=== PATIENT | male | born 1960 | race Caucasian/White ===

== ENCOUNTER → 2016-07-31 | Outpatient (REF) | payer OTHER, MEDICARE | LOC: M SFHCPLAZ 16:46 | PROVIDERS: ATTEND Dermatology | DX: L30.1 Dyshidrosis [pompholyx] (principal) ==

== ENCOUNTER 2017-06-11 14:21 | Emergency (ER) | payer OTHER, MEDICARE ==
[2017-06-11] MEDS: NS 1,000 ML IV (17:15)
[2017-06-11 17:32] LABS: BASO # 0.1 10^3/uL (0.0-0.2); BASO % 0.8 % (0.0-1.0); EOS # 0.5 10^3/uL (0.0-0.50); EOS % 4.7 % (0.0-3.0); IMMATURE GRANULOCYTE # 0.1 10^3/uL (0-0); IMMATURE GRANULOCYTE % 0.6 % (0-0); LYMPH # 3.8 10^3/uL (1.5-4.5); LYMPH % 33.9 % (24.0-44.0); MEAN CORPUSCULAR HEMOGLOBIN 29.9 pg (27.0-33.0); MEAN CORPUSCULAR HGB CONC 33.3 g/dl (32.0-36.5); MEAN CORPUSCULAR VOLUME 89.9 fl (80.0-96.0); MONO # 0.7 10^3/uL (0.0-0.8); MONO % 6.5 % (0.0-5.0); NEUTROPHILS # 6.1 10^3/uL (1.8-7.7); NEUTROPHILS % 53.5 % (36.0-66.0); PLATELET COUNT, AUTOMATED 372 10^3/uL (150-450); RED CELL DISTRIBUTION WIDTH 12.6 % (11.5-14.5); WHITE BLOOD COUNT 11.3 10^3/uL (4.0-10.0)
[2017-06-11 18:09] LABS: ALBUMIN 4.3 GM/DL (3.2-5.2); ALBUMIN/GLOBULIN RATIO 1.05 (1.00-1.93); ALKALINE PHOSPHATASE 91 U/L (45-117); ALT/SGPT 17 U/L (12-78); AMYLASE 33 U/L (25-115); ANION GAP 5 MEQ/L (8-16); AST/SGOT 12 U/L (7-37); BILIRUBIN,DIRECT 0.1 MG/DL (0.0-0.2); BILIRUBIN,TOTAL 0.4 MG/DL (0.2-1.0); BLOOD UREA NITROGEN 15 MG/DL (7-18); CARBON DIOXIDE LEVEL 32 MEQ/L (21-32); CHLORIDE LEVEL 102 MEQ/L (98-107); CREATININE FOR GFR 0.94 MG/DL (0.70-1.30); GLOMERULAR FILTRATION RATE > 60.0 (>56); GLUCOSE, FASTING 82 MG/DL (70-105); POTASSIUM SERUM 3.8 MEQ/L (3.5-5.1); SODIUM LEVEL 139 MEQ/L (136-145); TOTAL PROTEIN 8.4 GM/DL (6.4-8.2)
== END 2017-06-11 19:38 | disposition home or self-care (01) ==
LOC: M ED 14:21
DX: S39.011A Strain of muscle, fascia and tendon of abdomen, initial encounter (principal); X58.XXXA Exposure to other specified factors, initial encounter; Y92.9 Unspecified place or not applicable; Y93.9 Activity, unspecified; Z87.19 Personal history of other diseases of the digestive system; Z87.891 Personal history of nicotine dependence; E78.00 Pure hypercholesterolemia, unspecified; J45.909 Unspecified asthma, uncomplicated; Z87.01 Personal history of pneumonia (recurrent); K21.9 Gastro-esophageal reflux disease without esophagitis; Z87.442 Personal history of urinary calculi; N40.0 Benign prostatic hyperplasia without lower urinary tract symptoms; G89.29 Other chronic pain; M54.9 Dorsalgia, unspecified; M25.569 Pain in unspecified knee; F41.9 Anxiety disorder, unspecified; F32.9 Major depressive disorder, single episode, unspecified; Z79.899 Other long term (current) drug therapy
CPT/HCPCS: 76705

== ENCOUNTER → 2017-06-11 | Outpatient (CLI) | payer OTHER, MEDICARE | LOC: M WUC 13:13 | DX: R10.9 Unspecified abdominal pain (principal) ==

== ENCOUNTER → 2017-06-11 | Outpatient (CLI) | payer OTHER, MEDICARE ==
[2017-06-11 16:52] LABS: BASO # 0.1 10^3/uL (0.0-0.2); BASO % 0.9 % (0.0-1.0); EOS # 0.4 10^3/uL (0.0-0.50); EOS % 4.7 % (0.0-3.0); IMMATURE GRANULOCYTE % 0.3 % (0-0); LYMPH # 2.7 10^3/uL (1.5-4.5); MEAN CORPUSCULAR HGB CONC 33.6 g/dl (32.0-36.5); MEAN CORPUSCULAR VOLUME 89.5 fl (80.0-96.0); MONO # 0.7 10^3/uL (0.0-0.8); NEUTROPHILS # 5.5 10^3/uL (1.8-7.7); NEUTROPHILS % 58.1 % (36.0-66.0); PLATELET COUNT, AUTOMATED 337 10^3/uL (150-450); RED CELL DISTRIBUTION WIDTH 12.5 % (11.5-14.5); WHITE BLOOD COUNT 9.4 10^3/uL (4.0-10.0)
[2017-06-11 17:17] LABS: ALBUMIN 3.8 GM/DL (3.2-5.2); ALBUMIN/GLOBULIN RATIO 1.27 (1.00-1.93); ALKALINE PHOSPHATASE 77 U/L (45-117); ALT/SGPT 14 U/L (12-78); AMYLASE 28 U/L (25-115); ANION GAP 5 MEQ/L (8-16); AST/SGOT 9 U/L (7-37); BILIRUBIN,TOTAL 0.4 MG/DL (0.2-1.0); BLOOD UREA NITROGEN 15 MG/DL (7-18); CALCIUM LEVEL 8.5 MG/DL (8.5-10.1); CARBON DIOXIDE LEVEL 30 MEQ/L (21-32); CHLORIDE LEVEL 105 MEQ/L (98-107); CREATININE FOR GFR 0.87 MG/DL (0.70-1.30); GLOMERULAR FILTRATION RATE > 60.0 (>56); GLUCOSE, FASTING 84 MG/DL (70-105); POTASSIUM SERUM 4.4 MEQ/L (3.5-5.1); SODIUM LEVEL 140 MEQ/L (136-145); TOTAL PROTEIN 6.8 GM/DL (6.4-8.2)
== END ==
LOC: M WUC 13:30
DX: R10.11 Right upper quadrant pain (principal)

== ENCOUNTER → 2017-07-03 | Outpatient (REF) | payer OTHER, MEDICARE ==
[2017-07-03 13:06] LABS: HEMATOCRIT 42.3 % (42.0-52.0); HEMOGLOBIN 14.2 g/dl (14.0-18.0); MEAN CORPUSCULAR HGB CONC 33.6 g/dl (32.0-36.5); MEAN CORPUSCULAR VOLUME 89.4 fl (80.0-96.0); PLATELET COUNT, AUTOMATED 296 10^3/uL (150-450); RED BLOOD COUNT 4.73 10^6/uL (4.30-6.10); RED CELL DISTRIBUTION WIDTH 12.5 % (11.5-14.5); WHITE BLOOD COUNT 11.5 10^3/uL (4.0-10.0)
[2017-07-03 13:08] LABS: VITAMIN B12 LEVEL > 2000 PG/ML (247-911)
[2017-07-03 13:21] LABS: ALBUMIN 3.9 GM/DL (3.2-5.2); ALKALINE PHOSPHATASE 74 U/L (45-117); ALT/SGPT 15 U/L (12-78); ANION GAP 5 MEQ/L (8-16); AST/SGOT 11 U/L (7-37); BILIRUBIN,TOTAL 0.3 MG/DL (0.2-1.0); BLOOD UREA NITROGEN 22 MG/DL (7-18); CALCIUM LEVEL 8.4 MG/DL (8.5-10.1); CARBON DIOXIDE LEVEL 28 MEQ/L (21-32); CHLORIDE LEVEL 108 MEQ/L (98-107); CHOLESTEROL LEVEL 159 MG/DL (<200); CHOLESTEROL RISK RATIO 2.944 (<5); CREATININE FOR GFR 0.77 MG/DL (0.70-1.30); FREE T4 0.85 NG/DL (0.76-1.46); GLOMERULAR FILTRATION RATE > 60.0 (>56); GLUCOSE, FASTING 103 MG/DL (70-105); HDL CHOLESTEROL 54 MG/DL (>40); LDL CHOLESTEROL 93.6 MG/DL (<100); NON-HDL-C 105 MG/DL; POTASSIUM SERUM 4.6 MEQ/L (3.5-5.1); PSA SCREENING 0.33 NG/ML (< 4.0); SODIUM LEVEL 141 MEQ/L (136-145); TOTAL PROTEIN 6.9 GM/DL (6.4-8.2); TRIGLYCERIDES LEVEL 57 MG/DL (<150)
== END ==
LOC: M SFHCADAM 10:13
DX: K52.9 Noninfective gastroenteritis and colitis, unspecified (principal); E78.2 Mixed hyperlipidemia; Z12.5 Encounter for screening for malignant neoplasm of prostate; D51.9 Vitamin B12 deficiency anemia, unspecified
CPT/HCPCS: 84443

== ENCOUNTER → 2018-05-20 | Outpatient (CLI) | payer MEDICARE, OTHER ==
[~2018-05-20] MED LIST: DICY10CA13; DULO1CAP3; FINA5TAB2; GABA800T; GASTROGRAFIN SOLUTION 30ML (Q9963) As Ordered ONE; HYDR-3719; ISOVUE-370 76% 100ML VIAL (Q9967) As Ordered ONE; MELO15TA28; MONT10TA2; NAPR-49 PO; OMEP40CA2; ONDA8TAB7; SIMV40TA2; SUCR1TAB56; VENTAER; VIAG100T
--- NOTE | 2018-05-20 17:47 | REP ---
CT abdomen and pelvis with IV and oral contrast: History: Abdomen pain. Abnormal weight loss. Comparison CT study May 27, 2008. CT contrast dose: 100 ml of intravenous Isovue 370. 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 The lung bases are clear. The liver and the spleen are normal in size, homogeneous in texture. No adrenal lesion is seen on either side. No pancreatic abnormality is observed. The kidneys enhance symmetrically. There is an intrarenal calculus at mid pole level in the left kidney which is fairly large measuring 0.8 cm in greatest diameter. No hydronephrosis is seen. No bladder calculus or ureteral calculus is seen. There are dystrophic calcifications in the prostate. Prostate is not felt to be enlarged. Seminal vesicles are unremarkable. No retroperitoneal mass or adenopathy is seen. Normal caliber aorta is noted. There appear to be two adjacent right renal arteries. Small and large intestinal bowel loops are unremarkable. No small or large bowel mass lesion is appreciated. Normal appendix is seen posterior and medial to the cecum. No abdominal adenopathy is seen. No abdominal wall defect is observed. No bony destructive lesion is seen. Degenerative disc changes are noted at multiple levels in the lumbar spine. Impression: Intrarenal nephrolithiasis on the left with an 8 mm intrarenal calculus. Dystrophic calcifications in the prostate. Degenerative disc changes in the lumbar spine. No acute abdominal or pelvic abnormality. Electronically Signed by Jose Mccormack MD 05/20/2018 07:21 P
== END ==
LOC: M RAD 15:09
PROVIDERS: ATTEND Family Medicine
DX: N20.0 Calculus of kidney (principal); N42.0 Calculus of prostate; R10.84 Generalized abdominal pain; R63.4 Abnormal weight loss
CPT/HCPCS: 74177; 80053; 81479; 83520; 84439; 84443; 85025; 85610; 85730; 86255; G0463; Q9963; Q9967

== ENCOUNTER → 2018-10-06 | Outpatient (CLI) | payer MEDICARE, OTHER ==
[~2018-10-06] MED LIST changes: -GABA800T; +GABA800T4; -GASTROGRAFIN SOLUTION 30ML (Q9963) As Ordered ONE; -ISOVUE-370 76% 100ML VIAL (Q9967) As Ordered ONE; -NAPR-49 PO; +NAPR-837 PO
== END ==
LOC: M WUC 09:42
PROVIDERS: ATTEND Internal Medicine Gastroenterology
DX: R19.7 Diarrhea, unspecified (principal)

== ENCOUNTER → 2018-10-07 | Outpatient (CLI) | payer MEDICARE, OTHER ==
[~2018-10-07] MED LIST changes: +GLUCAGON FOR INJ 1 MG VIAL (J1610) As Ordered ONE; +ISOVUE-370 76% 100ML VIAL (Q9967) As Ordered ONE; +VoLumen 0.1% SUSPENSION 450ML BOTTLE As Ordered ONE
--- NOTE | 2018-10-07 16:19 | REP ---
CT Enterography: With IV and oral contrast. History: Diarrhea. Abnormal weight loss. Generalized abdomen pain. Comparison study: Comparison CT study May 20, 2018. CT enterography Technique: The patient ingested oral Volumen for PO contrast per protocol. 0.6 mg of intravenous glucagon is administered. 100 ml of Isovue 370 is given intravenously for intravenous contrast. Helical scanning is acquired. Arterial phase and delayed phase imaging was acquired. Thick slab coronal and sagittal MIP images are generated. In addition coronal and sagittal multiplanar re-formation images are generated and reviewed along with axial images. 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 Lung bases are clear. There is no evidence of pleural effusion or upper abdominal ascites. The patient's stomach is dilated with ingested low density bowel contrast agent. No abnormal wall thickening or gastric mass lesion is seen. The liver and the spleen are normal in size homogeneous in texture. No adrenal lesion is seen. No abnormalities noted in the pancreas. The kidneys enhance symmetrically. There is an intrarenal calculus again noted in the left kidney upper pole region measuring 12 mm in greatest diameter. No hydronephrosis is seen. No retroperitoneal mass or adenopathy is observed. There are dystrophic calcifications in the prostate. Urinary bladder is unremarkable. The jejunal and ileal loops are normal in caliber. No small bowel mass lesion is seen. No abnormal bowel wall enhancement is observed. There are a few normal-sized right lower quadrant mesenteric lymph nodes. No mesenteric adenopathy is seen. No free fluid or free air is observed. Maximal intensity projection images show no additional abnormality. No abdominal wall defect is seen. There are degenerative disc changes in the lumbar spine. Impression: Somewhat dilated stomach. Otherwise negative CT enterography. There is a intrarenal calculus in the left kidney 12 mm in diameter without hydronephrosis. Dystrophic calcifications are seen in the prostate gland. Electronically Signed by Jose Mccormack MD 10/07/2018 04:31 P
== END ==
LOC: M RAD 12:56
PROVIDERS: ATTEND Internal Medicine Gastroenterology
DX: R19.7 Diarrhea, unspecified (principal); R63.4 Abnormal weight loss; N20.0 Calculus of kidney; N42.0 Calculus of prostate
CPT/HCPCS: 74177; J1610; Q9967

== ENCOUNTER 2018-10-29 10:32 | Day surgery (SDC) | payer MEDICARE, OTHER ==
[~2018-10-29] VITALS: Ht 185.4 cm; Wt 99.3 kg
[~2018-10-29 10:32] MED LIST changes: +ADV250INH INH; +CREO24CA PO; +CYMB60CA3 PO; +DICL13PA TD; +FLOM0.4C39 PO; -GLUCAGON FOR INJ 1 MG VIAL (J1610) As Ordered ONE; -ISOVUE-370 76% 100ML VIAL (Q9967) As Ordered ONE; -VoLumen 0.1% SUSPENSION 450ML BOTTLE As Ordered ONE
[2018-10-29] MEDS ORDERED: NS 1,000 ML IV ONE (10:45)
[2018-10-29] MEDS ORDERED: PROPOFOL 200 MG/20 ML VIAL As Ordered ONE (12:36)
[2018-10-29] MEDS ORDERED: LIDOCAINE 2% INJ 100 MG/5 ML SDV (FOR ANES.) As Ordered ONE (12:36)
[2018-10-29] MEDS ORDERED: fentaNYL 100 MCG/2 ML INJECTION (J3010) As Ordered ONE (12:36)
--- NOTE | 2018-10-29 12:45 | ROOR ---
Patient Name: Russell Valdes Procedure Date: 10/29/2018 12:24 PM Date of : 1960 Age: 58 Room: [facility] Gender: Male Note Status: Finalized Procedure: Upper GI endoscopy Indications: Generalized abdominal pain, Nausea, Weight loss Providers: Ck MON[place] MD Referring MD: Reji Damico MD Requesting Provider: Medicines: Monitored Anesthesia Care Complications: No immediate complications. Procedure: Pre-Anesthesia Assessment: - The heart rate, respiratory rate, oxygen saturations, blood pressure, adequacy of pulmonary ventilation, and response to care were monitored throughout the procedure. The Endoscope was introduced through the mouth, and advanced to the third part of duodenum. The upper GI endoscopy was accomplished without difficulty. The patient tolerated the procedure well. Findings: The esophagus was normal. The stomach was normal. Large compliant stomach, sometimes seen in gastroparesis. (Note: contrary to Upper GI from 2009--I do not see any hiatal hernia today) The examined duodenum was normal. Biopsies for histology were taken with a cold forceps in the second portion of the duodenum and in the third portion of the duodenum for evaluation of celiac disease. Impression: - Normal esophagus.- GE junction at 42 cm. Normal Z line - Normal stomach. (No hiatal hernia is seen) - Normal examined duodenum. - Biopsies were taken with a cold forceps for evaluation of celiac disease. Recommendation: - Continue present medications. - Eat smaller, more frequent meals throughout the day. - Low fat diet. - Liquid/soft foods are tolerated better than solid foods. - Low fiber/well cooked vegetables are tolerated better than high fiber/fibrous foods/raw vegetables. - Avoid medications that inhibit gastric/intestinal motility such as narcotic medications. - Telephone endoscopist for pathology results in 2 weeks. Ck Montana MD Ck MONTANA MD 10/29/2018 12:45:01 PM Electronically signed by Ck MONTANA MD Number of Addenda: 0 Note Initiated On: 10/29/2018 12:24 PM Estimated Blood Loss: Estimated blood loss: none.
--- NOTE | 2018-10-29 13:06 | ROOR ---
Patient Name: Russell Valdes Procedure Date: 10/29/2018 12:25 PM Date of : 1960 Age: 58 Room: [facility] Gender: Male Note Status: Finalized Procedure: Colonoscopy Indications: Generalized abdominal pain, Clinically significant diarrhea of unexplained origin, Family history of colon cancer in a distant relative, Weight loss Providers: Ck [place] MD Referring MD: Reji Damico MD Requesting Provider: Medicines: Monitored Anesthesia Care Complications: No immediate complications. Procedure: Pre-Anesthesia Assessment: - The heart rate, respiratory rate, oxygen saturations, blood pressure, adequacy of pulmonary ventilation, and response to care were monitored throughout the procedure. The Colonoscope was introduced through the anus and advanced to 15 cm into the ileum. The colonoscopy was performed without difficulty. The patient tolerated the procedure well. The quality of the bowel preparation was good. Findings: The perianal and digital rectal examinations were normal. The colon (entire examined portion) was redundant. A 5 mm polyp was found in the sigmoid colon. The polyp was sessile. The polyp was removed with a cold snare. Resection and retrieval were complete. Small Internal Hemorrhoids. The exam was otherwise normal throughout the examined colon. The terminal ileum appeared normal. Biopsies for histology were taken with a cold forceps for evaluation of microscopic colitis. Impression: - One 5 mm polyp in the sigmoid colon, removed with a cold snare. Resected and retrieved. - Small Internal Hemorrhoids. - The colon is otherwise normal. - The terminal ileum is normal. - Biopsies were taken with a cold forceps for evaluation of microscopic colitis. Recommendation: - Continue present medications. - Telephone endoscopist for pathology results in 2 weeks. - If the pathology report reveals adenomatous tissue, then repeat the colonoscopy for surveillance in 5 years. Ck Montana MD Ck MONTANA MD 10/29/2018 1:05:51 PM Electronically signed by Ck MONTANA MD Number of Addenda: 0 Note Initiated On: 10/29/2018 12:25 PM Estimated Blood Loss: Estimated blood loss: none.
[2018-10-29 13:25] VITALS: BP 110/80
== END 2018-10-29 13:36 | disposition home or self-care (01) ==
LOC: M OPP 10:32
PROVIDERS: ATTEND Internal Medicine Gastroenterology
DX: K63.5 Polyp of colon (principal); Q43.8 Other specified congenital malformations of intestine; R10.84 Generalized abdominal pain; R19.7 Diarrhea, unspecified; Z80.0 Family history of malignant neoplasm of digestive organs; R11.0 Nausea; Z79.891 Long term (current) use of opiate analgesic; Z79.899 Other long term (current) drug therapy; Z87.891 Personal history of nicotine dependence
CPT/HCPCS: 43239; 45380; 45385; 88305; J3010

== ENCOUNTER → 2019-04-13 | Outpatient (REF) | payer MEDICARE, OTHER ==
[~2019-04-13] MED LIST changes: -DULO1CAP3; +DULO1CAP6; -OMEP40CA2; +OMEP40CA97
[2019-04-13 13:08] LABS: HEMATOCRIT 45.1 % (42.0-52.0); HEMOGLOBIN 14.9 g/dl (13.5-17.5); MEAN CORPUSCULAR HEMOGLOBIN 30.5 pg (27.0-33.0); MEAN CORPUSCULAR VOLUME 92.2 fl (80.0-96.0); PLATELET COUNT, AUTOMATED 287 10^3/uL (150-450); RED BLOOD COUNT 4.89 10^6/uL (4.30-6.10); WHITE BLOOD COUNT 10.3 10^3/uL (4.0-10.0)
[2019-04-13 13:23] LABS: ALBUMIN 3.9 GM/DL (3.2-5.2); ALT/SGPT 19 U/L (12-78); BILIRUBIN,TOTAL 0.5 MG/DL (0.2-1.0); BLOOD UREA NITROGEN 22 MG/DL (7-18); CALCIUM LEVEL 9.5 MG/DL (8.5-10.1); CARBON DIOXIDE LEVEL 29 MEQ/L (21-32); CHLORIDE LEVEL 107 MEQ/L (98-107); CHOLESTEROL LEVEL 178 MG/DL (<200); CHOLESTEROL RISK RATIO 2.438 (<5); CREATININE FOR GFR 0.83 MG/DL (0.70-1.30); GLOMERULAR FILTRATION RATE > 60.0 (>56); GLUCOSE, FASTING 97 MG/DL (70-100); HDL CHOLESTEROL 73 MG/DL (>40); LDL CHOLESTEROL 84 MG/DL (<100); NON-HDL-C 105 MG/DL; POTASSIUM SERUM 4.2 MEQ/L (3.5-5.1); SODIUM LEVEL 140 MEQ/L (136-145); TOTAL PROTEIN 7.1 GM/DL (6.4-8.2); TRIGLYCERIDES LEVEL 106 MG/DL (<150)
[2019-04-13 13:25] LABS: FOLATE 13.5 NG/ML; VITAMIN B12 LEVEL > 2000 PG/ML
== END ==
LOC: M SFHCADAM 10:12
PROVIDERS: ATTEND Family Medicine
DX: K52.838 Other microscopic colitis (principal); D51.9 Vitamin B12 deficiency anemia, unspecified; E78.2 Mixed hyperlipidemia; Z12.5 Encounter for screening for malignant neoplasm of prostate
CPT/HCPCS: 80053; 80061; 82607; 82746; 85027; G0103; G0463

== ENCOUNTER 2020-02-06 09:28 | Emergency (ER) | payer OTHER, MEDICARE ==
[~2020-02-06] VITALS: Ht 188 cm; Wt 106.4 kg
[~2020-02-06 09:28] MED LIST changes: -MONT10TA2; +MONT10TA4; +ONDA8TAB10; -ONDA8TAB7; -SIMV40TA2; +SIMV40TA20
[2020-02-06] MEDS ORDERED: ANEXSIA, NORCO 7.5MG/325MG TABLET(HYDROCODONE/APAP) PO ONE (10:00)
[2020-02-06 10:30] VITALS: BP 135/82
--- NOTE | 2020-03-07 07:55 | REP ---
LEFT KNEE SERIES: 5-VIEWS HISTORY: Inability to bear weight after a fall down stairs. FINDINGS: Five views of the left knee demonstrate normal bones, joints, and soft tissues. No fracture or subluxation is seen. IMPRESSION: No fracture noted. MTDD
--- NOTE | 2020-03-07 07:56 | REP ---
LEFT FEMUR: 3-VIEWS HISTORY: Inability to bear weight after a fall down stairs. FINDINGS: Three views of the left femur demonstrate normal bones, joints, and soft tissues. No fracture or subluxation is seen. IMPRESSION: No fracture noted. MTDD
== END 2020-02-06 10:40 | disposition home or self-care (01) ==
LOC: M ED 09:28
DX: M79.652 Pain in left thigh (principal); M25.562 Pain in left knee; W10.8XXA Fall (on) (from) other stairs and steps, initial encounter; Y92.019 Unspecified place in single-family (private) house as the place of occurrence of the external cause; Z79.51 Long term (current) use of inhaled steroids; Z79.899 Other long term (current) drug therapy

== ENCOUNTER → 2020-02-09 | Outpatient (CLI) | payer OTHER, MEDICARE | LOC: M LABSMTC 11:06 | PROVIDERS: ATTEND Anesthesiology | DX: Z01.812 Encounter for preprocedural laboratory examination (principal); Z20.828 Contact with and (suspected) exposure to other viral communicable diseases | CPT/HCPCS: C9803; U0002 ==

== ENCOUNTER 2020-02-10 11:53 | Day surgery (SDC) | payer OTHER, MEDICARE ==
[~2020-02-10] VITALS: Ht 188 cm; Wt 103.9 kg
[2020-02-10] MEDS ORDERED: BUPIVACAINE/EPIN 0.25% 30 ML VIAL As Ordered ONE (13:18)
[2020-02-10] MEDS ORDERED: ceFAZolin 1GM VIAL (J0690 PER 500MG) As Ordered ONE (13:20)
[2020-02-10] MEDS ORDERED: ceFAZolin 2 GM/D5W 50 ML IV BAG (J0690 PER 500MG) As Ordered ONE (13:23)
[2020-02-10] MEDS ORDERED: ONDANSETRON 4MG/2ML VIAL As Ordered ONE ×2 (13:31→15:12)
[2020-02-10] MEDS ORDERED: METOCLOPRAMIDE INJ 10MG/2ML VIAL (J2765 PER 1) As Ordered ONE (13:31)
[2020-02-10] MEDS ORDERED: KETOROLAC 60MG 2ML VIAL As Ordered ONE (13:31)
[2020-02-10] MEDS ORDERED: propofoL 200 MG/20 ML VIAL As Ordered ONE (13:31)
[2020-02-10] MEDS ORDERED: LIDOCAINE 2% 100MG/5ML SDV (FOR ANES.) As Ordered ONE (13:31)
[2020-02-10] MEDS ORDERED: fentaNYL 100 MCG/2 ML INJECTION (J3010) As Ordered ONE ×2 (13:32→15:13)
[2020-02-10] MEDS ORDERED: MIDAZOLAM INJ 2MG/2ML VIAL (J2250 PER 1MG) As Ordered ONE (13:33)
[2020-02-10] MEDS ORDERED: ROCURONIUM BROMIDE 50 MG/5 ML VIAL As Ordered ONE (13:34)
[2020-02-10] MEDS ORDERED: HYDROmorphone HCL 2 MG/ML 1ML VIAL (J1170) As Ordered ONE (14:16)
[2020-02-10] MEDS ORDERED: PERCOCET 5MG/325MG TAB As Ordered ONE (15:12)
[2020-02-10] MEDS: fentaNYL 100 MCG/2 ML INJECTION (J3010) IV PRN ×4 (15:15→15:31)
[2020-02-10] MEDS ORDERED: LR 1,000 ML IV SCH ×2 (15:30)
[2020-02-10] MEDS ORDERED: PERCOCET 5MG/325MG TAB PO PRN (15:30)
[2020-02-10] MEDS ORDERED: MORPHINE 2 MG/ML 1ML VIAL (J2270) IV PRN (15:30)
[2020-02-10] MEDS ORDERED: ACETAMINOPHEN TAB 650MG DOSE (2X325MG) PO PRN (15:30)
[2020-02-10] MEDS ORDERED: NORCO, ANEXSIA 5/325MG TABLET (HYDROcodone/ACETAMINOPHEN) PO PRN (15:30)
[2020-02-10] MEDS ORDERED: ONDANSETRON 4MG/2ML VIAL IV PRN (15:30)
[2020-02-10] MEDS: MORPHINE 2 MG/ML 1ML VIAL (J2270) IV PRN ×3 (15:45→16:19)
[2020-02-10] MEDS ORDERED: KETOROLAC 30 MG/ML 1ML VIAL As Ordered ONE (16:06)
[2020-02-10] MEDS ORDERED: KETOROLAC 30 MG/ML 1ML VIAL IV PRN (16:30)
[2020-02-10 17:11] VITALS: BP 134/97
--- NOTE | 2020-03-03 15:16 | ECGEPIP ---
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
--- NOTE | 2020-03-09 09:18 | RO ---
DATE OF OPERATION: 02/10/2020 PREOPERATIVE DIAGNOSIS: Left quadriceps tendon rupture. POSTOPERATIVE DIAGNOSIS: Left quadriceps tendon rupture. PLANNED PROCEDURE: Repair of left quadriceps tendon. PROCEDURE PERFORMED: Repair of left quadriceps tendon. SURGEON: Roby Miner MD ANESTHESIOLOGIST: Kimo Aguilera MD ANESTHESIA: General anesthetic. OPERATIVE PREAMBLE: This 59-year-old man who fell down some steps, sustained a quadriceps tendon rupture but clinically intact both on clinical exam as well as MRI. We talked about the pros, cons, risks, benefits of nonsurgical management versus surgical repair. I reiterated the risks in preoperative holding, marked the left lower extremity and proceeded to surgery. OPERATIVE REPORT: The patient was brought to the operating room theater. He was administered general anesthetic. He was placed supine on the operating room table. Two grams of IV Ancef was administered. All bony prominences were appropriately padded. A tourniquet was applied to the left thigh and appropriately padded. A bump was used under the left leg as well as bone foam and leg positioner. The limb was prepped and draped in the usual sterile fashion, allowing over three minutes for the chlorhexidine based preparatory solution to thoroughly dry. A preoperative time-out was performed, confirming the site, the patient, and surgery. I then elevated the leg and inflated the tourniquet to 250 mmHg. I made a standard anterior midline incision. I carried the dissection down through skin and subcutaneous tissue to achieve meticulous hemostasis. I identified the quadriceps tendon rupture. I removed a small amount of distal aspect of the diseased tendon. I removed any remaining tendon stump from the proximal end of the patella. I freshened this up using a combination of curette and rongeurs. I created a bleeding trough of bone for tendon healing. No other injuries were noted. The retinaculum was indeed torn on both sides. I used #5 Ethibond high- strength nonabsorbable suture in a Krackow whipstitch technique up and down the quadriceps tendon to create four suture limbs. I made three drill holes longitudinally in the patella. I was trying to stay extra-articular with 2.0 mm drill bit. I passed the sutures into the holes, the two middle ones through the middle hole and the lateral and medial sutures through each bone hole respectively. I tied the sutures [id number] and then to each other in a standard fashion with the knee in full extension, achieving good reduction of the tendon down to the bleeding bony surface for healing. I then used running #1 Vicryl suture to close the retinaculum on both sides. It was taken through a gentle range of motion, no tendon gapping up to at least 50 degrees of flexion. The tourniquet was taken down, the wound thoroughly irrigated. The subcutaneous tissue was closed with interrupted 2-0 Vicryl suture and running 2-0 Vicryl. Then skin was cleaned with wet-and-dry dressing. Ten mL of 1/4% Marcaine with 1:100,000 epinephrine was instilled in and around the incision sites. Wesley were used to close the skin. Adaptic, 4x8 gauze and ABD dressing was then placed over the top of the incision, overwrapped with a sterile 6-inch Patel bandage. The patients lower extremity was placed into a hinged knee brace locked in full extension. The patient was woken up from general anesthetic, transferred off the operating room table and taken to the postanesthesia care unit in stable condition. All sponge, needle, and instrument counts were correct. No complications. Estimated blood loss: 50 cc. Plan is for the patient to be nonweightbearing as tolerated in full extension, locked in extension in the brace. Follow-up in the office in two weeks time. He will be discharged home according to day surgery criteria and to mobilize with his crutches. In terms of pain control, I prescribed MS Contin 50 mg p.o. b.i.d. for pain control. He is already on high dose of oral narcotics. He can use those tablets for breakthrough pain as well as oral Naproxen 500 mg p.o. b.i.d. which I prescribed him as well. Then he will be followed up in two weeks time to discontinue the wesley. JAVIER
== END 2020-02-10 17:28 | disposition home or self-care (01) ==
LOC: M SDC 11:53
PROVIDERS: ATTEND Orthopaedic Surgery Sports Medicine
DX: S76.112A Strain of left quadriceps muscle, fascia and tendon, initial encounter (principal); W10.9XXA Fall (on) (from) unspecified stairs and steps, initial encounter; Y92.89 Other specified places as the place of occurrence of the external cause; Y93.9 Activity, unspecified; Y99.9 Unspecified external cause status; E78.5 Hyperlipidemia, unspecified; K57.92 Diverticulitis of intestine, part unspecified, without perforation or abscess without bleeding; J45.909 Unspecified asthma, uncomplicated; K21.9 Gastro-esophageal reflux disease without esophagitis; L40.8 Other psoriasis; Z79.899 Other long term (current) drug therapy; Z87.891 Personal history of nicotine dependence; N40.0 Benign prostatic hyperplasia without lower urinary tract symptoms; Z91.81 History of falling
CPT/HCPCS: 27385; 93005; J0690; J1170; J1885; J2250; J2270; J2405; J2765; J3010

== ENCOUNTER → 2020-04-17 | Outpatient (CLI) | payer OTHER, MEDICARE | LOC: M LABSMTC 13:28 | PROVIDERS: ATTEND Anesthesiology | DX: Z01.812 Encounter for preprocedural laboratory examination (principal); Z20.828 Contact with and (suspected) exposure to other viral communicable diseases ==

== ENCOUNTER 2020-04-21 09:41 | Day surgery (SDC) | payer OTHER, MEDICARE ==
[~2020-04-21] VITALS: Ht 188 cm; Wt 99.7 kg
[~2020-04-21 09:41] MED LIST changes: +LR 1,000 ML IV ONE; +ceFAZolin SOD 2 GM in IV 1 EA IV ONE
[2020-04-21] MEDS ORDERED: fentaNYL 100 MCG/2 ML INJECTION (J3010) As Ordered ONE ×4 (10:19→13:53)
[2020-04-21] MEDS ORDERED: MIDAZOLAM INJ 2MG/2ML VIAL (J2250 PER 1MG) As Ordered ONE (10:19)
[2020-04-21] MEDS ORDERED: ACETAMINOPHEN 1000MG 100ML IV BTL (OFIRMEV) (J0131 PER 10MG) As Ordered ONE (10:22)
[2020-04-21] MEDS ORDERED: ROCURONIUM BROMIDE 50 MG/5 ML VIAL As Ordered ONE (10:22)
[2020-04-21] MEDS ORDERED: propofoL 200 MG/20 ML VIAL As Ordered ONE (10:22)
[2020-04-21] MEDS ORDERED: ONDANSETRON 4MG/2ML VIAL As Ordered ONE (10:22)
[2020-04-21] MEDS ORDERED: LIDOCAINE 2% 100MG/5ML SDV (FOR ANES.) As Ordered ONE (10:22)
[2020-04-21] MEDS ORDERED: KETOROLAC 60MG 2ML VIAL As Ordered ONE (10:22)
[2020-04-21] MEDS ORDERED: SUGAMMADEX SODIUM 500 MG/5 ML VIAL (BRIDION) As Ordered ONE (10:22)
[2020-04-21] MEDS ORDERED: ceFAZolin 1GM VIAL (J0690 PER 500MG) As Ordered ONE (10:22)
[2020-04-21] MEDS ORDERED: dexameTHASONE 4 MG/ML 1ML VIAL (J1100 PER 1MG) As Ordered ONE (10:23)
[2020-04-21] MEDS ORDERED: BUPIVACAINE/EPIN 0.5% 30 ML VIAL As Ordered ONE (12:40)
[2020-04-21] MEDS ORDERED: HYDROMORPHONE HCL 0.5 MG/ 0.5 ML SYRINGE (J1170 PER 1) As Ordered ONE ×3 (13:58→14:15)
[2020-04-21] MEDS: HYDROMORPHONE HCL 0.5 MG/ 0.5 ML SYRINGE (J1170 PER 1) IV PRN ×7 (14:04→15:02)
[2020-04-21] MEDS ORDERED: hydrALAZINE 20MG/ML 1ML VIAL (J0360 PER 20MG) As Ordered ONE (14:15)
[2020-04-21] MEDS ORDERED: PERCOCET 5MG/325MG TAB As Ordered ONE (14:22)
[2020-04-21] MEDS ORDERED: ONDANSETRON 4MG/2ML VIAL IV PRN (14:30)
[2020-04-21] MEDS ORDERED: hydrALAZINE 20MG/ML 1ML VIAL (J0360 PER 20MG) IV PRN (14:30)
[2020-04-21] MEDS ORDERED: LR 1,000 ML IV SCH (14:30)
[2020-04-21] MEDS ORDERED: fentaNYL 100 MCG/2 ML INJECTION (J3010) IV PRN (14:30)
[2020-04-21] MEDS ORDERED: PERCOCET 5MG/325MG TAB PO PRN (14:30)
[2020-04-21] MEDS ORDERED: HYDROmorphone HCL 2 MG/ML 1ML VIAL (J1170) As Ordered ONE ×2 (14:44→14:58)
[2020-04-21 16:50] VITALS: BP 129/70
--- NOTE | 2020-04-25 11:07 | RO ---
DATE OF OPERATION: 04/21/2020 PREOPERATIVE DIAGNOSIS: Left quadriceps tendon retear following surgery. POSTOPERATIVE DIAGNOSIS: Left quadriceps tendon retear following surgery. PLANNED PROCEDURE: Left quadriceps revision repair and possible Allograft tissue. PROCEDURE PERFORMED: Left quadriceps revision repair. SURGEON: Roby Miner MD. TRACK SWEEPER: Kimo Aguilera MD. ANESTHESIA: General. OPERATIVE PREAMBLE: This 59-year-old man was doing well following a quadriceps tendon repair. Unfortunately, a large dog hit into the back of his knee hyperflexing his knee, and he sustained immediate pain, pop, difficulty lifting his leg, regression in his physical therapy with MRI evidence for a retear. We discussed the pros, cons, risks, and benefits of going ahead with revision surgery. I marked the left lower extremity and proceeded to the surgical theatre. OPERATIVE REPORT: The patient was brought to the operating theatre and administered general anesthetic. He was placed supine on the operating table. A tourniquet was applied to the left thigh and appropriately padded. All bony prominences were padded. SCDs were used on the down leg. The limb was prepped and draped in the usual sterile fashion allowing over three minutes for prep solution drying time prior to draping. A time-out was performed to confirm the site, side, patient, and surgery. The limb was elevated and tourniquet inflated to 250 mmHg. Standard longitudinal incision was created through the same incision site. 10 mL of 0.5% Marcaine with 1:100,000 epinephrine was instilled around the incision site. Identified the site of retear. This was due to the sutures breaking near the attachment to the patella. I removed all the suture material that I was able to do. Drill holes were normally placed and still in place with no fracture. A slightly deeper trough was then created to create a bony bleeding surface for tendon healing. I used #5 Arthrex FiberWire in a running locking Krackow stitch to create four suture limbs. The two middle ones were passed through the middle drill hole and the medial and lateral were placed through each drill hole respectively. These were tied [id number] alternating half inches for five throws and cut short. The retinaculum was closed with #1 Vicryl suture. Prior to fixing the tendon, I did ensure that it came nicely to bone with minimal tensioning and releasing the adhesions. The tendon was approximately fixated in full extension with no gapping with 0-30 degree range of motion testing. Tourniquet was let down. The wound was irrigated. Subcutaneous tissues were closed with interrupted 2-0 Vicryl sutures. Prineo dressing placed in the standard fashion longitudinally overlying the incision for dressing and wound closure management. The patient was woken up from the general anesthetic. Tourniquet taken down prior to ending the case. The wound was thoroughly irrigated followed by application of the Prineo dressing. The patients left lower extremity was placed into a brace locked in full extension and appropriately padded where the strap went over the incision. The patient was transferred off the operating room table and transferred to the postanesthetic care unit in stable condition. All sponge, needle, and instrument counts were correct. No complications. Estimated blood loss 50 mL. Plan for the patient is to be toe-touch weightbearing and brace locked in full extension for at least six weeks. At this point he needs to slow down his rehab and I let him know this. The patient will be seen in the office in two weeks time. He will be discharged home according to day surgery criteria and prescription will be sent in to his pharmacy of choice similar to previous surgery. Patient had received a postoperative block as well due to adequate pain control. JAVIER
== END 2020-04-21 16:50 | disposition home or self-care (01) ==
LOC: M SDC 09:41
PROVIDERS: ATTEND Orthopaedic Surgery Sports Medicine
DX: S76.112A Strain of left quadriceps muscle, fascia and tendon, initial encounter (principal); X50.0XXA Overexertion from strenuous movement or load, initial encounter; Y92.89 Other specified places as the place of occurrence of the external cause; Y93.9 Activity, unspecified; Y99.9 Unspecified external cause status; K21.9 Gastro-esophageal reflux disease without esophagitis; N40.0 Benign prostatic hyperplasia without lower urinary tract symptoms; J45.909 Unspecified asthma, uncomplicated; L40.9 Psoriasis, unspecified; Z79.899 Other long term (current) drug therapy; F41.9 Anxiety disorder, unspecified; F32.9 Major depressive disorder, single episode, unspecified
CPT/HCPCS: 27385; 64447; J0131; J0360; J0690; J1100; J1170; J1885; J2250; J2405; J3010

== ENCOUNTER → 2020-07-24 | Outpatient (CLI) | payer MEDICARE ==
[~2020-07-24] MED LIST changes: +CEPH500C PO; -LR 1,000 ML IV ONE; +MONT10TA10; -MONT10TA4; -ceFAZolin SOD 2 GM in IV 1 EA IV ONE
[2020-07-24 17:14] LABS: HEMATOCRIT 39.5 % (42.0-52.0); HEMOGLOBIN 12.6 g/dl (13.5-17.5); MEAN CORPUSCULAR HEMOGLOBIN 28.8 pg (27.0-33.0); MEAN CORPUSCULAR HGB CONC 31.9 g/dl (32.0-36.5); MEAN CORPUSCULAR VOLUME 90.2 fl (80.0-96.0); PLATELET COUNT, AUTOMATED 381 10^3/uL (150-450); RED BLOOD COUNT 4.38 10^6/uL (4.30-6.10); WHITE BLOOD COUNT 12.4 10^3/uL (4.0-10.0)
[2020-07-24 17:26] LABS: ALBUMIN 3.2 GM/DL (3.2-5.2); ALT/SGPT 23 U/L (12-78); BILIRUBIN,TOTAL 0.3 MG/DL (0.2-1.0); BLOOD UREA NITROGEN 13 MG/DL (7-18); CALCIUM LEVEL 9.4 MG/DL (8.5-10.1); CARBON DIOXIDE LEVEL 28 MEQ/L (21-32); CHLORIDE LEVEL 106 MEQ/L (98-107); CHOLESTEROL LEVEL 167 MG/DL (<200); CHOLESTEROL RISK RATIO 4.073 (<5); CREATININE FOR GFR 0.69 MG/DL (0.70-1.30); FREE T4 1.08 NG/DL (0.76-1.46); GLOMERULAR FILTRATION RATE > 60.0 (>56); GLUCOSE, FASTING 110 MG/DL (70-100); HDL CHOLESTEROL 41 MG/DL (>40); LDL CHOLESTEROL 103 MG/DL (<100); NON-HDL-C 126 MG/DL; POTASSIUM SERUM 3.8 MEQ/L (3.5-5.1); SODIUM LEVEL 142 MEQ/L (136-145); THYROID STIMULATING HORMONE 0.392 uIU/ML (0.358-3.740); TOTAL PROTEIN 6.4 GM/DL (6.4-8.2); TRIGLYCERIDES LEVEL 114 MG/DL (<150)
== END ==
LOC: M WUC 13:01
PROVIDERS: ATTEND Family Medicine
DX: K52.838 Other microscopic colitis (principal); F32.9 Major depressive disorder, single episode, unspecified; E78.2 Mixed hyperlipidemia; Z12.5 Encounter for screening for malignant neoplasm of prostate
CPT/HCPCS: 36415; 80053; 80061; 84439; 84443; 85027; G0103

== ENCOUNTER 2020-07-25 14:41 | Emergency (ER) | payer OTHER, MEDICARE ==
[~2020-07-25] VITALS: Ht 188 cm; Wt 97.0 kg
[~2020-07-25 14:41] MED LIST changes: -CEPH500C PO
[2020-07-25 15:41] LABS: HEMATOCRIT 40.2 % (42.0-52.0); HEMOGLOBIN 13.3 g/dl (13.5-17.5); MEAN CORPUSCULAR HGB CONC 33.1 g/dl (32.0-36.5); MEAN CORPUSCULAR VOLUME 90.5 fl (80.0-96.0); PLATELET COUNT, AUTOMATED 426 10^3/uL (150-450); RED BLOOD COUNT 4.44 10^6/uL (4.30-6.10); WHITE BLOOD COUNT 11.9 10^3/uL (4.0-10.0)
[2020-07-25 16:14] LABS: ALBUMIN 3.3 GM/DL (3.2-5.2); ALT/SGPT 29 U/L (12-78); BILIRUBIN,DIRECT 0.1 MG/DL (0.0-0.2); BILIRUBIN,TOTAL 0.3 MG/DL (0.2-1.0); BLOOD UREA NITROGEN 12 MG/DL (7-18); CARBON DIOXIDE LEVEL 28 MEQ/L (21-32); CHLORIDE LEVEL 106 MEQ/L (98-107); CREATININE FOR GFR 0.72 MG/DL (0.70-1.30); GLOMERULAR FILTRATION RATE > 60.0 (>56); GLUCOSE, FASTING 99 MG/DL (70-100); POTASSIUM SERUM 3.3 MEQ/L (3.5-5.1); SODIUM LEVEL 141 MEQ/L (136-145); TOTAL PROTEIN 7.3 GM/DL (6.4-8.2)
[2020-07-25] MEDS ORDERED: cefTRIAXone SOD 1 GM in D5W MINI-BAG PLUS 50 ML IV ONE (16:45)
[2020-07-25] MEDS ORDERED: NS 1,000 ML IV ONE (16:45)
[2020-07-25 16:46] LABS: ANISOCYTOSIS 1+; ATYPICAL LYMPH 9 % (0-5); BASOPHILS 1 % (0-1); EOSINOPHILS 3 % (0-3); LYMPHOCYTES 32 % (16-44); METAMYELOCYTES 1 % (0-0); NEUTROPHILS 54 % (28-66); OVALOCYTES 1+; PLATELET ESTIMATE INCREASED (NORMAL); POIKILOCYTOSIS 1+
[2020-07-25] MEDS ORDERED: CEPH500C PO (18:01)
[2020-07-25 18:28] VITALS: BP 185/105
[2020-09-01] MEDS ORDERED: BUDE3CAP PO (14:19)
[2020-09-01] MEDS ORDERED: PSEU30TA85 PO (14:19)
[2020-09-01] MEDS ORDERED: D31000TA2 PO (14:19)
[2020-09-01] MEDS ORDERED: CLOB0.0526 TOP (14:19)
[2020-09-01] MEDS ORDERED: DICY20TA3 PO (14:19)
[2020-09-01] MEDS ORDERED: HM V5000 PO (14:19)
[2020-09-01] MEDS ORDERED: MONT10TA10 PO (14:19)
[2020-09-01] MEDS ORDERED: VITA500C19 PO (14:19)
== END 2020-07-25 18:35 | disposition home or self-care (01) ==
LOC: M ED 14:41
DX: N13.30 Unspecified hydronephrosis (principal); N39.0 Urinary tract infection, site not specified; N20.0 Calculus of kidney; Z87.19 Personal history of other diseases of the digestive system; Z79.899 Other long term (current) drug therapy
CPT/HCPCS: 74176; 80048; 80076; 81001; 83605; 85025; 87040; 87088; 87186; 96365; 99284; J0696

== ENCOUNTER → 2020-07-25 | Outpatient (CLI) | payer MEDICARE, OTHER ==
--- NOTE | 2020-07-25 13:56 | REP ---
INDICATION: RENAL STONE ? OBST COMPARISON: CT 10/07/2018. TECHNIQUE: CT Scan of the abdomen and pelvis was performed without intravenous contrast. Sagittal and coronal reconstruction images performed. FINDINGS: Lung bases: Unremarkable. Liver: Grossly unremarkable. Gallbladder: Unremarkable. Spleen: Grossly unremarkable.. Adrenals: Normal. Pancreas: Grossly unremarkable.. Kidneys: There is a 1 cm calculus in the left renal pelvis. This is at the ureteropelvic junction. There appears to be mild left hydronephrosis and perinephric stranding. There is also a punctate calcification in the mid left renal collecting system. Small and large bowel: Grossly unremarkable.. Free fluid: None. Abdominal aorta: No aneurysm. Adenopathy: None. Appendix: Not inflamed. Osseous structures: There are degenerative changes of the spine without compression deformity. Pelvis: No mass. No bladder calculus seen. Mild air in the bladder is likely from recent catheterization. IMPRESSION: There is a 1 cm calculus at the left ureteropelvic junction causing mild left hydronephrosis. Mild air in the urinary bladder is likely from recent catheterization. <Electronically signed by Mo Acosta > 07/25/20 [id number]
== END ==
LOC: M RAD 13:04
PROVIDERS: ATTEND Family Medicine
DX: N13.30 Unspecified hydronephrosis (principal); R39.89 Other symptoms and signs involving the genitourinary system; N20.0 Calculus of kidney

== ENCOUNTER → 2020-07-25 | Outpatient (REF) | payer MEDICARE, OTHER | LOC: M SFHCADAM 12:16 | PROVIDERS: ATTEND Family Medicine | DX: R39.89 Other symptoms and signs involving the genitourinary system (principal) ==

== ENCOUNTER → 2020-08-08 | Outpatient (REF) | payer OTHER, MEDICARE ==
[~2020-08-08] MED LIST changes: +CEPH500C PO
[2020-08-08 18:46] LABS: APPEARANCE, URINE CLOUDY (CLEAR); BACTERIA, URINE AUTO 2+ (NEGATIVE); BILIRUBIN, URINE AUTO NEGATIVE (NEGATIVE); BLOOD, URINE BLOOD 3+ (NEGATIVE); CALCIUM OXALATE CRYSTALS SMALL; COLOR, URINE AMBER (YELLOW); GLUCOSE, URINE (UA) AUTO NEGATIVE (NEGATIVE); KETONE, URINE AUTO TRACE mg/dL (NEGATIVE); LEUKOCYTE ESTERASE, URINE AUTO 3+ (NEGATIVE); MUCUS, URINE SMALL (NEGATIVE); NITRITE, URINE AUTO POSITIVE (NEGATIVE); PROTEIN, URINE AUTO 2+ mg/dL (NEGATIVE); RBC, URINE AUTO 90 /HPF (0-3); SPECIFIC GRAVITY URINE AUTO 1.019 (1.002-1.035); SQUAMOUS EPITHELIAL CELL UR AU 4 /HPF (0-6); UROBILINOGEN, URINE AUTO 0.2 mg/dL (0.0-2.0); WBC, URINE AUTO TNTC /HPF (0-3)
== END ==
LOC: M SMT 17:12
PROVIDERS: ATTEND Nurse Practitioner Women's Health
DX: N20.0 Calculus of kidney (principal)

== ENCOUNTER → 2020-08-28 | Outpatient (CLI) | payer MEDICARE, OTHER ==
[2020-08-28 16:30] LABS: HEMATOCRIT 41.2 % (42.0-52.0); HEMOGLOBIN 13.6 g/dl (13.5-17.5); MEAN CORPUSCULAR HEMOGLOBIN 30.2 pg (27.0-33.0); MEAN CORPUSCULAR VOLUME 91.4 fl (80.0-96.0); PLATELET COUNT, AUTOMATED 301 10^3/uL (150-450); RED BLOOD COUNT 4.51 10^6/uL (4.30-6.10); WHITE BLOOD COUNT 10.4 10^3/uL (4.0-10.0)
[2020-08-28 16:41] LABS: INR 0.89; PARTIAL THROMBOPLASTIN TIME 33.1 SECONDS (24.2-38.5); PROTHROMBIN TIME 12.3 SECONDS (12.5-14.3)
[2020-08-28 16:50] LABS: BLOOD UREA NITROGEN 19 MG/DL (7-18); CARBON DIOXIDE LEVEL 28 MEQ/L (21-32); CHLORIDE LEVEL 108 MEQ/L (98-107); CREATININE FOR GFR 0.75 MG/DL (0.70-1.30); GLOMERULAR FILTRATION RATE > 60.0 (>56); GLUCOSE, FASTING 96 MG/DL (70-100); SODIUM LEVEL 140 MEQ/L (136-145)
--- NOTE | 2020-08-28 17:21 | REP ---
INDICATION: PREOP TESTING, KIDNEY STONE ON LEFT. COMPARISON: PA and lateral chest dated 08/15/2005. TECHNIQUE: Upright PA and lateral chest. FINDINGS: The lung sidhu are clear. Cardiac size is normal. The jorge, mediastinum and skeletal structures are unremarkable. IMPRESSION: Essentially negative PA and lateral chest. There is no interval change. <Electronically signed by Mo Chaudhari > 08/28/20 [id number]
== END ==
LOC: M WUC 14:07
PROVIDERS: ATTEND Nurse Practitioner Women's Health
DX: Z01.818 Encounter for other preprocedural examination (principal); N20.0 Calculus of kidney

== ENCOUNTER → 2020-09-03 | Outpatient (CLI) | payer OTHER, MEDICARE ==
[~2020-09-03] MED LIST changes: +BUDE3CAP PO; +CIPR-249 PO; +CLOB0.0526 TOP; +D31000TA2 PO; +DICY20TA3 PO; +HM V5000 PO; +MONT10TA10 PO; +PSEU30TA85 PO; +VITA500C19 PO
== END ==
LOC: M LABSMTC 10:08
PROVIDERS: ATTEND Anesthesiology
DX: Z01.812 Encounter for preprocedural laboratory examination (principal); Z20.822 Contact with and (suspected) exposure to COVID-19

== ENCOUNTER 2020-09-07 04:45 | Emergency (ER) | payer MEDICARE, OTHER ==
[~2020-09-07] VITALS: Ht 188 cm; Wt 100.0 kg
[~2020-09-07 04:45] MED LIST changes: -CIPR-249 PO
[2020-09-07 05:27] LABS: BASO # 0.1 10^3/uL (0.0-0.2); BASO % 0.7 % (0.0-1.0); EOS # 0.3 10^3/uL (0.0-0.5); EOS % 2.2 % (0.0-3.0); HEMATOCRIT 41.9 % (42.0-52.0); HEMOGLOBIN 13.6 g/dl (13.5-17.5); LYMPH # 4.3 10^3/uL (1.5-5.0); LYMPH % 33.9 % (24.0-44.0); MEAN CORPUSCULAR HEMOGLOBIN 30.1 pg (27.0-33.0); MEAN CORPUSCULAR HGB CONC 32.5 g/dl (32.0-36.5); MEAN CORPUSCULAR VOLUME 92.7 fl (80.0-96.0); MONO # 0.8 10^3/uL (0.0-0.8); MONO % 6.5 % (2.0-8.0); NEUTROPHILS % 56.1 % (36.0-66.0); PLATELET COUNT, AUTOMATED 247 10^3/uL (150-450); RED BLOOD COUNT 4.52 10^6/uL (4.30-6.10); WHITE BLOOD COUNT 12.6 10^3/uL (4.0-10.0)
[2020-09-07 05:58] LABS: ALBUMIN 3.7 GM/DL (3.2-5.2); ALT/SGPT 25 U/L (12-78); BILIRUBIN,DIRECT 0.1 MG/DL (0.0-0.2); BILIRUBIN,TOTAL 0.3 MG/DL (0.2-1.0); BLOOD UREA NITROGEN 18 MG/DL (7-18); CALCIUM LEVEL 8.9 MG/DL (8.5-10.1); CARBON DIOXIDE LEVEL 30 MEQ/L (21-32); CHLORIDE LEVEL 107 MEQ/L (98-107); CREATININE FOR GFR 0.86 MG/DL (0.70-1.30); GLOMERULAR FILTRATION RATE > 60.0 (>56); GLUCOSE, FASTING 101 MG/DL (70-100); LIPASE 64 U/L (73-393); POTASSIUM SERUM 4.1 MEQ/L (3.5-5.1); SODIUM LEVEL 141 MEQ/L (136-145); TOTAL PROTEIN 6.8 GM/DL (6.4-8.2)
[2020-09-07] MEDS ORDERED: ceFAZolin SOD 1 GM in D5W MINI-BAG PLUS 50 ML IV ONE (09:25)
[2020-09-07 10:30] VITALS: BP 115/69
[2020-09-07] MEDS ORDERED: CIPR-249 PO (10:35)
== END 2020-09-07 10:51 | disposition home or self-care (01) ==
LOC: M ED 04:45
DX: K75.1 Phlebitis of portal vein (principal); N20.1 Calculus of ureter; J45.909 Unspecified asthma, uncomplicated; K58.9 Irritable bowel syndrome, unspecified; N40.0 Benign prostatic hyperplasia without lower urinary tract symptoms; K52.9 Noninfective gastroenteritis and colitis, unspecified; Z87.442 Personal history of urinary calculi; Z79.899 Other long term (current) drug therapy
CPT/HCPCS: 80048; 80076; 81001; 83690; 85025; 87088; 87186; 96365; 99284; J0690

== ENCOUNTER 2020-09-08 09:15 | Day surgery (SDC) | payer OTHER, MEDICARE ==
[~2020-09-08] VITALS: Ht 188 cm; Wt 99.8 kg
[~2020-09-08 09:15] MED LIST changes: +CIPR-249 PO; +LR 1,000 ML IV ONE; +ceFAZolin SOD 2 GM in IV 1 EA IV ONE
[2020-09-08] MEDS ORDERED: ONDANSETRON 4MG/2ML VIAL As Ordered ONE ×2 (09:50→11:57)
[2020-09-08] MEDS ORDERED: dexameTHASONE 4 MG/ML 1ML VIAL (J1100 PER 1MG) As Ordered ONE (09:50)
[2020-09-08] MEDS ORDERED: propofoL 200 MG/20 ML VIAL As Ordered ONE (09:50)
[2020-09-08] MEDS ORDERED: LIDOCAINE 2% 100MG/5ML SDV (FOR ANES.) As Ordered ONE (09:50)
[2020-09-08] MEDS ORDERED: MIDAZOLAM INJ 2MG/2ML VIAL (J2250 PER 1MG) As Ordered ONE (09:51)
[2020-09-08] MEDS ORDERED: fentaNYL 100 MCG/2 ML INJECTION (J3010) As Ordered ONE ×3 (09:52→11:59)
[2020-09-08] MEDS ORDERED: CONRAY-60 60% 50ML VIAL (Q9961) As Ordered ONE (10:12)
--- NOTE | 2020-09-08 10:25 | ECGEPIP ---
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
--- NOTE | 2020-09-08 11:40 | REP ---
INDICATION: NEPHROLITHIASIS. COMPARISON: CT 07/25/2020. TECHNIQUE: Two C-arm views abdomen and pelvis performed. FINDINGS: There is placement of a left ureteral catheter, the proximal end is coiled in the left renal pelvis and the distal end is coiled in the urinary bladder. Contrast partially opacifies the left pelvocaliceal system. IMPRESSION: 9 seconds of fluoroscopy time was utilized. <Electronically signed by Mo Acosta > 09/08/20 [id number]
[2020-09-08] MEDS: fentaNYL 100 MCG/2 ML INJECTION (J3010) IV PRN ×4 (12:07→12:29)
[2020-09-08] MEDS: MEPERIDINE INJ 25 MG/ML VIAL (J2175) IV PRN ×2 (12:07→12:13)
[2020-09-08] MEDS ORDERED: MEPERIDINE INJ 25 MG/ML VIAL (J2175) As Ordered ONE (12:10)
[2020-09-08] MEDS ORDERED: LR 1,000 ML IV SCH (12:15)
[2020-09-08] MEDS ORDERED: ONDANSETRON 4MG/2ML VIAL IV PRN (12:15)
[2020-09-08] MEDS ORDERED: HYDROMORPHONE HCL 0.5 MG/ 0.5 ML SYRINGE (J1170 PER 1) IV PRN (12:15)
[2020-09-08] MEDS ORDERED: METOCLOPRAMIDE INJ 10MG/2ML VIAL (J2765 PER 1) IV ONE (12:15)
[2020-09-08] MEDS ORDERED: oxyCODONE 5MG TAB PO PRN (12:15)
[2020-09-08] MEDS ORDERED: PERCOCET 5MG/325MG TAB PO PRN (12:20)
[2020-09-08 13:25] VITALS: BP 133/73
--- NOTE | 2020-09-08 15:24 | RO ---
OPERATIVE NOTE DATE OF OPERATION: 09/08/2020 PREOPERATIVE DIAGNOSIS: Left kidney stone. POSTOPERATIVE DIAGNOSIS: Left kidney stone. PROCEDURE: Cystoscopy, left ureteroscopy with laser lithotripsy and basket extraction of stone, left retrograde pyelogram with intraop interpretation of images, left ureteral stent placement. SURGEON: Gustabo Gray MD ENT SURGEON: None. ANESTHESIA: General. OPERATIVE INDICATIONS: This is a 60-year-old male who was found to have an obstructing approximately 8 mm left ureteropelvic junction stone. He is brought to the operating room today for treatment. DESCRIPTION OF PROCEDURE: The patient was brought to the operating room and general anesthesia was induced. Prophylactic antibiotics were infused. He was placed in the dorsal lithotomy position and prepped and draped in usual sterile fashion. Rigid cystoscope was inserted into the urethral meatus and advanced into the bladder. Guidewire was advanced up the left collecting system. I then advanced a ureteral access sheath up the left collecting system. I then went up the access sheath with flexible ureteroscope and within the renal pelvis an 8 mm stone was seen. The stone was fragmented into smaller pieces using 272 micron laser fiber. All the fragments were then removed using a basket. Once satisfied all the fragments were removed a retrograde pyelogram was performed and was notable for mild left hydronephrosis with no extravasation. At this point I withdrew the ureteroscope along with the access sheath and no additional stones were seen inside the ureter. I utilized a guidewire to advance the 7-Maltese x 22-32 cm JJ ureteral stent up into the left collecting system. The wire was removed and there were adequate curls of the stent in left renal pelvis and in the bladder. The bladder was emptied of all fluids and this marked the conclusion of the procedure. I also made note of the patient's prostate and there was mild bilobar hyperplasia with mild outlet obstruction. The patient was taken out of the dorsal lithotomy position, awakened from anesthesia and transferred to recovery room in stable condition. ESTIMATED BLOOD LOSS: 5 mL. COMPLICATIONS: None. SPECIMEN: Kidney stone fragments. PLAN: The patient will follow up in urology clinic in a few weeks for stent removal. JAVIER
[2020-09-16 14:11] LABS: CA Oxalate Dihy 20 % (.); Ca Ox Monohydrate 80 % (.)
== END 2020-09-08 13:38 | disposition home or self-care (01) ==
LOC: M SDC 09:15
PROVIDERS: ATTEND Urology
DX: N20.0 Calculus of kidney (principal); E78.5 Hyperlipidemia, unspecified; K58.8 Other irritable bowel syndrome; K21.9 Gastro-esophageal reflux disease without esophagitis; L40.9 Psoriasis, unspecified; F41.9 Anxiety disorder, unspecified; F32.9 Major depressive disorder, single episode, unspecified; Z79.899 Other long term (current) drug therapy; J45.909 Unspecified asthma, uncomplicated; N40.0 Benign prostatic hyperplasia without lower urinary tract symptoms; Z79.51 Long term (current) use of inhaled steroids
CPT/HCPCS: 52356; 74420; 82365; 88300; 93005; C1769; C1894; C2617; J0690; J1100; J2175; J2250; J2405; J2765; J3010; Q9961

== ENCOUNTER → 2021-01-30 | Outpatient (CLI) | payer OTHER, MEDICARE ==
[~2021-01-30] MED LIST changes: +GASTROGRAFIN SOLUTION 30ML (Q9963) As Ordered ONE; +ISOVUE-370 76% 100ML VIAL As Ordered ONE; -LR 1,000 ML IV ONE; +OMEP40CA4; -OMEP40CA97; -PSEU30TA85 PO; +PSEU30TA86 PO; -ceFAZolin SOD 2 GM in IV 1 EA IV ONE
--- NOTE | 2021-01-30 23:34 | REP ---
INDICATION: ABN WEIGHT LOSS. COMPARISON: 07/25/2020 TECHNIQUE: Axial contrast-enhanced images from the lung bases to the pubic symphysis using oral and 100 cc Isovue 370 intravenous contrast material. Coronal and sagittal reformations obtained. This CT examination was performed using the following dose reduction techniques: Automated exposure control, adjustment of mA and/or kv according to the patient's size, and the use of iterative reconstruction technique. FINDINGS: Liver, spleen, pancreas, gallbladder, bilateral adrenal glands and right kidney are normal. Left kidney includes few small nonobstructing intrarenal calculi measuring up to roughly 3.5 mm. The enteric system including stomach, small, and large bowel appears relatively normal although subtle stranding in the right lower quadrant is nonspecific and essentially unchanged. No evidence for obstruction or definite acute inflammatory bowel process. Normal terminal ileum and appendix are identified in the right lower quadrant. Pelvis demonstrates normal bladder and age-appropriate prostate/seminal vesicles. No ascites. No free air. No intraperitoneal or retroperitoneal adenopathy. Abdominal aorta and vasculature appear normal. Musculoskeletal structures are intact and without acute osseous abnormality. IMPRESSION: No acute abdominopelvic pathology appreciated. Few small nonobstructing left intrarenal calculi. <Electronically signed by Jeffrey Rodriguez > 01/30/21 [id number]
== END ==
LOC: M RAD 08:57
PROVIDERS: ATTEND Internal Medicine Gastroenterology
DX: R63.4 Abnormal weight loss (principal)
CPT/HCPCS: 74177; Q9963; Q9967

== ENCOUNTER 2021-04-24 07:20 | Observation (INO) | payer MEDICARE, OTHER ==
[~2021-04-24] VITALS: Ht 185.4 cm; Wt 95.5 kg
[~2021-04-24 07:20] MED LIST changes: -CYMB60CA3 PO; +CYMB60CA4 PO; -FINA5TAB2; +FINA5TAB2 PO; -GABA800T4; +GABA800T4 PO; -GASTROGRAFIN SOLUTION 30ML (Q9963) As Ordered ONE; -HYDR-3719; +HYDR-3719 PO; -ISOVUE-370 76% 100ML VIAL As Ordered ONE; -MELO15TA28; +MELO15TA28 PO; -OMEP40CA4; +OMEP40CA4 PO; -ONDA8TAB10; +ONDA8TAB10 PO; -SIMV40TA20; +SIMV40TA20 PO; -VENTAER; +VENTAER INH; -VIAG100T; +VIAG100T PO
--- OUTSIDE RECORDS SUMMARY | 2021-04-24 07:27 | CCD ---
Author Author [facility] Organization [facility] Address Unknown Phone Unavailable Care Team Providers Care Product Safety Technical Assistant Name Role Phone MILAGROS BOWERS MD Unavailable Unavailable ELISSA, MILAGROS MEYER Unavailable Unavailable REINTERA, MILAGROS MEYER Unavailable Unavailable REINTERA, MILAGROS MEYER Unavailable Unavailable REINDL, MILAGROS MEYER Unavailable Unavailable REINDL, MILAGROS MEYER Unavailable Unavailable REINDL, MILAGROS MEYER Unavailable Unavailable ELISSA, MILAGROS MEYRE Unavailable Unavailable ELISSA, MILAGROS MEYER Unavailable Unavailable ELISSA, MILAGROS MEYER Unavailable Unavailable REINTERA, MILAGROS MEYER Unavailable Unavailable REINTERA, MILAGROS MEYER Unavailable Unavailable REINTERA, MILAGROS MEYER Unavailable Unavailable ELISSA, MILAGROS MEYER Unavailable Unavailable ELISSA, MILAGROS MEYER Unavailable Unavailable ELISSA, MILAGROS MEYER Unavailable Unavailable REINTERA, MILAGROS MEYER Unavailable Unavailable REINTERA, MILAGROS MEYER Unavailable Unavailable REINTERA, MILAGROS MEYER Unavailable Unavailable REINTERA, MILAGROS MEYER Unavailable Unavailable REINTERA, MILAGROS MEYER Unavailable Unavailable REINTERA, MILAGROS MEYER Unavailable Unavailable REINTERA, MILAGROS MEYER Unavailable Unavailable REINDLMILAGROS MD Unavailable Unavailable REINDLMILAGROS MD Unavailable Unavailable REINMILAGROS GARCES MD Unavailable Unavailable ELISSA, MILAGROS MEYER Unavailable Unavailable REINTERA, MILAGROS MEYER Unavailable Unavailable REINMILAGROS GARCES MD Unavailable Unavailable REINTERA, MILAGROS MEYER Unavailable Unavailable ELISSA, MILAGROS MEYER Unavailable Unavailable ELISSA, MILAGROS MEYER Unavailable Unavailable REINTERA, MILAGROS MEYER Unavailable Unavailable ELISSA, MILAGROS MEYER Unavailable Unavailable MILAGROS BOWERS MD Unavailable Unavailable MILAGROS BOWERS MD Unavailable Unavailable ELISSA, MILAGROS MEYER Unavailable Unavailable ELISSA, MILAGROS MEYER Unavailable Unavailable MILAGROS BOWERS MD Unavailable Unavailable MILAGROS BOWERS MD Unavailable Unavailable REINMILAGROS GARCES MD Unavailable Unavailable REINMILAGROS GARCES MD Unavailable Unavailable Mollison, W Roby MD Unavailable Unavailable Mollison, W Roby MD Unavailable Unavailable Mollison, W Roby MD Unavailable Unavailable Mollison, W Roby MD Unavailable Unavailable Mollison, W Roby MD Unavailable Unavailable Mollison, W Roby MD Unavailable Unavailable Mollison, W Roby MD Unavailable Unavailable Mollison, W Roby MD Unavailable Unavailable Mollison, W Roby MD Unavailable Unavailable Mollison, W Roby MD Unavailable Unavailable Mollison, W Roby MD Unavailable Unavailable Mollison, W Roby MD Unavailable Unavailable Mollison, W Roby MD Unavailable Unavailable Mollison, W Roby MD Unavailable Unavailable Mollison, W Roby MD Unavailable Unavailable Mollison, W Roby MD Unavailable Unavailable Mollison, W Roby MD Unavailable Unavailable Mollison, W Roby MD Unavailable Unavailable Mollison, W Roby MD Unavailable Unavailable Mollison, W Roby MD Unavailable Unavailable Mollison, W Roby MD Unavailable Unavailable Mollison, W Roby MD Unavailable Unavailable Mollison, W Roby MD Unavailable Unavailable Mollison, W Roby MD Unavailable Unavailable Mollison, W Roby MD Unavailable Unavailable Mollison, W Roby MD Unavailable Unavailable Mollison, W Roby MD Unavailable Unavailable Mollison, W Roby MD Unavailable Unavailable Mollison, W Roby MD Unavailable Unavailable Mollison, W Roby MD Unavailable Unavailable Re-disclosure Warning The records that you are about to access may contain information from federally-assisted alcohol or drug abuse programs. If such information is present, then the following federally mandated warning applies: This information has been disclosed to you from records protected by federal confidentiality rules (42 CFR part 2). The federal rules prohibit you from making any further disclosure of this information unless further disclosure is expressly permitted by the written consent of the person to whom it pertains or as otherwise permitted by 42 CFR part 2. A general authorization for the release of medical or other information is NOT sufficient for this purpose. The Federal rules restrict any use of the information to criminally investigate or prosecute any alcohol or drug abuse patient.The records that you are about to access may contain highly sensitive health information, the redisclosure of which is protected by Article 27-F of the [facility] Public Health law. If you continue you may have access to information: Regarding HIV / AIDS; Provided by facilities licensed or operated by the [facility] Office of Mental Health; or Provided by the [facility] Office for People With Developmental Disabilities. If such information is present, then the following [facility] mandated warning applies: This information has been disclosed to you from confidential records which are protected by state law. State law prohibits you from making any further disclosure of this information without the specific written consent of the person to whom it pertains, or as otherwise permitted by law. Any unauthorized further disclosure in violation of state law may result in a fine or penitentiary sentence or both. A general authorization for the release of medical or other information is NOT sufficient authorization for further disc losure. Family History Family Member Name Family Member Gender Family Member Status Date o f Status Description Data Source(s) Unknown Unknown Problem MEDENT ([facility]) Unknown Female Problem MEDENT ([facility]) Unknown Female Problem MEDENT ([facility]) Encounters Encounter Providers Location Date Indications Data Source(s ) [place] [address] [facility] [address] 03/30/2021 12:00:00 AM EDT [facility]1 ([facility]) Unknown [address] [facility] [place] [address] 02/09/2021 12:00:00 AM EDT [facility] [place] [place] [address] [facility] [place] [address] 02/06/2021 12:00:00 AM EDT eCW1 ([facility] [place]) Unknown [address] [facility] [place] [address] 01/05/2021 12:00:00 AM EDT eCW1 ([facility] [place]) Outpatient Attender: MILAGROS Siegel/Phan/[place]/Dallin garces 01/01/2021 01:00:00 PM EDT MEDENT ([facility]) [place] [address] [facility] [address] 12/26/2020 12:00:00 AM EDT [facility]CW1 [facility] [place] [address] [facility] [place] [address] 12/06/2020 12:00:00 AM EDT eCW1 ([facility]) [place] [address] [facility] [place] [address] 11/06/2020 12:00:00 AM EDT eCW1 ([facility]) Outpatient Attender: Roby Siegel/Phan/[place]/Re indl 11/02/2020 02:45:00 PM EDT MEDENT ([facility]) [place] [address] [facility] [address] 10/05/2020 12:00:00 AM EDT eCW1 ([facility] [place]) Unknown [address] [facility], [place] [address] 09/25/2020 12:00:00 AM EDT eCW1 ([facility] [place]) (Cysto1) Urology [address] [place] [address] 09/25/2020 12:00:00 AM EDT eCW1 ([facility] [place]) Unknown [address] [facility] [place] [address] 09/25/2020 12:00:00 AM EDT eCW1 ([facility] [place]) Unknown [address] [facility], [place] [address] 09/04/2020 12:00:00 AM EDT eCW1 ([facility] [place]) Unknown [address] [facility] [place] [address] 08/10/2020 12:00:00 AM EST eCW1 ([facility] [place]) Outpatient [address] [facility] Y [address] 08/08/2020 12:00:00 AM EST eCW1 ([facility] [place]) Unknown [address] [facility] [place] [address] 08/01/2020 12:00:00 AM EST eCW1 ([facility] [place]) Unknown [address] [facility] [place] [address] 07/31/2020 12:00:00 AM EST eCW1 ([facility] [place]) Outpatient [address] [facility] Y [address] 07/25/2020 12:00:00 AM EST eCW1 ([facility] [place]) Outpatient Attender: Roby Siegel/Phan/[place]/Re indl 07/24/2020 10:30:00 AM EST MEDENT ([facility]) [place] [address] [facility] [address] 07/24/2020 12:00:00 AM EST [facility]1 [facility]) [place] [address] [facility] [address] 06/30/2020 12:00:00 AM EST eCW1 ([facility]) Office Visit Attender: Roby Siegel/[place]/Re indl 05/31/2020 09:10:00 AM EST MEDENT ([facility]) Unknown [address] [facility] [address] 05/30/2020 12:00:00 AM EST eCW1 ([facility] [place]) Office Visit, Est Pt., Level 3 PC [address] [place] [address] 05/24/2020 12:00:00 AM EST eCW1 ([facility]) Office Visit Attender: Roby Siegel/Phan/[place]/Re indl 05/03/2020 10:10:00 AM EST MEDENT ([facility]) Unknown [address] [facility] [address] 05/01/2020 12:00:00 AM EST eCW1 ([facility]) Unknown [address] [facility] [address] 05/01/2020 12:00:00 AM EST eCW1 ([facility]) Outpatient Attender: Roby Siegel/Phan/[place]/Re indl 04/14/2020 08:40:00 AM EDT MEDENT ([facility]) Outpatient Attender: Roby Siegel/Phan/[place]/Re indl 03/28/2020 01:50:00 PM EDT MEDENT ([facility]) Unknown [address] [facility] [address] 03/28/2020 12:00:00 AM EDT eCW1 ([facility]) Outpatient Attender: Roby Siegel/Phan/[place]/Re indl 03/23/2020 01:40:00 PM EDT MEDENT ([facility] ) Office Visit Attender: Roby Plascencia/[place]/Re indl 03/16/2020 09:50:00 AM EDT MEDENT ([facility], ) Outpatient Attender: MILAGROS Siegel/Phan/[place]/Rein dl 03/07/2020 10:15:00 AM EDT MEDENT ([facility]) Office Visit Attender: Roby Siegel/Phan/[place]/Re indl 02/24/2020 09:50:00 AM EDT MEDENT ([facility]) Medications Medication Brand Name Start Date Product Form Dose Route Admi nistrative Instructions Pharmacy Instructions Status Indications Reaction Description Data Source(s) Acetaminophen 325 MG / Hydrocodone Bitartrate 10 MG Or al Tablet 10-325 mg HYDROCODONE/ACETAMINOPHEN 04/02/2021 12:00:00 AM EDT tablet 120 TAKE ONE TABLET BY MOUTH FOUR TIMES A DAY NEEDED MAXIMUM DAILY DOSE = 4 TAKE ONE TABLET BY MOUTH FOUR TIMES A DAY NEEDED MAXIMUM DAILY DOSE = 4 SOLD: 04/04/2021 [facility] Acetaminophen 325 MG / Hydrocodone Hill trate 10 MG Oral Tablet HYDROcodone- Acetaminophen 10-325 MG HYDROcodone-Acetaminophen 10-325 MG 03/30/2021 12:00:0 0 AM EDT active HYDROcodone-Aceta minophen 10-325 MG eCW1 ([facility]) Acetaminophen 325 MG / Hydrocodone Bitartrate 10 MG Or al Tablet 10-325 mg HYDROCODONE/ACETAMINOPHEN 03/03/2021 12:00:00 AM EDT tablet 120 TAKE ONE TABLET BY MOUTH EVERY 6 HOURS NEEDED MAXIMUM DAILY DOSE = 4 TAKE ONE TABLET BY MOUTH EVERY 6 HOURS NEEDED MAXIMUM DAILY DOSE = 4 SOLD: 03/06/2021 [facility] 60 ACTUAT Fluticasone propionate 0.25 MG /ACTUAT / salmeterol 0.05 MG/ACTUAT Dry Powder Inhaler [Advair] 250-50 mcg/dose FLUTICASONE PROPION/SALMETEROL 02/12/2021 12:00:00 AM EDT blister with device 60 I NHALE ONE PUFF BY MOUTH EVERY 12 HOURS INHALE ONE PUFF BY MOUTH EVERY 12 HOURS SOLD: 02/16/2021 [facility] 60 ACTUAT Fluticasone propionate 0.25 MG /ACTUAT / salmeterol 0.05 MG/ACTUAT Dry Powder Inhaler [Advair] 250-50 mcg/dose FLUTICASONE PROPION/SALMETEROL 02/12/2021 12:00:00 AM EDT blister with device 60 I NHALE ONE PUFF BY MOUTH EVERY 12 HOURS INHALE ONE PUFF BY MOUTH EVERY 12 HOURS SOLD: 03/27/2021 [facility] Acetaminophen 325 MG / Hydrocodone Hill trate 10 MG Oral Tablet HYDROcodone- Acetaminophen 10-325 MG HYDROcodone-Acetaminophen 10-325 MG 02/06/2021 12:00:0 0 AM EDT 1.0 {tablet_as_needed} active HYDROcodone-Acetaminophen 10- 325 MG eCW1 ([facility]) Acetaminophen 325 MG / Hydrocodone Hill trate 10 MG Oral Tablet HYDROcodone- Acetaminophen 10-325 MG HYDROcodone-Acetaminophen 10-325 MG 02/06/2021 12:00:0 0 AM EDT 1.0 {tablet_as_needed} active HYDROcodone-Acetaminophen 10- 325 MG eCW1 ([facility]) Acetaminophen 325 MG / Hydrocodone Bitartrate 10 MG Or al Tablet 10-325 mg HYDROCODONE/ACETAMINOPHEN 02/06/2021 12:00:00 AM EDT tablet 120 TAKE ONE TABLET BY MOUTH EVERY 6 HOURS NEEDED MAXIMUM DAILY DOSE = 4 TABLETS TAKE ONE TABLET BY MOUTH EVERY 6 HOURS NEEDED MAXIMUM DAILY DOSE = 4 TABLETS SOLD: 02/12/2021 [facility] Acetaminophen 325 MG / Hydrocodone Bitartrate 10 MG Or al Tablet 10-325 mg HYDROCODONE/ACETAMINOPHEN 01/10/2021 12:00:00 AM EDT tablet 120 TAKE ONE TABLET BY MOUTH EVERY 6 HOURS NEEDED MAXIMUM DAILY DOSE = 4 TABLETS TAKE ONE TABLET BY MOUTH EVERY 6 HOURS NEEDED MAXIMUM DAILY DOSE = 4 TABLETS SOLD: 01/14/2021 [facility] Acetaminophen 325 MG / Hydrocodone Hill trate 10 MG Oral Tablet HYDROcodone- Acetaminophen 10-325 MG HYDROcodone-Acetaminophen 10-325 MG 01/05/2021 12:00:0 0 AM EDT 1.0 {tablet_as_needed} active HYDROcodone-Acetaminophen 10- 325 MG eCW1 ([facility]) Acetaminophen 325 MG / Hydrocodone Bitartrate 10 MG Or al Tablet 10-325 mg HYDROCODONE/ACETAMINOPHEN 12/06/2020 12:00:00 AM EDT tablet 120 TAKE ONE TABLET BY MOUTH EVERY 6 HOURS MAXIMUM DAILY DOSE = 4 TABLETS TAKE ONE TABLET BY MOUTH EVERY 6 HOURS MAXIMUM DAILY DOSE = 4 TABLETS SOLD: 12/12/2020 [facility] Acetaminophen 325 MG / Hydrocodone Hill trate 10 MG Oral Tablet HYDROcodone- Acetaminophen 10-325 MG HYDROcodone-Acetaminophen 10-325 MG 12/06/2020 12:00:0 0 AM EDT 1.0 {tablet_as_needed} active HYDROcodone-Acetaminophen 10- 325 MG eCW1 ([facility]) Acetaminophen 325 MG / Hydrocodone Hill trate 10 MG Oral Tablet HYDROcodone- Acetaminophen 10-325 MG HYDROcodone-Acetaminophen 10-325 MG 12/06/2020 12:00:0 0 AM EDT 1.0 {tablet_as_needed} active HYDROcodone-Acetaminophen 10- 325 MG eCW1 ([facility]) Acetaminophen 325 MG / Hydrocodone Hill trate 10 MG Oral Tablet Hydrocodone- Acetaminophen 10-325 MG Hydrocodone-Acetaminophen 10-325 MG 11/06/2020 12:00:0 0 AM EDT 1.0 {tablet_as_needed} active eCW1 ([facility]) Acetaminophen 325 MG / Hydrocodone Bitartrate 10 MG Or al Tablet 10-325 mg HYDROCODONE/ACETAMINOPHEN 11/06/2020 12:00:00 AM EDT tablet 120 TAKE ONE TABLET BY MOUTH EVERY 6 HOURS NEEDED MAXIMUM DAILY DOSE = 4 TABLETS TAKE ONE TABLET BY MOUTH EVERY 6 HOURS NEEDED MAXIMUM DAILY DOSE = 4 TABLETS SOLD: 11/10/2020 [facility] Acetaminophen 325 MG / Hydrocodone Hill trate 10 MG Oral Tablet Hydrocodone- Acetaminophen 10-325 MG Hydrocodone-Acetaminophen 10-325 MG 10/05/2020 12:00:0 0 AM EDT 1.0 {tablet_as_needed} active Hydrocodone-Acetaminophen 10- 325 MG eCW1 ([facility]) Acetaminophen 325 MG / Hydrocodone Bitartrate 10 MG Or al Tablet 10-325 mg HYDROCODONE/ACETAMINOPHEN 10/05/2020 12:00:00 AM EDT tablet 120 TAKE ONE TABLET BY MOUTH EVERY 6 HOURS NEEDED MAXIMUM DAILY DOSE = FOUR TABLETS TAKE ONE TABLET BY MOUTH EVERY 6 HOURS NEEDED MAXIMUM DAILY DOSE = FOUR TABLETS SOLD: 10/09/2020 [facility] 500 mg 09/07/2020 12:00:00 AM EDT tablet 14 TAKE ONE TABLET BY MOUTH TWICE A DAY TAKE ONE TABLET BY MOUTH TWICE A DAY SOLD: 09/07/2020 [facility] Acetaminophen 325 MG / Hydrocodone Hill trate 10 MG Oral Tablet Hydrocodone- Acetaminophen 10-325 MG Hydrocodone-Acetaminophen 10-325 MG 09/05/2020 12:00:0 0 AM EDT 1.0 {tablet_as_needed} active Hydrocodone-Acetaminophen 10- 325 MG eCW1 ([facility]) 10-325 mg 09/05/2020 12:00:00 AM EDT tablet 120 TAKE ONE TABLET BY MOUTH EVERY 6 HOURS MAXIMUM DAILY DOSE = 4 TAKE ONE TABLET BY MOUTH EVERY 6 HOURS MAXIMUM DAILY DOSE = 4 SOLD: 09/06/2020 [facility] Acetaminophen 325 MG / Hydrocodone Hill trate 10 MG Oral Tablet Hydrocodone- Acetaminophen 10-325 MG Hydrocodone-Acetaminophen 10-325 MG 09/05/2020 12:00:0 0 AM EDT 1.0 {tablet_as_needed} active Hydrocodone-Acetaminophen 10- 325 MG eCW1 ([facility]) Acetaminophen 325 MG / Hydrocodone Hill trate 10 MG Oral Tablet Hydrocodone- Acetaminophen 10-325 MG Hydrocodone-Acetaminophen 10-325 MG 09/05/2020 12:00:0 0 AM EDT 1.0 {tablet_as_needed} active Hydrocodone-Acetaminophen 10- 325 MG eCW1 ([facility]) Acetaminophen 325 MG / Hydrocodone Hill trate 10 MG Oral Tablet Hydrocodone- Acetaminophen 10-325 MG Hydrocodone-Acetaminophen 10-325 MG 09/05/2020 12:00:0 0 AM EDT 1.0 {tablet_as_needed} active Hydrocodone-Acetaminophen 10- 325 MG eCW1 ([facility]) Sulfamethoxazole 800 MG / Trimethoprim 1 60 MG Oral Tablet [Bactrim] Bactrim DS 800-160 MG Bactrim DS 800-160 MG 08/10/2020 12:00:00 AM EST 1.0 {table t} active Bactrim DS 800-160 MG eCW1 ( [facility]) Sulfamethoxazole 800 MG / Trimethoprim 1 60 MG Oral Tablet [Bactrim] Bactrim DS 800-160 MG Bactrim DS 800-160 MG 08/10/2020 12:00:00 AM EST 1.0 {table t} active Bactrim DS 800-160 MG eCW1 ( [facility]) Sulfamethoxazole 800 MG / Trimethoprim 1 60 MG Oral Tablet [Bactrim] Bactrim DS 800-160 MG Bactrim DS 800-160 MG 08/10/2020 12:00:00 AM EST 1.0 {table t} active Bactrim DS 800-160 MG eCW1 ( [facility]) Sulfamethoxazole 800 MG / Trimethoprim 1 60 MG Oral Tablet [Bactrim] Bactrim DS 800-160 MG Bactrim DS 800-160 MG 08/10/2020 12:00:00 AM EST 1.0 {table t} active Bactrim DS 800-160 MG eCW1 ( [facility]) Sulfamethoxazole 800 MG / Trimethoprim 1 60 MG Oral Tablet [Bactrim] Bactrim DS 800-160 MG Bactrim DS 800-160 MG 08/10/2020 12:00:00 AM EST 1.0 {table t} active Bactrim DS 800-160 MG eCW1 ( [facility]) Sulfamethoxazole 800 MG / Trimethoprim 1 60 MG Oral Tablet [Bactrim] Bactrim DS 800-160 MG Bactrim DS 800-160 MG 08/10/2020 12:00:00 AM EST 1.0 {table t} active Bactrim DS 800-160 MG eCW1 ( [facility]) Sulfamethoxazole 800 MG / Trimethoprim 1 60 MG Oral Tablet [Bactrim] Bactrim DS 800-160 MG Bactrim DS 800-160 MG 08/10/2020 12:00:00 AM EST 1.0 {table t} active Bactrim DS 800-160 MG eCW1 ( [facility]) Sulfamethoxazole 800 MG / Trimethoprim 1 60 MG Oral Tablet [Bactrim] Bactrim DS 800-160 MG Bactrim DS 800-160 MG 08/10/2020 12:00:00 AM EST 1.0 {table t} active eCW1 ([facility]) Sulfamethoxazole 800 MG / Trimethoprim 1 60 MG Oral Tablet [Bactrim] Bactrim DS 800-160 MG Bactrim DS 800-160 MG 08/10/2020 12:00:00 AM EST 1.0 {table t} active Bactrim DS 800-160 MG eCW1 ( [facility]) 800-160 mg 08/10/2020 12:00:00 AM EST tablet 20 TAKE ONE TABLET BY MOUTH TWICE A DAY FOR 10 DAYS TAKE ONE TABLET BY MOUTH TWICE A DAY FOR 10 DAYS SOLD: 08/11/2020 [facility] Sulfamethoxazole 800 MG / Trimethoprim 1 60 MG Oral Tablet [Bactrim] Bactrim DS 800-160 MG Bactrim DS 800-160 MG 08/10/2020 12:00:00 AM EST 1.0 {table t} active Bactrim DS 800-160 MG eCW1 ( [facility]) Sulfamethoxazole 800 MG / Trimethoprim 1 60 MG Oral Tablet [Bactrim] Bactrim DS 800-160 MG Bactrim DS 800-160 MG 08/10/2020 12:00:00 AM EST 1.0 {table t} active Bactrim DS 800-160 MG eCW1 ( [facility]) Sulfamethoxazole 800 MG / Trimethoprim 1 60 MG Oral Tablet [Bactrim] Bactrim DS 800-160 MG Bactrim DS 800-160 MG 08/10/2020 12:00:00 AM EST 1.0 {table t} active Bactrim DS 800-160 MG eCW1 ( [facility]) Sulfamethoxazole 800 MG / Trimethoprim 1 60 MG Oral Tablet [Bactrim] Bactrim DS 800-160 MG Bactrim DS 800-160 MG 08/10/2020 12:00:00 AM EST 1.0 {table t} active Bactrim DS 800-160 MG eCW1 ( [facility]) Sulfamethoxazole 800 MG / Trimethoprim 1 60 MG Oral Tablet [Bactrim] Bactrim DS 800-160 MG Bactrim DS 800-160 MG 08/10/2020 12:00:00 AM EST 1.0 {table t} active Bactrim DS 800-160 MG eCW1 ( [facility]) Acetaminophen 325 MG / Hydrocodone Hill trate 10 MG Oral Tablet Hydrocodone- Acetaminophen 10-325 MG Hydrocodone-Acetaminophen 10-325 MG 08/01/2020 12:00:0 0 AM EST 1.0 {tablet_as_needed} active Hydrocodone-Acetaminophen 10- 325 MG eCW1 ([facility]) Acetaminophen 325 MG / Hydrocodone Hill trate 10 MG Oral Tablet Hydrocodone- Acetaminophen 10-325 MG Hydrocodone-Acetaminophen 10-325 MG 08/01/2020 12:00:0 0 AM EST 1.0 {tablet_as_needed} active Hydrocodone-Acetaminophen 10- 325 MG eCW1 ([facility]) Acetaminophen 325 MG / Hydrocodone Bitartrate 10 MG Or al Tablet 10-325 mg HYDROCODONE BITARTRATE/ACETAMINOPHEN 08/01/2020 12:00:00 AM EST tablet 120 TAKE ONE TABLET BY MOUTH EVERY 6 HOURS NEEDED MAXIMUM DAILY DOSE = 4 TABLETS TAKE ONE TABLET BY MOUTH EVERY 6 HOURS NEEDED MAXIMUM DAILY DOSE = 4 TABLETS SOLD: 08/03/2020 [facility] Acetaminophen 325 MG / Hydrocodone Hill trate 10 MG Oral Tablet Hydrocodone- Acetaminophen 10-325 MG Hydrocodone-Acetaminophen 10-325 MG 08/01/2020 12:00:0 0 AM EST 1.0 {tablet_as_needed} active Hydrocodone-Acetaminophen 10- 325 MG eCW1 ([facility]) Acetaminophen 325 MG / Hydrocodone Hill trate 10 MG Oral Tablet Hydrocodone- Acetaminophen 10-325 MG Hydrocodone-Acetaminophen 10-325 MG 08/01/2020 12:00:0 0 AM EST 1.0 {tablet_as_needed} active Hydrocodone-Acetaminophen 10- 325 MG eCW1 ([facility]) Acetaminophen 325 MG / Hydrocodone Hill trate 10 MG Oral Tablet Hydrocodone- Acetaminophen 10-325 MG Hydrocodone-Acetaminophen 10-325 MG 08/01/2020 12:00:0 0 AM EST 1.0 {tablet_as_needed} active Hydrocodone-Acetaminophen 10- 325 MG eCW1 ([facility]) 500 mg 07/26/2020 12:00:00 AM EST tablet 14 TAKE ONE TABLET BY MOUTH TWICE A DAY FOR 7 DAYS TAKE ONE TABLET BY MOUTH TWICE A DAY FOR 7 DAYS SOLD: 07/26/2020 [facility] Cephalexin 500 MG Oral Capsule CEPHALEXIN 07/26/2020 12:00:00 AM EST capsule 14 TAKE ONE CAPSULE BY MOUTH TWICE A DAY TAKE ONE CAPSULE BY [facility] TWICE A DAY SOLD: 07/26/2020 [facility] famciclovir 500 MG Oral Tablet Famciclovir 500 MG Famciclovi r 500 MG 07/25/2020 12:00:00 AM EST 1.0 {tablet} suspended Famciclovir 500 MG eCW1 ([facility]) famciclovir 500 MG Oral Tablet Famciclovir 500 MG Famciclovi r 500 MG 07/25/2020 12:00:00 AM EST 1.0 {tablet} suspended Famciclovir 500 MG eCW1 ([facility]) famciclovir 500 MG Oral Tablet Famciclovir 500 MG Famciclovi r 500 MG 07/25/2020 12:00:00 AM EST 1.0 {tablet} suspended Famciclovir 500 MG eCW1 ([facility]) famciclovir 500 MG Oral Tablet Famciclovir 500 MG Famciclovi r 500 MG 07/25/2020 12:00:00 AM EST 1.0 {tablet} suspended Famciclovir 500 MG eCW1 ([facility]) famciclovir 500 MG Oral Tablet Famciclovir 500 MG Famciclovi r 500 MG 07/25/2020 12:00:00 AM EST 1.0 {tablet} suspended Famciclovir 500 MG eCW1 ([facility]) famciclovir 500 MG Oral Tablet Famciclovir 500 MG Famciclovi r 500 MG 07/25/2020 12:00:00 AM EST 1.0 {tablet} suspended Famciclovir 500 MG eCW1 ([facility]) famciclovir 500 MG Oral Tablet Famciclovir 500 MG Famciclovi r 500 MG 07/25/2020 12:00:00 AM EST 1.0 {tablet} active Fa mciclovir 500 MG eCW1 ([facility]) famciclovir 500 MG Oral Tablet Famciclovir 500 MG Famciclovi r 500 MG 07/25/2020 12:00:00 AM EST 1.0 {tablet} suspended Famciclovir 500 MG eCW1 ([facility]) famciclovir 500 MG Oral Tablet Famciclovir 500 MG Famciclovi r 500 MG 07/25/2020 12:00:00 AM EST 1.0 {tablet} suspended Famciclovir 500 MG eCW1 ([facility]) famciclovir 500 MG Oral Tablet Famciclovir 500 MG Famciclovi r 500 MG 07/25/2020 12:00:00 AM EST 1.0 {tablet} active Fa mciclovir 500 MG eCW1 ([facility]) famciclovir 500 MG Oral Tablet Famciclovir 500 MG Famciclovi r 500 MG 07/25/2020 12:00:00 AM EST 1.0 {tablet} suspended Famciclovir 500 MG eCW1 ([facility]) famciclovir 500 MG Oral Tablet Famciclovir 500 MG Famciclovi r 500 MG 07/25/2020 12:00:00 AM EST 1.0 {tablet} active Fa mciclovir 500 MG eCW1 ([facility]) famciclovir 500 MG Oral Tablet Famciclovir 500 MG Famciclovi r 500 MG 07/25/2020 12:00:00 AM EST 1.0 {tablet} suspended Famciclovir 500 MG eCW1 ([facility]) famciclovir 500 MG Oral Tablet Famciclovir 500 MG Famciclovi r 500 MG 07/25/2020 12:00:00 AM EST 1.0 {tablet} suspended Famciclovir 500 MG eCW1 ([facility]) famciclovir 500 MG Oral Tablet Famciclovir 500 MG Famciclovi r 500 MG 07/25/2020 12:00:00 AM EST 1.0 {tablet} suspended Famciclovir 500 MG eCW1 ([facility]) famciclovir 500 MG Oral Tablet Famciclovir 500 MG Famciclovi r 500 MG 07/25/2020 12:00:00 AM EST 1.0 {tablet} suspended eCW1 ([facility]) famciclovir 500 MG Oral Tablet Famciclovir 500 MG Famciclovi r 500 MG 07/25/2020 12:00:00 AM EST 1.0 {tablet} suspended Famciclovir 500 MG eCW1 ([facility]) 10-325 mg 06/30/2020 12:00:00 AM EST tablet 120 TAKE ONE TABLET BY MOUTH EVERY 6 HOURS MAXIMUM DAILY DOSE = FOUR TABLETS TAKE ONE TABLET BY MOUTH EVERY 6 HOURS MAXIMUM DAILY DOSE = FOUR TABLETS SOLD: 07/04/2020 [facility] Acetaminophen 325 MG / Hydrocodone Hill trate 10 MG Oral Tablet Hydrocodone- Acetaminophen 10-325 MG Hydrocodone-Acetaminophen 10-325 MG 06/30/2020 12:00:0 0 AM EST 1.0 {tablet_as_needed} active Hydrocodone-Acetaminophen 10- 325 MG eCW1 ([facility]) Acetaminophen 325 MG / Hydrocodone Hill trate 10 MG Oral Tablet Hydrocodone- Acetaminophen 10-325 MG Hydrocodone-Acetaminophen 10-325 MG 06/30/2020 12:00:0 0 AM EST 1.0 {tablet_as_needed} active Hydrocodone-Acetaminophen 10- 325 MG eCW1 ([facility]) Acetaminophen 325 MG / Hydrocodone Hill trate 10 MG Oral Tablet Hydrocodone- Acetaminophen 10-325 MG Hydrocodone-Acetaminophen 10-325 MG 06/30/2020 12:00:0 0 AM EST 1.0 {tablet_as_needed} active Hydrocodone-Acetaminophen 10- 325 MG eCW1 ([facility]) Budesonide 3 MG Delayed Release Oral Capsule Budesonide 06/21/2020 12:00:00 AM EST ORAL completed MEDENT ([facility], ) Budesonide 3 MG Delayed Release Oral Capsule Budesonide 06/21/2020 12:00:00 AM EST ORAL active MEDENT ([facility], ) 500 mg 05/30/2020 12:00:00 AM EST tablet 40 TAKE ONE TABLET BY MOUTH FOUR TIMES A DAY FOR 10 DAYS TAKE ONE TABLET BY MOUTH FOUR TIMES A DAY FOR 10 DAYS SOLD: 05/30/2020 [facility] Acetaminophen 325 MG / Hydrocodone Hill trate 10 MG Oral Tablet Hydrocodone- Acetaminophen 10-325 MG Hydrocodone-Acetaminophen 10-325 MG 05/30/2020 12:00:0 0 AM EST 1.0 {tablet_as_needed} active Hydrocodone-Acetaminophen 10- 325 MG eCW1 ([facility]) 0.12 % 05/30/2020 12:00:00 AM EST mouthwash 473 USE 15ML BY MOUTH TO SWISH FOR 30 SECONDS THEN SPIT OUT TWO TIMES A DAY AFTER BRUSHING TEETH USE 15ML BY MOUTH TO SWISH FOR 30 SECONDS THEN SPIT OUT TWO TIMES A DAY AFTER BRUSHING TEETH SOLD: 05/30/2020 [facility] 10-325 mg 05/30/2020 12:00:00 AM EST tablet 120 TAKE ONE TABLET BY MOUTH EVERY 6 HOURS NEEDED MAXIMUM DAILY DOSE = 4 TABLETS TAKE ONE TABLET BY MOUTH EVERY 6 HOURS NEEDED MAXIMUM DAILY DOSE = 4 TABLETS SOLD: 06/02/2020 [facility] 250-50 mcg/dose 05/25/2020 12:00:00 AM EST blister with marylou ce 60 INHALE ONE PUFF BY MOUTH EVERY 12 HOURS INHALE ONE PUFF BY MOUTH EVERY 12 HOURS SOLD: 05/30/2020 [facility] 250-50 mcg/dose 05/25/2020 12:00:00 AM EST blister with marylou ce 60 INHALE ONE PUFF BY MOUTH EVERY 12 HOURS INHALE ONE PUFF BY MOUTH EVERY 12 HOURS SOLD: 07/12/2020 [facility] 60 ACTUAT Fluticasone propionate 0.25 MG /ACTUAT / salmeterol 0.05 MG/ACTUAT Dry Powder Inhaler [Advair] 250-50 mcg/dose FLUTICASONE PROPION/SALMETEROL 05/25/2020 12:00:00 AM EST blister with device 60 I NHALE ONE PUFF BY MOUTH EVERY 12 HOURS INHALE ONE PUFF BY MOUTH EVERY 12 HOURS SOLD: 11/10/2020 [facility] 60 ACTUAT Fluticasone propionate 0.25 MG /ACTUAT / salmeterol 0.05 MG/ACTUAT Dry Powder Inhaler [Advair] 250-50 mcg/dose FLUTICASONE PROPION/SALMETEROL 05/25/2020 12:00:00 AM EST blister with device 60 I NHALE ONE PUFF BY MOUTH EVERY 12 HOURS INHALE ONE PUFF BY MOUTH EVERY 12 HOURS SOLD: 01/02/2021 [facility] 250-50 mcg/dose 05/25/2020 12:00:00 AM EST blister with marylou ce 60 INHALE ONE PUFF BY MOUTH EVERY 12 HOURS INHALE ONE PUFF BY MOUTH EVERY 12 HOURS SOLD: 08/17/2020 [facility] 60 ACTUAT Fluticasone propionate 0.25 MG /ACTUAT / salmeterol 0.05 MG/ACTUAT Dry Powder Inhaler [Advair] 250-50 mcg/dose FLUTICASONE PROPION/SALMETEROL 05/25/2020 12:00:00 AM EST blister with device 60 I NHALE ONE PUFF BY MOUTH EVERY 12 HOURS INHALE ONE PUFF BY MOUTH EVERY 12 HOURS SOLD: 09/28/2020 [facility] Acetaminophen 325 MG / Hydrocodone Hill trate 10 MG Oral Tablet Hydrocodone- Acetaminophen 10-325 MG Hydrocodone-Acetaminophen 10-325 MG 05/02/2020 12:00:0 0 AM EST 1.0 {tablet_as_needed} active Hydrocodone-Acetaminophen 10- 325 MG eCW1 ([facility]) 10-325 mg 05/02/2020 12:00:00 AM EST tablet 120 TAKE ONE TABLET BY MOUTH EVERY 6 HOURS MAXIMUM DAILY DOSE = FOUR TABLETS TAKE ONE TABLET BY MOUTH EVERY 6 HOURS MAXIMUM DAILY DOSE = FOUR TABLETS SOLD: 05/05/2020 [facility] Morphine Sulfate 15 MG Extended Release Oral Tablet [MS Cont in] MS Contin 04/20/2020 12:00:00 AM EST ORAL active MEDENT ([facility]) 5-325 mg 04/20/2020 12:00:00 AM EST tablet 30 TAKE ONE TO TWO TABLETS BY MOUTH EVERY 4 TO 6 HOURS NEEDED FOR POST SURGICAL PAIN MAXIMUM DAILY DOSE = EIGHT TABLETS TAKE ONE TO TWO TABLETS BY MOUTH EVERY 4 TO 6 HOURS NEEDED FOR POST SURGICAL PAIN MAXIMUM DAILY DOSE = EIGHT TABLETS SOLD: 04/21/2020 [facility] 15 mg 04/20/2020 12:00:00 AM EST tablet extended release 8 TAKE ONE TABLET BY MOUTH TWICE A DAY FOR 4 DAYS MAXIMUM DAILY DOSE = TWO TABLETS TAKE ONE TABLET BY MOUTH TWICE A DAY FOR 4 DAYS MAXIMUM DAILY DOSE = TWO TABLETS SOLD: 04/21/2020 [facility] Acetaminophen 325 MG / Oxycodone Hydrochloride 5 MG Or al Tablet Oxycodone-Acetaminophen 04/19/2020 12:00:00 AM EST ORAL active MEDENT ([facility] ) 10-325 mg 04/02/2020 12:00:00 AM EDT tablet 120 TAKE ONE TABLET BY MOUTH EVERY 6 HOURS MAXIMUM DAILY DOSE = 4 TAKE ONE TABLET BY MOUTH EVERY 6 HOURS MAXIMUM DAILY DOSE = 4 SOLD: 04/03/2020 [facility] Acetaminophen 325 MG / Hydrocodone Hill trate 10 MG Oral Tablet Hydrocodone- Acetaminophen 10-325 MG Hydrocodone-Acetaminophen 10-325 MG 03/29/2020 12:00:0 0 AM EDT 1.0 {tablet_as_needed} active Hydrocodone-Acetaminophen 10- 325 MG eCW1 ([facility]) Acetaminophen 325 MG / Hydrocodone Hill trate 10 MG Oral Tablet Hydrocodone- Acetaminophen 10-325 MG Hydrocodone-Acetaminophen 10-325 MG 03/29/2020 12:00:0 0 AM EDT 1.0 {tablet_as_needed} active Hydrocodone-Acetaminophen 10- 325 MG eCW1 ([facility]) 10-325 mg 03/02/2020 12:00:00 AM EDT tablet 120 TAKE ONE TABLET BY MOUTH FOUR TIMES A DAY NEEDED FOR PAIN MAXIMUM DAILY DOSE = 4 TAKE ONE TABLET BY MOUTH FOUR TIMES A DAY NEEDED FOR PAIN MAXIMUM DAILY DOSE = 4 SOLD: 03/03/2020 [facility] 250-50 mcg/dose 10/23/2019 12:00:00 AM EDT blister with marylou ce 60 INHALE ONE PUFF EVERY 12 HOURS INHALE ONE PUFF EVERY 12 HOURS SOLD: 03/18/2020 [facility] 250-50 mcg/dose 10/23/2019 12:00:00 AM EDT blister with marylou ce 60 INHALE ONE PUFF EVERY 12 HOURS INHALE ONE PUFF EVERY 12 HOURS SOLD: 04/25/2020 [facility] Insurance Providers Payer name Policy type / Coverage type Policy ID Covered green party ID Covered green party's relationship to delgado Policy Delgado Plan Information Medicare [place] [employer] Primary [id number] Self i/[facility] (pr) Commercial [id number] Family Dependent MEDICARE A [id number] Self [id number] A [employer] [id number] Self [id number] 564 MEDICARE [id number] V71 [facility] [id number] [facility] [id number] [address] [facility] [id number] ANSI-Medicare Part B [id number] ANSI-Commercial [id number] ANSI-Medicare Part B [id number] ANSI-Medicare Part B [id number] ANSI-Commercial [id number] ANSI-Commercial [id number] ANSI-Medicare Part B [id number] ANSI-Medicare Part B [id number] ANSI-Commercial [id number]-[id number] ANSI-Medicare Part B [id number] ANSI-Commercial [id number]-[id number] ANSI-Medicare Part B [id number] ANSI-Commercial [id number]-[id number] [id number] ANSI-Medicare Part B [id number] ANSI-Commercial [id number]-[id number] [facility] [id number] SP [id number] [address] [facility] [id number] SP [id number] 564 [facility]ANCE [id number] SP [id number] ANSI-Medicare Part B [id number] ANSI-Commercial [id number] vdbyn6jh-[id number]-qg90ips95r3u ANSI-Medicare Part B [id number] ANSI-Commercial [id number] ANSI-Medicare Part B [id number] ANSI-Commercial [id number]-jlpr-[id number]-ogkp-0481-[id number] ANSI-Medicare Part B [id number] ANSI-Commercial [id number]-i5cl-8fje-230s-[id number] 6f3qv719-k2ff-1jvp-564x-354pd1v10h5d ANSI-Medicare Part B [id number]-868o-bwct-[id number] ANSI-Commercial [id number]-5273-a5r5-p0xe34i3o145 1u68f809-541l-7176-i4e7-r3fo90s4g023 ANSI-Commercial p553b8z5-1iov-0u01-35w0-d1in814r790u u953y8k3-1dlf-3l96-44g9-h5zd657y583i ANSI-Medicare Part B [id number] ANSI-Medicare Part B [id number]-[id number] ANSI-Commercial 690g0672-w08f-527o-m471-70097r89w3gw 388g3690-i05n-304s-u490-16698m13q9ng ANSI-Commercial u46ny4tz-8247-2975-ok55-cw9p150rh30t q74xc8cz-2864-6528-my31-gz4t146fa29d ANSI-Medicare Part B [id number] ANSI-Medicare Part B [id number]-[id number]-[id number] ANSI-Commercial 9m977k50-7839-3y9y-wh79-0g1s13t37e0x 3d475n80-2849-9e9n-bs59-5w9c98x03x0x ANSI-Commercial n8021j9t-a054-55w2-3zu1-ch6h5lr56a25 c3622t4k-h382-70g4-6yu8-zn9d4wb24a05 ANSI-Medicare Part B [id number]-[id number] ANSI-Medicare Part B [id number]-saj7p19321js ANSI-Commercial 6u9g84c2-g6ci-4325-d6r8-k43599q9578h 9o0y57g8-m7io-6248-p4z4-u66269h0283s ANSI-Commercial [id number]-m331-m779992c66ef lq704889-57b6-3765-p389-b403226x39nz ANSI-Medicare Part B [id number] ANSI-Commercial 4p8u6597-0vrb-681c-459m-qj565oqpp64b 1t3i4804-7kid-254r-842j-io799ljfm10n ANSI-Medicare Part B [id number]-2539-dowj85yw975l ANSI-Medicare Part B [id number]-i34q81939qu5 ANSI-Commercial r8j4i227-7a76-49x9-4fsc-do4v6yp51h3j g1t9k034-6z09-38x6-1saz-re3x7eg71f3w ANSI-Medicare Part B [id number] ANSI-Commercial [id number]-5j47-i97116z2eu08 89469875-54a5-8w8b-0g52-s29898r1yg70 ANSI-Medicare Part B [id number] [id number]-22n5-0x2g-56w15z7l0d7v ANSI-Commercial x1vo7kp8-8530-84f9-[id number] w3yo8iw4-3064-38q4-t162-[id number] ANSI-Commercial 58fu9225-105e-8257-a4i6-25mii78914zf 92uf8178-274m-5099-s2n0-76akn46374mp ANSI-Medicare Part B [id number]-89vb-[id number] [facility] INS[facility]ANCE [id number] ANSI-Medicare Part B [id number]-[id number] ANSI-Commercial [id number]-o3e0-3v0c-qb50-0f0555u5i671 i5606y73-a6r2-8w0b-ka65-5u1279s3a604 ANSI-Medicare Part B [id number]-[id number] ANSI-Commercial 5k15j8tv-dtou-94h2-so3l-i05jty02qt34 6g38m5rb-lbvt-75y5-cp8k-b63zjx36ws27 ANSI-Medicare Part B [id number] [id number]-ae1b-9z8i1i4u7699 ANSI-Commercial 10fw44w0-g480-23kb-vomv-p7307613c91h 81wo90v8-y636-69ug-ssuj-o7313850b57s ANSI-Commercial r533ib5m-4327-68ey-1h0l-[id number] d686dp9l-4895-74yx-9e4h-[id number] ANSI-Medicare Part B [id number]-3wr0-[id number] ANSI-Medicare Part B [id number] ANSI-Commercial [id number]-[id number] [id number]-42z795m8yd83 ANSI-Medicare Part B [id number]-[id number] ANSI-Commercial [id number]-5v95-28r9-5o5t0dyvhks8 [id number]-5y45-38q1-1w0s0iqfzjg0 MEDICARE [id number] SP [id number] A [facility] Part B [id number] Self [id number] Medicare Natl Gov't Servi Medicare Primary [id number] Self [id number] MEDICARE C [id number] S [id number] A [employer] O [id number] P [id number] MEDICARE [id number] SP [id number] A MEDICARE C [id number] S [id number] A [facility] [id number] SP [id number] MEDICARE [id number] SP [id number] [facility] [id number] [facility] [id number] [id number] [address] [facility] O [id number] S [id number] MEDICARE C [id number] S [id number] ANSI-Commercial [id number]-[id number] Problems, Conditions, and Diagnoses Code Display Name Description Problem Type Effective Dates Data Source(s) N20.0 Kidney stone Kidney stone Problem 09/25/2020 12:00:00 A M EDT eCW1 ([facility]) N40.1 Benign prostatic hypertrophy with outflo w obstruction BPH loc w urin obs/LUTS Problem 09/25/2020 12:00:00 AM EDT eCW1 ([facility]) N20.0 Kidney stone Kidney stone on left side Problem 08/08/19 12:00:00 AM EST eCW1 ([facility]) N20.0 [id number] Renal stone Problem 07/25/2020 12:00:[address] eCW1 ([facility]) Z00.00 [id number] Medicare annual wellness visit, initial P roblem 05/24/2020 12:00:00 AM EST eCW1 ([facility]) Surgeries/Procedures Procedure Description Date Indications Data Source(s) OFFICE OUTPATIENT VISIT 25 MINUTES 01/01/2021 12:00:00 AM EDT MEDENT ([facility], ) OFFICE OUTPATIENT VISIT 10 MINUTES 11/02/2020 12:00:00 AM EDT MEDENT ([facility], ) Medication: Lidocaine HCl 2% Jelly 5mL Intravesically 09/25/2020 12:00:00 AM EDT eCW1 ([facility]) TOBACCO USE ASSESSED 09/25/2020 12:00:00 AM EDT eCW1 ([facility]) OFFICE OUTPATIENT VISIT 15 MINUTES 07/24/2020 12:00:00 AM EST MEDENT ([facility], ) SUTURE QUADRICEPS/HAMSTRING RUPTURE PRIMARY 04/21/2020 12:00:00 AM EST MEDENT ([facility], ) X-Ray Shoulder Complete 03/28/2020 12:00:00 AM EDT MEDENT ([facility] ) RADEX SHOULDER COMPLETE MINIMUM 2 VIEWS 03/28/2020 12: 00:00 AM EDT MEDENT ([facility]) RADIOLOGIC EXAMINATION KNEE 1/2 VIEWS 03/16/2020 12:00 :00 AM EDT MEDENT ([facility], ) RADIOLOGIC EXAMINATION KNEE 1/2 VIEWS 03/16/2020 12:00 :00 AM EDT MEDENT ([facility]) Physical Therapy Eval - Low Complexity 03/08/2020 12:0 0:00 AM EDT MEDENT ([facility]) Results ID Date Data Source [id number] 09/03/2020 11:00:00 AM EDT [facility] Name Value Range Interpretation Code Description Data Brooke rce(s) Supporting Document(s) SARS coronavirus 2 RNA Not Detected [facility] This lab was ordered by [facility] and reported by [facility]. ID Date Data Source URINE CULTURE 08/08/2020 12:00:00 AM EST eCW1 ([facility]) Name Value Range Interpretation Code Description Data Brooke rce(s) Supporting Document(s) URINE CULTURE eCW1 ([facility]) ID Date Data Source UA URINALYSIS 08/08/2020 12:00:00 AM EST eCW1 ([facility]) Name Value Range Interpretation Code Description Data Brooke rce(s) Supporting Document(s) UA URINALYSIS eCW1 ([facility]) ID Date Data Source [id number] 04/17/2020 12:00:00 PM EST [facility] Name Value Range Interpretation Code Description Data Brooke rce(s) Supporting Document(s) SARS coronavirus 2 RNA [facility] This lab was ordered by [facility] and reported by [facility]. ID Date Data Source [id number] 04/17/2020 10:33:00 AM EST MEDENT ([facility] ) Name Value Range Interpretation Code Description Data Brooke rce(s) Supporting Document(s) Laboratory test finding (navigational concept) Laboratory test result MEDENT ([facility], ) ID Date Data Source [id number] 04/12/2020 12:00:00 AM EDT [facility] ology Imaging Roby Miner MD Patient Name: TRES VALDES [facility] Date of : 1960Suite Date of Exam: 04/12/2020[place] [id number]#: Fax: [phone] EXAM: MRI KNEE LEFT WITHOUT CONTRASTCLINICAL INFORMATION: Acute trauma.3T multiplanar MRI imaging of the left knee was obtained using varioussequences.Comparison 01/11/2015. Since the last exam, the patient underwent some formof operative procedure. I do not have the operative report to review atthis time. STAT report requested due to the nature of the injury thepatient sustained recently.There is a complete tear of the quadriceps tendon which was retractedapproximately 2.2 cm from its patellar attachment. There is patchy Z5ydtlydkzgnm seen throughout the proximal patellar tendon withoutsignificant redundancy. There is T2 hypersignal seen in the patella withevidence of mature tunnel defects, likely from previous operative repairand representing a change from the prior exam.The anterior and posterior horns of the lateral meniscus are within normallimits. The anterior and posterior horns of the medial meniscus are withinnormal limits. The anterior and posterior cruciate ligaments are intact.T2 hypersignal is seen posterior to the fibers of the medial collateralligament which is intact. The lateral collateral ligament is intact butseen with some patchy T2 hypersignal within it. The medial and lateralpatellar retinacula are thickened and with T2 hypersignal within theirfibers, all of which represents a change from the prior exam. There islateral patellar subluxation. There is thinning and irregularity of thepatellar articular cartilage and the cartilaginous surface of the trochleargroove. Moderate thinning and irregularity is seen involving the medialand lateral compartmental articular cartilages. 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 There is acomplex joint effusion.IMPRESSION:1. Complete tear of the quadriceps tendon.2. Partial tear of the patellar tendon.3. Edema in the soft tissues posterior to an intact medial collateralligament.4. Evidence of lateral collateral lig amentous sprain.5. Tricompartmental chondromalacia.6. Joint effusion and complex Chowdhury's cyst as described above.7. Other findings as described above.Accredited by the [employer] in [place].Kay Fatima, RUBEN/Makenzie you for referring TRES VALDES to our office. Electronically Signed - KAY FATIMA DO 04/12/20 14:37 Name Value Range Interpretation Code Description Data Brooke rce(s) Supporting Document(s) Procedure Social History Code Duration Value Status Description Data Source(s ) Smoking 09/25/2020 12:00:00 AM EDT Former Smoker completed Former Smoker [email or web address] ([facility]) Smoking 09/25/2020 12:00:00 AM EDT Former Smoker completed Former Smoker [email or web address] ([facility]) Smoking 09/25/2020 12:00:00 AM EDT Former Smoker completed Former Smoker [email or web address] ([facility]) Smoking 09/25/2020 12:00:00 AM EDT Former Smoker completed Former Smoker [email or web address] ([facility]) Smoking 09/25/2020 12:00:00 AM EDT Former Smoker completed Former Smoker [email or web address] ([facility]) Smoking 09/25/2020 12:00:00 AM EDT Former Smoker completed Former Smoker [email or web address] ([facility]) Smoking 09/25/2020 12:00:00 AM EDT Former Smoker completed Former Smoker [email or web address] ([facility]) Smoking 09/25/2020 12:00:00 AM EDT Former Smoker completed Former Smoker [email or web address] ([facility]) Smoking 09/25/2020 12:00:00 AM EDT Former Smoker completed Former Smoker [email or web address] ([facility]) Smoking 09/25/2020 12:00:00 AM EDT Former Smoker completed Former Smoker [email or web address] ([facility]) Smoking 09/25/2020 12:00:00 AM EDT Former Smoker completed Former Smoker [email or web address] ([facility]) Smoking 08/08/2020 12:00:00 AM EST Former Smoker completed Former Smoker [email or web address] ([facility]) Smoking 08/08/2020 12:00:00 AM EST Former Smoker completed Former Smoker [email or web address] ([facility]) Smoking 08/08/2020 12:00:00 AM EST Former Smoker completed Former Smoker [email or web address] ([facility]) Smoking 07/25/2020 12:00:00 AM EST Former Smoker completed Former Smoker [email or web address] ([facility]) Smoking 07/25/2020 12:00:00 AM EST Former Smoker completed Former Smoker [email or web address] ([facility]) Smoking 07/25/2020 12:00:00 AM EST Former Smoker completed Former Smoker [email or web address] ([facility]) Smoking 05/24/2020 12:00:00 AM EST Former Smoker completed Former Smoker [email or web address] ([facility]) Smoking 05/24/2020 12:00:00 AM EST Former Smoker completed Former Smoker [email or web address] ([facility]) Smoking 05/24/2020 12:00:00 AM EST Former Smoker completed Former Smoker [email or web address] ([facility]) Smoking 05/24/2020 12:00:00 AM EST Former Smoker completed Former Smoker [email or web address] ([facility]) Vital Signs ID Date Data Source UNK Name Value Range Interpretation Code Description Data Source(s) Systolic blood pressure 122 mm[Hg] 122 mm[Hg] M DUARTE ([facility]) Diastolic blood pressure 78 mm[Hg] 78 mm[Hg] [facility] ([facility]) Body height 73 [in_i] 73 [in_i] [facility] ([facility]) 6'1" Body weight 209.00 [lb_av] 209.00 [lb_av] [facility] Body mass index (BMI) [Ratio] 27.6 kg/m2 27.6 k g/m2 [facility] ([facility]) Body surface area Derived from formula 2.19 m2 2.19 m2 [facility] ([facility]) [place] body weight 184 [lb_av] 184 [lb_av] [facility] ([facility]) Body weight 94.802 kg 94.802 kg [facility] ([facility]) Oxygen saturation in Arterial blood by Pulse oximetry 95 % 95 % [facility] ([facility]) Respiratory rate 16 /min 16 /min [facility] [facility] ( [facility]) Body temperature 99.3 [degF] 99.3 [degF] [facility] ([facility]) Body height 73 [in_i] 73 [in_i] [facility] ([facility]) 6'1" Body weight 214.50 [lb_av] 214.50 [lb_av] [facility] ([facility]) Body mass index (BMI) [Ratio] 28.3 kg/m2 28.3 k g/m2 [facility] ([facility]) [place] body weight 184 [lb_av] 184 [lb_av] [facility] ([facility]) Body weight 97.297 kg 97.297 kg [facility] ([facility]) Body surface area Derived from formula 2.22 m2 2.22 m2 [facility] ([facility]) Systolic blood pressure 140 mm[Hg] 140 mm[Hg] [facility] Diastolic blood pressure 86 mm[Hg] 86 mm[Hg] [facility] ([facility]) Heart rate 96 /min 96 /min [facility] ([facility]) Respiratory rate 16 /min 16 /min [facility] ( [facility]) Body temperature 99.3 [degF] 99.3 [degF] [facility] ([facility]) Oxygen saturation in Arterial blood by Pulse oximetry 95 % 95 % [facility] ([facility]) Body height 73 [in_i] 73 [in_i] [facility] ([facility]) 6'1" Body weight 214.50 [lb_av] 214.50 [lb_av] [facility] ([facility]) Body mass index (BMI) [Ratio] 28.3 kg/m2 28.3 k g/m2 [facility] ([facility]) [place] body weight 184 [lb_av] 184 [lb_av] [facility] ([facility]) Body weight 97.297 kg 97.297 kg [facility] ([facility]) Body surface area Derived from formula 2.22 m2 2.22 m2 [facility] Body weight 220 [lb_av] 220 [lb_av] eCW1 ([facility]) Body height 72 [in_i] 72 [in_i] eCW1 ([facility]) Body mass index (BMI) [Ratio] 29.83 kg/m2 29.83 kg/m2 eCW1 ([facility]) Heart rate 70 /min 70 /min eCW1 ([facility]) Respiratory rate 18 /min 18 /min eCW1 ([facility]) Systolic blood pressure 134 mm[Hg] 134 mm[Hg] e CW1 ([facility]) Diastolic blood pressure 90 mm[Hg] 90 mm[Hg] eCW1 ([facility]) Body height 72 [in_i] 72 [in_i] eCW1 ([facility]) Body mass index (BMI) [Ratio] 29.56 kg/m2 29.56 kg/m2 eCW1 ([facility]) Body weight 218 [lb_av] 218 [lb_av] eCW1 ([facility]) Heart rate 76 /min 76 /min eCW1 ([facility]) Respiratory rate 18 /min 18 /min eCW1 ([facility]) Systolic blood pressure 136 mm[Hg] 136 mm[Hg] e CW1 ([facility]) Diastolic blood pressure 80 mm[Hg] 80 mm[Hg] eCW1 ([facility]) Body weight 224 [lb_av] 224 [lb_av] eCW1 ([facility]) Body height 72 [in_i] 72 [in_i] eCW1 ([facility]) Body mass index (BMI) [Ratio] 30.38 kg/m2 30.38 kg/m2 eCW1 ([facility]) Heart rate 82 /min 82 /min eCW1 ([facility]) Respiratory rate 18 /min 18 /min eCW1 ([facility]) Body temperature 97.5 [degF] 97.5 [degF] eCW1 ( [facility]) Systolic blood pressure 136 mm[Hg] 136 mm[Hg] e CW1 ([facility]) Diastolic blood pressure 74 mm[Hg] 74 mm[Hg] eCW1 ([facility]) Body temperature 99.4 [degF] 99.4 [degF] [facility] ([facility], ) Body weight 224 [lb_av] 224 [lb_av] eCW1 ([facility]) Body height 72 [in_i] 72 [in_i] eCW1 ([facility]) Body mass index (BMI) [Ratio] 30.38 kg/m2 30.38 kg/m2 eCW1 ([facility]) Heart rate 82 /min 82 /min eCW1 ([facility]) Respiratory rate 18 /min 18 /min eCW1 ([facility]) Body temperature 97.0 [degF] 97.0 [degF] eCW1 ( [facility]) Systolic blood pressure 132 mm[Hg] 132 mm[Hg] e CW1 ([facility]) Diastolic blood pressure 74 mm[Hg] 74 mm[Hg] eCW1 ([facility]) Body temperature 97.8 [degF] 97.8 [degF] [facility] ([facility], ) Body weight 222.00 [lb_av] 222.00 [lb_av] [facility] ([facility], ) Body mass index (BMI) [Ratio] 29.3 kg/m2 29.3 k g/m2 [facility] ([facility], ) [place] body weight 184 [lb_av] 184 [lb_av] [facility] ([facility], ) Body weight 100.699 kg 100.699 kg [facility] ([facility], ) Body surface area Derived from formula 2.25 m2 2.25 m2 [facility] ([facility], ) Systolic blood pressure 120 mm[Hg] 120 mm[Hg] M EDENT ([facility], ) Diastolic blood pressure 78 mm[Hg] 78 mm[Hg] [facility] ([facility], ) Body height 73 [in_i] 73 [in_i] [facility] ([facility], ) 6'1" Patient Treatment Plan of Care Planned Activity Planned Date Details Description Data Source (s) Acetaminophen 325 MG / Hydrocodone Bitartrate 10 MG Or al Tablet 03/30/2021 12:00:00 AM EDT eCW1 (Count includes the [facility]) Acetaminophen 325 MG / Hydrocodone Bitartrate 10 MG Or al Tablet 02/06/2021 12:00:00 AM EDT eCW1 (Count includes the [facility]) Acetaminophen 325 MG / Hydrocodone Bitartrate 10 MG Or al Tablet 02/06/2021 12:00:00 AM EDT eCW1 (Count includes the [facility]) Acetaminophen 325 MG / Hydrocodone Bitartrate 10 MG Or al Tablet 01/05/2021 12:00:00 AM EDT eCW1 (Count includes the [facility]) Acetaminophen 325 MG / Hydrocodone Bitartrate 10 MG Or al Tablet 12/06/2020 12:00:00 AM EDT eCW1 (Count includes the [facility]) Acetaminophen 325 MG / Hydrocodone Bitartrate 10 MG Or al Tablet 12/06/2020 12:00:00 AM EDT eCW1 (Count includes the [facility]) Acetaminophen 325 MG / Hydrocodone Bitartrate 10 MG Or al Tablet 11/06/2020 12:00:00 AM EDT eCW1 (Count includes the [facility]) Acetaminophen 325 MG / Hydrocodone Bitartrate 10 MG Or al Tablet 10/05/2020 12:00:00 AM EDT eCW1 (Count includes the [facility]) Acetaminophen 325 MG / Hydrocodone Bitartrate 10 MG Or al Tablet 09/05/2020 12:00:00 AM EDT eCW1 (Count includes the [facility]) Sulfamethoxazole 800 MG / Trimethoprim 160 MG Oral Tab let [Bactrim] 08/10/2020 12:00:00 AM EST eCW1 (Count includes the [facility]) Sulfamethoxazole 800 MG / Trimethoprim 160 MG Oral Tab let [Bactrim] 08/10/2020 12:00:00 AM EST eCW1 (Count includes the [facility]) Sulfamethoxazole 800 MG / Trimethoprim 160 MG Oral Tab let [Bactrim] 08/10/2020 12:00:00 AM EST eCW1 (Count includes the [facility]) Acetaminophen 325 MG / Hydrocodone Bitartrate 10 MG Or al Tablet 08/01/2020 12:00:00 AM EST eCW1 (Count includes the [facility]) Acetaminophen 325 MG / Hydrocodone Bitartrate 10 MG Or al Tablet 08/01/2020 12:00:00 AM EST eCW1 (Count includes the [facility]) Acetaminophen 325 MG / Hydrocodone Bitartrate 10 MG Or al Tablet 08/01/2020 12:00:00 AM EST eCW1 (Count includes the [facility]) famciclovir 500 MG Oral Tablet 07/25/2020 12:00:00 AM EST eCW1 ([facility]) famciclovir 500 MG Oral Tablet 07/25/2020 12:00:00 AM EST eCW1 ([facility]) famciclovir 500 MG Oral Tablet 07/25/2020 12:00:00 AM EST eCW1 ([facility]) Acetaminophen 325 MG / Hydrocodone Bitartrate 10 MG Or al Tablet 06/30/2020 12:00:00 AM EST eCW1 (Count includes the [facility]) Acetaminophen 325 MG / Hydrocodone Bitartrate 10 MG Or al Tablet 06/30/2020 12:00:00 AM EST eCW1 (Count includes the [facility]) Acetaminophen 325 MG / Hydrocodone Bitartrate 10 MG Or al Tablet 06/30/2020 12:00:00 AM EST eCW1 (Count includes the [facility]) Acetaminophen 325 MG / Hydrocodone Bitartrate 10 MG Or al Tablet 05/30/2020 12:00:00 AM EST eCW1 (Count includes the [facility]) Acetaminophen 325 MG / Hydrocodone Bitartrate 10 MG Or al Tablet 05/02/2020 12:00:00 AM EST eCW1 (Count includes the [facility]) Acetaminophen 325 MG / Hydrocodone Bitartrate 10 MG Or al Tablet 03/29/2020 12:00:00 AM EDT eCW1 (Count includes the [facility]) Acetaminophen 325 MG / Hydrocodone Bitartrate 10 MG Or al Tablet 03/29/2020 12:00:00 AM EDT eCW1 (Count includes the [facility])
--- OUTSIDE RECORDS SUMMARY | 2021-04-24 07:27 | CCD ---
Author Author [facility] Organization [facility] Address Unknown Phone Unavailable Care Team Providers Care Mirror Silverer Name Role Phone Reji Damico Unavailable PROBLEMS Type Condition ICD9-CM Code [id number] Code Onset Dates Condition S tatus W/U Status Risk SNOMED Code Notes Problem Chronic pain due to injury G89.21 Active confirmed 154223340 Problem Degeneration, intervertebral disc, thoracolumbar M 51.35 Active confirmed 61455438 Problem Arthralgia of knee, right M25.561 Active confirmed 09815102 Problem Nausea with vomiting, unspecified R11.2 Active con firmed 89005775 Problem Discogenic cervical pain M54.2 Active confirmed 661835209 Problem Enlarged prostate without lower urinary tract symptoms N40.0 Active confirmed 973032518 Problem Other male erectile dysfunction N52.8 Active confi rmed 245686146 Problem Dyshidrotic eczema L30.1 Active confirmed 4 50236541 much better. Problem Rash and nonspecific skin eruption R21 Active co nfirmed 751239616 Problem Major depressive disorder, single episode, unspecified F32.9 Active confirmed 95038567 Problem Other asthma J45.998 Active confirmed 441363 001 Problem Vitamin B12 deficiency anemia, unspecified D51.9 Active confirmed 48109660 Problem Mixed hyperlipidemia E78.2 Active confirmed 328423156 Problem Acne rosacea, erythematous telangiectatic type L71 .8 Active confirmed 348904 probably longstandin g sun damage, possibly some liver damage with past hx of heavy drinking. Telangiectasia on ears make me think of some hematologic conditions like essential thrombocythemia as well. Problem Neoplasm of uncertain behavior of skin D48.5 A ctive confirmed 88281347 bleeding lesion on mid face, pearly with telangectasia makes likely a BCC but does have some features of a linette k (dilated pores) recommend bx today Problem Telangiectasia I78.1 Active confirmed 94672 9008 Problem Basal cell carcinoma of right cheek C44.319 Acti ve confirmed 787259647 Problem Contact dermatitis due to chemicals L25.3 Acti ve confirmed [id number] clearly [place]/M[place] are a factor in allergies . 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 Problem Chronic diarrhea K52.9 Active confirmed 236 789987 Problem Other obstructive and reflux uropathy N13.8 Ac tive confirmed 37745259 Problem BPH loc w urin obs/LUTS N40.1 Active confirmed 761076517 Problem Low back pain M54.5 Active confirmed 627856 007 Problem Kidney stone N20.0 Active confirmed 0929992 7 Problem Screening for prostate cancer Z12.5 Active confirm ed 729177096 Problem Gastro-esophageal reflux disease with esophagitis K21.0 Active confirmed 647502878 Problem Other chronic pain G89.29 Active confirmed 8 6475808 Problem Other microscopic colitis K52.838 Active confirmed 707526920 Problem Medicare annual wellness visit, initial Z00.00 Active confirmed 832968229 Problem Kidney stone on left side N20.0 Active confirmed 77896743 ALLERGIES No Known Allergies ENCOUNTERS from 1960 to 2021-02-07 Encounter Location Date Provider Diagnosis [facility] [address] [place] [address] Jan, Reji Damico IMMUNIZATIONS Vaccine Route Administration Date Status Pneumococcal Adult 0.5mL Pneumovax 23 IM Intramuscular May 11 013 Administered TDAP 0.5mL (Boostrix) IM Intramuscular May 11, 2013 Administe red Influenza 6mo & up Fluzone Unknown May 11, 2013 Admin istered SOCIAL HISTORY Tobacco Use: Social History Observation Description Date Details (start date - stop date) Former Smoker Sex Assigned At : Social History Observation Description Sex Assigned At Unknown Language: Question Answer Notes Languages spoken: [place] Baptist: Question Answer Notes Baptist No denominational beliefs that would impact health care. Sexual Hx: Question Answer Notes Had sex in the last 12 months (vaginal, oral, or anal)? Yes Have you ever had an STD? No with Women only Alcohol Screening: Question Answer Notes Did you have a drink containing alcohol in the past year? No Points 0 Interpretation Negative BMI Care Goal Follow-Up Question Answer Notes Above Normal BMI Follow-Up Dietary management educatio n, guidance, and counseling Tobacco Use: Question Answer Notes Are you a: former smoker How long has it been since you last smoked? 1-5 years 2016 REASON FOR REFERRAL No Information VITAL SIGNS No information MEDICATIONS Medication SIG (Take, Route, Frequency, Duration) Notes Start Da te End Date Status Montelukast Sodium 10 mg TAKE 1 TABLET DAILY Active Creon 01233 UNIT 3 caps Orally TID with meals for 90 day(s) Mar, Not-Taking Famciclovir 500 MG 1 tablet Orally Twice a day for 7 day(s) Jul, Not-Taking Ventolin HFA 90MCG USE 2 INHALATIONS FOUR TIMES A DAY NEEDED for 30 day(s) Active Doxycycline Hyclate 100 MG 1 tablet Orally Twice a day for 10 da y(s) Nov, Not-Taking Ondansetron HCl 8MG TAKE 1 TABLET EVERY 8 HOURS NEEDED (MAX D AILY DOSE: 3) Active Clobetasol Propionate 0.05 % APPLY 1 APPLICATION TO AF FECTED AREA TWICE A DAY EXTERNALLY Active Omeprazole 40 mg TAKE 1 CAPSULE TWICE A DAY Active Budesonide Active Fluticasone-Salmeterol 250-50 MCG/DOSE USE 1 INHALATION EVERY 12 HOUR S Active HYDROcodone-Acetaminophen 10-325 MG 1 tablet as needed Orally DO NOT FILL EARLY every 6 hrs, MDD 4 for 30 day(s) Jan, Active Meloxicam 15 MG TAKE 1 TABLET DAILY Active Viagra 100MG TAKE 1 TABLET DAILY NEEDED for 90 day(s) Not-Taking Flexeril 10 MG 1 tablet Orally 3 times a day as needed Active Gabapentin 800 MG TAKE 2 TABLETS TWICE A DAY Active Permethrin 5 % 1 application to affected ar ea Externally Once a day for 7 day(s) Nov, Not-Taking Flector 1.3 % 1 patch to skin Transdermal Twice a day as needed for 90 days Active DULoxetine HCl 60 mg TAKE 1 CAPSULE TWICE A DAY Active Halobetasol Propionate 0.05% 1 application to affected area on hands or feet Externally twice a day for 90 day(s) Active Tamsulosin HCl 0.4 mg TAKE 2 CAPSULES BEFORE BEDTIME Active Sucralfate 1 GM TAKE 1 TABLET BEFORE MEALS AND AT BEDTIME Not-Taking Sudafed 30 mg 1 tablet Orally Every 6 hours as needed Active Vitamin B-12 1000 MCG 1 tablet Orally Once a day Active Bactrim DS 800-160 MG 1 tablet Orally Twice a day for 10 day(s) Jul, Active Sildenafil Citrate 100 MG TAKE 1 TABLET DAILY NEEDED Active Advair Diskus 250-50 MCG/DOSE 1 puff Inhalation Every 12 hours for 30 days Active Simvastatin 40 mg TAKE 1 TABLET DAILY IN THE EVENING Active Finasteride 5 mg TAKE 1 TABLET DAILY Active Ventolin HFA 108 (90 Base) MCG/ACT USE 2 INHALATIONS FOUR TI MES A DAY NEEDED Active PROCEDURES No Information RESULTS No Results REASON FOR VISIT hydrocodone MEDICAL (GENERAL) HISTORY Type Description Date Medical History B knee OA 02/24 - mild degenerative ugarte es R>L Medical History IFG Medical History asthma Medical History hyperlipidemia Medical History nasal polyps Medical History psoriasis Medical History B12 deficiency Medical History chronic diarrhea 2008, nl st ool studies, nl colonoscopy; dx with microscopic colitis 03/04, followed by GI Medical History prostatitis with recurrent UTIs Medical History gastritis EGD 04/2011 Medical History ED Medical History 02/24 shoulder film, mild to mod arthriti c changes Medical History 02/24 NCS, 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 chronic L C5-6 radiculopathy, increased c/w 06/25. Medical History SALVADOR 04/28 FEV1 3.66 Medical History BPH Medical History microscopic colitis + bx 10/02 Surgical History [facility] - L wrist 2006 Surgical History No personal or FHx of severe reaction to anesthesia Surgical History colonoscopy 2008 Surgical History EGD (gastritis), colonoscopy (nl) 1 Surgical History wrist surgery 07/05/2011 Surgical History colonocopy (+ BX microscopic colitis) Surgical History quad reattatched x 2 03/2020 Surgical History cysto 09/2020 Hospitalization History R leg hematoma 2008 Goals Section No Information Health Concerns No Information MEDICAL EQUIPMENT No Information MENTAL STATUS No Information FUNCTIONAL STATUS No Information ASSESSMENTS No Information PLAN OF TREATMENT Medication Medication Name Sig Start Date Stop Date Simvastatin 40 mg TAKE 1 TABLET DAILY IN THE EVENING Finasteride 5 mg TAKE 1 TABLET DAILY Tamsulosin HCl 0.4 mg TAKE 2 CAPSULES BEFORE BEDTIME Montelukast Sodium 10 mg TAKE 1 TABLET DAILY HYDROcodone-Acetaminophen 10-325 MG 1 tablet as needed Orally DO NOT FILL EARLY every 6 hrs, MDD 4 for 30 day(s) Jan, Omeprazole 40 mg TAKE 1 CAPSULE TWICE A DAY Insurance Providers Payer Name Payer Address Payer Phone Insured Name Patient Relati onship to Insured Coverage Start Date Coverage End Date [facility] [address] [facility] [address] Migel Valdes MEDICARE Part A and B [address] [facility] [id number] TRES [place]
--- OUTSIDE RECORDS SUMMARY | 2021-04-24 07:27 | CCD ---
Author Author [facility] Organization [facility] Address Unknown Phone Unavailable Care Team Providers Care Marine Farmer Name Role Phone Reji Damico Unavailable PROBLEMS Type Condition ICD9-CM Code [id number] Code Onset Dates Condition S tatus W/U Status Risk SNOMED Code Notes Problem Chronic pain due to injury G89.21 Active confirmed 186842351 Problem Degeneration, intervertebral disc, thoracolumbar M 51.35 Active confirmed 00024187 Problem Arthralgia of knee, right M25.561 Active confirmed 75088206 Problem Nausea with vomiting, unspecified R11.2 Active con firmed 53718530 Problem Discogenic cervical pain M54.2 Active confirmed 051521489 Problem Enlarged prostate without lower urinary tract symptoms N40.0 Active confirmed 840737374 Problem Other male erectile dysfunction N52.8 Active confi rmed 371344807 Problem Dyshidrotic eczema L30.1 Active confirmed 4 85626182 much better. Problem Rash and nonspecific skin eruption R21 Active co nfirmed 156511887 Problem Major depressive disorder, single episode, unspecified F32.9 Active confirmed 86556582 Problem Other asthma J45.998 Active confirmed 503415 001 Problem Vitamin B12 deficiency anemia, unspecified D51.9 Active confirmed 43412977 Problem Mixed hyperlipidemia E78.2 Active confirmed 888375502 Problem Acne rosacea, erythematous telangiectatic type L71 .8 Active confirmed 535491 probably longstandin g sun damage, possibly some liver damage with past hx of heavy drinking. Telangiectasia on ears make me think of some hematologic conditions like essential thrombocythemia as well. Problem Neoplasm of uncertain behavior of skin D48.5 A ctive confirmed 79115940 bleeding lesion on mid face, pearly with telangectasia makes likely a BCC but does have some features of a linette k (dilated pores) recommend bx today Problem Telangiectasia I78.1 Active confirmed 92847 9008 Problem Basal cell carcinoma of right cheek C44.319 Acti ve confirmed 944445100 Problem Contact dermatitis due to chemicals L25.3 Acti ve confirmed 226590116919 clearly [place]/MCI are a factor in allergies . 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 Problem Chronic diarrhea K52.9 Active confirmed 236 736285 Problem Other obstructive and reflux uropathy N13.8 Ac tive confirmed 24116532 Problem BPH loc w urin obs/LUTS N40.1 Active confirmed 329581196 Problem Low back pain M54.5 Active confirmed 886234 007 Problem Kidney stone N20.0 Active confirmed 4527219 7 Problem Screening for prostate cancer Z12.5 Active confirm ed 143641773 Problem Gastro-esophageal reflux disease with esophagitis K21.0 Active confirmed 660600839 Problem Other chronic pain G89.29 Active confirmed 8 6246623 Problem Other microscopic colitis K52.838 Active confirmed 283761800 Problem Medicare annual wellness visit, initial Z00.00 Active confirmed 536040298 Problem Kidney stone on left side N20.0 Active confirmed 71963920 ALLERGIES No Known Allergies ENCOUNTERS from 1960 to 2021-03-30 Encounter Location Date Provider Diagnosis [facility] [address] [place] [address] Mar, 2021 Reji Damico IMMUNIZATIONS Vaccine Route Administration Date [...] Unknown Language: Question Answer Notes Languages spoken: [place] Jehovah'S Witness: Question Answer Notes Jehovah'S Witness No yazdanism beliefs that would impact health care. Sexual [...] Notes Start Da te End Date Status Vitamin B-12 1000 MCG 1 tablet Orally Once a day Active Ventolin HFA 90MCG USE 2 INHALATIONS FOUR TIMES A DAY NEEDED for 30 day(s) Active Permethrin 5 % 1 application to affected ar ea Externally Once a day for 7 day(s) Nov, Not-Taking Sucralfate 1 GM TAKE 1 TABLET BEFORE MEALS AND AT BEDTIME Not-Taking Montelukast Sodium 10 mg TAKE 1 TABLET DAILY Active Omeprazole 40 mg TAKE 1 CAPSULE TWICE A DAY Active Famciclovir 500 MG 1 tablet Orally Twice a day for 7 day(s) Jul, Not-Taking Creon 98639 UNIT 3 caps Orally TID with meals for 90 day(s) Mar, Not-Taking Budesonide Active Clobetasol Propionate 0.05 % APPLY 1 APPLICATION TO AF FECTED AREA TWICE A DAY EXTERNALLY Active Ondansetron HCl 8MG TAKE 1 TABLET EVERY 8 HOURS NEEDED (MAX D AILY DOSE: 3) Active Fluticasone-Salmeterol 250-50 MCG/DOSE USE 1 INHALATION EVERY 12 HOUR S Active HYDROcodone-Acetaminophen 10-325 MG 1 tab Orally four times daily as needed for 30 days Mar, Active Bactrim DS 800-160 MG 1 tablet Orally Twice a day for 10 day(s) Jul, Active Gabapentin 800 MG TAKE 2 TABLETS TWICE A DAY Active Viagra 100MG TAKE 1 TABLET DAILY NEEDED for 90 day(s) Not-Taking Tamsulosin HCl 0.4 mg TAKE 2 CAPSULES BEFORE BEDTIME Active DULoxetine HCl 60 mg TAKE 1 CAPSULE TWICE A DAY Active Flexeril 10 MG 1 tablet Orally 3 times a day as needed Active Doxycycline Hyclate 100 MG 1 tablet Orally Twice a day for 10 da y(s) Nov, Not-Taking Flector 1.3 % 1 patch to skin Transdermal Twice a day as needed for 90 days Active Sudafed 30 mg 1 tablet Orally Every 6 hours as needed Active Halobetasol Propionate 0.05% 1 application to affected area on hands or feet Externally twice a day for 90 day(s) Active Meloxicam 15 mg TAKE 1 TABLET DAILY NEEDED FOR PAIN Active Sildenafil Citrate 100 MG TAKE 1 [...] Information RESULTS No Results REASON FOR VISIT refill MEDICAL (GENERAL) HISTORY Type Description Date Medical History B knee OA 02/24 - mild degenerative ugarte es R>L Medical History IFG Medical History asthma Medical History hyperlipidemia Medical History nasal polyps Medical History psoriasis Medical History B12 deficiency Medical History chronic diarrhea 2008, nl st ool studies, & nl colonoscopy; dx with microscopic colitis 03/04, [...] Finasteride 5 mg TAKE 1 TABLET DAILY HYDROcodone-Acetaminophen 10-325 MG 1 tab Orally four times daily as needed for 30 days Mar, Meloxicam 15 mg TAKE 1 TABLET DAILY NEEDED FOR PAIN Tamsulosin HCl 0.4 mg TAKE 2 CAPSULES BEFORE BEDTIME Montelukast Sodium 10 mg TAKE 1 TABLET DAILY Fluticasone-Salmeterol 250-50 MCG/DOSE USE 1 INHALATION EVERY 12 HOURS Omeprazole 40 mg TAKE 1 CAPSULE TWICE A DAY Insurance Providers Payer Name Payer Address Payer Phone Insured Name Patient Relati onship to Insured Coverage Start Date Coverage End Date MEDICARE Part A and B [address] [facility] [id number] [phone] TRES VALDES [employer] [address] [facility] [id number] Migel Valdes
--- OUTSIDE RECORDS SUMMARY | 2021-04-24 07:27 | CCD ---
Author Author [facility] Organization [facility] Address Unknown Phone Unavailable Care Team Providers Care Patient Case Coordinator Name Role Phone Alessia Conte Unavailable PROBLEMS Type Condition ICD9-CM Code RPX14-CP Code Onset Dates Condition S tatus W/U Status Risk SNOMED Code Notes Problem Chronic pain due to injury G89.21 Active confirmed 185454238 Problem Degeneration, intervertebral disc, thoracolumbar M 51.35 Active confirmed 62880907 Problem Arthralgia of knee, right M25.561 Active confirmed 17636091 Problem Nausea with vomiting, unspecified R11.2 Active con firmed 30435565 Problem Discogenic cervical pain M54.2 Active confirmed 267252677 Problem Enlarged prostate without lower urinary tract symptoms N40.0 Active confirmed 707849205 Problem Other male erectile dysfunction N52.8 Active confi rmed 704293355 Problem Dyshidrotic eczema L30.1 Active confirmed 4 53877886 much better. Problem Rash and nonspecific skin eruption R21 Active co nfirmed 591173370 Problem Major depressive disorder, single episode, unspecified F32.9 Active confirmed 99684822 Problem Other asthma J45.998 Active confirmed 826002 001 Problem Vitamin B12 deficiency anemia, unspecified D51.9 Active confirmed 21479138 Problem Mixed hyperlipidemia E78.2 Active confirmed 686817071 Problem Acne rosacea, erythematous telangiectatic type L71 .8 Active confirmed 650635 probably longstandin g sun damage, possibly some liver damage with past hx of heavy drinking. Telangiectasia on ears make me think of some hematologic conditions like essential thrombocythemia as well. Problem Neoplasm of uncertain behavior of skin D48.5 A ctive confirmed 62151425 bleeding lesion on mid face, pearly with telangectasia makes likely a BCC but does have some features of a linette k (dilated pores) recommend bx today Problem Telangiectasia I78.1 Active confirmed 73615 9008 Problem Basal cell carcinoma of right cheek C44.319 Acti ve confirmed 746626952 Problem Contact dermatitis due to chemicals L25.3 Acti ve confirmed [id number] clearly [place]/MCI are a factor in allergies . 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 Problem Chronic diarrhea K52.9 Active confirmed 236 116075 Problem Other obstructive and reflux uropathy N13.8 Ac tive confirmed 75223076 Problem BPH loc w urin obs/LUTS N40.1 Active confirmed 802995622 Problem Low back pain M54.5 Active confirmed 055831 007 Problem Kidney stone N20.0 Active confirmed 3457515 7 Problem Screening for prostate cancer Z12.5 Active confirm ed 650420373 Problem Gastro-esophageal reflux disease with esophagitis K21.0 Active confirmed 331362870 Problem Other chronic pain G89.29 Active confirmed 8 8221509 Problem Other microscopic colitis K52.838 Active confirmed 383807767 Problem Medicare annual wellness visit, initial Z00.00 Active confirmed 531711182 Problem Kidney stone on left side N20.0 Active confirmed 45446836 ALLERGIES No Known Allergies ENCOUNTERS from 1960 to 2021-02-09 Encounter Location Date Provider Diagnosis [address] [place] [address] Jan, Alessiaflako Conte IMMUNIZATIONS Vaccine Route Administration Date Status Pneumococcal [...] Unknown Language: Question Answer Notes Languages spoken: Bulgarian Episcopal: Question Answer Notes Episcopal No scientologist beliefs that would impact health care. Sexual [...] day for 7 day(s) Jul, Not-Taking Creon 99799 UNIT 3 caps Orally TID with meals for 90 day(s) Mar, Not-Taking Doxycycline Hyclate 100 MG 1 tablet Orally Twice a day for 10 da y(s) Nov, Not-Taking HYDROcodone-Acetaminophen 10-325 MG 1 tablet as needed Orally DO NOT FILL EARLY every 6 hrs, MDD 4 for 30 day(s) Jan, Active Clobetasol Propionate 0.05 % APPLY 1 APPLICATION TO AF FECTED AREA TWICE A DAY EXTERNALLY Active Ondansetron HCl 8MG TAKE 1 TABLET EVERY 8 HOURS NEEDED (MAX D AILY DOSE: 3) Active Meloxicam 15 MG TAKE 1 TABLET DAILY Active Tamsulosin HCl 0.4 mg TAKE 2 CAPSULES BEFORE BEDTIME Active Budesonide Active Fluticasone-Salmeterol 250-50 MCG/DOSE USE 1 INHALATION EVERY 12 HOUR S Active Viagra 100MG TAKE 1 TABLET DAILY [...] TABLET BEFORE MEALS AND AT BEDTIME Not-Taking DULoxetine HCl 60 mg TAKE 1 CAPSULE TWICE A DAY Active Halobetasol Propionate 0.05% 1 application to affected area on hands or feet Externally twice a day for 90 day(s) Active Flector 1.3 % 1 patch to skin Transdermal Twice a day as needed for 90 days Active Ventolin HFA 90MCG USE 2 INHALATIONS FOUR TIMES A DAY NEEDED for 30 day(s) Active Sudafed 30 mg 1 tablet Orally [...] mg TAKE 1 CAPSULE TWICE A DAY Fluticasone-Salmeterol 250-50 MCG/DOSE USE 1 INHALATION EVERY 12 HOURS Insurance Providers Payer Name Payer Address Payer Phone Insured Name Patient Relati onship to Insured Coverage Start Date Coverage End Date [facility] [address] [facility] [id number] [address] Valdes MEDICARE Part A and B [address] [facility] [id number] [place]
[2021-04-24] MEDS ORDERED: ONDANSETRON 4MG/2ML VIAL IV ONE (07:55)
[2021-04-24] MEDS ORDERED: LIDOCAINE 2% MDV 20ML VIAL SC ONE (07:55)
[2021-04-24] MEDS ORDERED: ceFAZolin SOD 1 GM in D5W MINI-BAG PLUS 50 ML IV ONE (07:55)
[2021-04-24] MEDS ORDERED: LIDOCAINE W/EPINEPHRINE 1% 20ML VIAL SC ONE (07:55)
[2021-04-24] MEDS ORDERED: BOOSTRIX/ADACEL VACCINE (DIPHTH/PERTUSS/ACELL/TETANUS) 0.5ML SYR IM ONE (07:55)
[2021-04-24] MEDS ORDERED: MORPHINE 2 MG/ML 1ML VIAL (J2270) IV ONE (07:55)
[2021-04-24] MEDS: ADVAIR HFA 115/21MCG INHALER INH SCH ×2 (08:00→20:24)
--- OUTSIDE RECORDS SUMMARY | 2021-04-24 08:13 | CCD ---
Author Author [facility] Organization [facility] Address Unknown Phone Unavailable Care Team Providers Care Wire Spinner Name Role Phone MILAGROS BOWERS MD Unavailable Unavailable ELISSA, MILAGROS MEYER Unavailable Unavailable REINTERA, MILAGROS MEYER Unavailable Unavailable REINTERA, MILAGROS MEYER Unavailable Unavailable REINDL, MILAGROS MEYER Unavailable Unavailable REINDL, MILAGROS MEYER Unavailable Unavailable REINDL, MILAGROS MEYER Unavailable Unavailable ELISSA, MILAGROS MEYER [...] is protected by Article 27-F of the [facility] Public Health law. If you continue you may have access to information: Regarding HIV / AIDS; Provided by facilities licensed or operated by the [facility] Office of Mental Health; or Provided by the [facility] Office for People With Developmental Disabilities. If such information is present, then the following [facility] mandated warning applies: This information has been [...] law may result in a fine or intermediate sentence or both. A general authorization for the release of medical or other information is NOT sufficient authorization for further disc losure. Family History Family Member Name Family Member Gender Family Member Status Date o f Status Description Data Source(s) Unknown Unknown Problem MEDENT ([facility]) Unknown Female Problem MEDENT ([facility]) Unknown Female Problem MEDENT ([facility]) Encounters Encounter Providers Location Date Indications Data Source(s ) Unknown [address] [facility] [place] [address] 03/30/2021 12:00:00 AM EDT [facility] Unknown [address] [facility] [place] [address] 02/09/2021 12:00:00 AM EDT [facility] Unknown [address] [facility] [address] [place] [address] 02/06/2021 12:00:00 AM EDT eCW1 ([facility]) Unknown [address] [facility] [place] [address] 01/05/2021 12:00:00 AM EDT eCW1 ([facility]) Outpatient Attender: MILAGROS Siegel/Phan/[place]/Dallin garces 01/01/2021 01:00:00 PM EDT MEDENT ([facility]) Unknown [address] [facility] [place] [address] 12/26/2020 12:00:00 AM EDT [facility] [address] [facility] [place] [address] 12/06/2020 12:00:00 AM EDT eCW1 ([facility] Unknown [address] [facility] [place] [address] 11/06/2020 12:00:00 AM EDT eCW1 [facility] Outpatient Attender: Roby Siegel/Phan/[place]/Re indl 11/02/2020 02:45:00 PM EDT MEDENT ([facility]) Unknown [address] [facility] [place] [address] 10/05/2020 12:00:00 AM EDT eCW1 ([facility]) Unknown [address] [facility] [place] [address] 09/25/2020 12:00:00 AM EDT eCW1 ([facility]) (Cysto1) Urology [address] [place] [address] 09/25/2020 12:00:00 AM EDT eCW1 ([facility]) Unknown [address] [facility] [address] [address] 09/25/2020 12:00:00 AM EDT eCW1 ([facility]) Unknown [address] [facility] [place] [address] 09/04/2020 12:00:00 AM EDT eCW1 ([facility]) Unknown [address] [facility] [address] [address] 08/10/2020 12:00:00 AM EST eCW1 ([facility]) Outpatient [address] [facility] [address] [address] 08/08/2020 12:00:00 AM EST eCW1 ([facility]) Unknown [address] [facility] [address] [address] 08/01/2020 12:00:00 AM EST eCW1 ([facility]) Unknown [address] [facility] [address] [address] 07/31/2020 12:00:00 AM EST eCW1 ([facility]) Outpatient [address] [facility] [address] [address] 07/25/2020 12:00:00 AM EST eCW1 ([facility]) Outpatient Attender: Roby Siegel/Phan/[place]/Re indl 07/24/2020 10:30:00 AM EST MEDENT ([facility] Unknown [address] [facility] [place] [address] 07/24/2020 12:00:00 AM EST eCW1 ([facility] Unknown [address] [facility] [place] [address] 06/30/2020 12:00:00 AM EST eCW1 [facility] Office Visit Attender: Roby Siegel/[place]/Re indl 05/31/2020 09:10:00 AM EST MEDENT ([facility]) Unknown [address] [facility] [place] [address] 05/30/2020 12:00:00 AM EST eCW1 ([facility]) Office Visit, Est Pt., Level 3 PC [address] [place] [address] 05/24/2020 12:00:00 AM EST eCW1 ([facility]) Office Visit Attender: Roby Siegel/Phan/[place]/Re indl 05/03/2020 10:10:00 AM EST MEDENT ([facility]) Unknown [address] [facility] [place] [address] 05/01/2020 12:00:00 AM EST eCW1 ([facility] Unknown [address] [facility] [place] [address] 05/01/2020 12:00:00 AM EST eCW1 ([facility]) Outpatient Attender: Roby Siegel/Phan/[place]/Re indl 04/14/2020 08:40:00 AM EDT MEDENT ([facility]) Outpatient Attender: Roby Siegel/Phan/[place]/Re indl 03/28/2020 01:50:00 PM EDT MEDENT ([facility]) Unknown [address] [facility] [place] [address] 03/28/2020 12:00:00 AM EDT eCW1 ([facility]) Outpatient Attender: Roby Siegel/Phan/[place]/Re indl 03/23/2020 01:40:00 PM EDT MEDENT ([facility] ) Office Visit Attender: Roby Plascencia/[place]/Re indl 03/16/2020 09:50:00 AM EDT MEDENT ([facility], ) Outpatient Attender: MILAGROS Siegel/Phan/[place]/Rein dl 03/07/2020 10:15:00 AM EDT MEDENT ([facility]) Office Visit Attender: Roby Siegel/Phan/[place]/Re indl 02/24/2020 09:50:00 AM EDT MEDENT ([facility]) Medications Medication Brand Name Start Date Product [...] MAXIMUM DAILY DOSE = 4 SOLD: 04/04/2021 [facility] [employer] [facility] Acetaminophen 325 MG / Hydrocodone Hill trate 10 MG Oral Tablet HYDROcodone- Acetaminophen 10-325 MG HYDROcodone-Acetaminophen 10-325 MG 03/30/2021 12:00:0 0 AM EDT active HYDROcodone-Aceta minophen 10-325 MG eCW1 ([facility]) Acetaminophen 325 MG / Hydrocodone Bitartrate 10 MG Or al Tablet 10-325 mg HYDROCODONE/ACETAMINOPHEN 03/03/2021 12:00:00 AM EDT tablet 120 TAKE ONE TABLET BY MOUTH EVERY 6 HOURS NEEDED MAXIMUM DAILY DOSE = 4 TAKE ONE TABLET BY MOUTH EVERY 6 HOURS NEEDED MAXIMUM DAILY DOSE = 4 SOLD: 03/06/2021 [facility] 60 ACTUAT Fluticasone propionate 0.25 MG [...] {tablet_as_needed} active HYDROcodone-Acetaminophen 10- 325 MG eCW1 ([facility]) Acetaminophen 325 MG / Hydrocodone Hill trate 10 MG Oral Tablet HYDROcodone- Acetaminophen 10-325 MG HYDROcodone-Acetaminophen 10-325 MG 02/06/2021 12:00:0 0 AM EDT 1.0 {tablet_as_needed} active HYDROcodone-Acetaminophen 10- 325 MG eCW1 ([facility]) Acetaminophen 325 MG / Hydrocodone Bitartrate [...] {tablet_as_needed} active HYDROcodone-Acetaminophen 10- 325 MG eCW1 ([facility]) Acetaminophen 325 MG / Hydrocodone Bitartrate [...] {tablet_as_needed} active HYDROcodone-Acetaminophen 10- 325 MG eCW1 ([facility]) Acetaminophen 325 MG / Hydrocodone Hill trate 10 MG Oral Tablet HYDROcodone- Acetaminophen 10-325 MG HYDROcodone-Acetaminophen 10-325 MG 12/06/2020 12:00:0 0 AM EDT 1.0 {tablet_as_needed} active HYDROcodone-Acetaminophen 10- 325 MG eCW1 ([facility]) Acetaminophen 325 MG / Hydrocodone Hill trate 10 MG Oral Tablet Hydrocodone- Acetaminophen 10-325 MG Hydrocodone-Acetaminophen 10-325 MG 11/06/2020 12:00:0 0 AM EDT 1.0 {tablet_as_needed} active eCW1 ([facility]) Acetaminophen 325 MG / Hydrocodone Bitartrate [...] {tablet_as_needed} active Hydrocodone-Acetaminophen 10- 325 MG eCW1 ([facility]) Acetaminophen 325 MG / Hydrocodone Bitartrate [...] {tablet_as_needed} active Hydrocodone-Acetaminophen 10- 325 MG eCW1 ([facility]) 10-325 mg 09/05/2020 12:00:00 AM EDT tablet 120 TAKE ONE TABLET BY MOUTH EVERY 6 HOURS MAXIMUM DAILY DOSE = 4 TAKE ONE TABLET BY MOUTH EVERY 6 HOURS MAXIMUM DAILY DOSE = 4 SOLD: 09/06/2020 [facility] Acetaminophen 325 MG / Hydrocodone Hill trate 10 MG Oral Tablet Hydrocodone- Acetaminophen 10-325 MG Hydrocodone-Acetaminophen 10-325 MG 09/05/2020 12:00:0 0 AM EDT 1.0 {tablet_as_needed} active Hydrocodone-Acetaminophen 10- 325 MG eCW1 ([facility]) Acetaminophen 325 MG / Hydrocodone Hill trate 10 MG Oral Tablet Hydrocodone- Acetaminophen 10-325 MG Hydrocodone-Acetaminophen 10-325 MG 09/05/2020 12:00:0 0 AM EDT 1.0 {tablet_as_needed} active Hydrocodone-Acetaminophen 10- 325 MG eCW1 ([facility]) Acetaminophen 325 MG / Hydrocodone Hill trate 10 MG Oral Tablet Hydrocodone- Acetaminophen 10-325 MG Hydrocodone-Acetaminophen 10-325 MG 09/05/2020 12:00:0 0 AM EDT 1.0 {tablet_as_needed} active Hydrocodone-Acetaminophen 10- 325 MG eCW1 ([facility]) Sulfamethoxazole 800 MG / Trimethoprim 1 60 MG Oral Tablet [Bactrim] Bactrim DS 800-160 MG Bactrim DS 800-160 MG 08/10/2020 12:00:00 AM EST 1.0 {table t} active Bactrim DS 800-160 MG eCW1 ( [facility]) Sulfamethoxazole 800 MG / Trimethoprim 1 60 MG Oral Tablet [Bactrim] Bactrim DS 800-160 MG Bactrim DS 800-160 MG 08/10/2020 12:00:00 AM EST 1.0 {table t} active Bactrim DS 800-160 MG eCW1 ( [facility]) Sulfamethoxazole 800 MG / Trimethoprim 1 60 MG Oral Tablet [Bactrim] Bactrim DS 800-160 MG Bactrim DS 800-160 MG 08/10/2020 12:00:00 AM EST 1.0 {table t} active Bactrim DS 800-160 MG eCW1 ( [facility]) Sulfamethoxazole 800 MG / Trimethoprim 1 60 MG Oral Tablet [Bactrim] Bactrim DS 800-160 MG Bactrim DS 800-160 MG 08/10/2020 12:00:00 AM EST 1.0 {table t} active Bactrim DS 800-160 MG eCW1 ( [facility]) Sulfamethoxazole 800 MG / Trimethoprim 1 60 MG Oral Tablet [Bactrim] Bactrim DS 800-160 MG Bactrim DS 800-160 MG 08/10/2020 12:00:00 AM EST 1.0 {table t} active Bactrim DS 800-160 MG eCW1 ( [facility]) Sulfamethoxazole 800 MG / Trimethoprim 1 60 MG Oral Tablet [Bactrim] Bactrim DS 800-160 MG Bactrim DS 800-160 MG 08/10/2020 12:00:00 AM EST 1.0 {table t} active Bactrim DS 800-160 MG eCW1 ( [facility]) Sulfamethoxazole 800 MG / Trimethoprim 1 60 MG Oral Tablet [Bactrim] Bactrim DS 800-160 MG Bactrim DS 800-160 MG 08/10/2020 12:00:00 AM EST 1.0 {table t} active Bactrim DS 800-160 MG eCW1 ( [facility]) Sulfamethoxazole 800 MG / Trimethoprim 1 60 MG Oral Tablet [Bactrim] Bactrim DS 800-160 MG Bactrim DS 800-160 MG 08/10/2020 12:00:00 AM EST 1.0 {table t} active eCW1 ([facility]) Sulfamethoxazole 800 MG / Trimethoprim 1 60 MG Oral Tablet [Bactrim] Bactrim DS 800-160 MG Bactrim DS 800-160 MG 08/10/2020 12:00:00 AM EST 1.0 {table t} active Bactrim DS 800-160 MG eCW1 ( [facility]) 800-160 mg 08/10/2020 12:00:00 AM EST [...] active Bactrim DS 800-160 MG eCW1 ( [facility]) Sulfamethoxazole 800 MG / Trimethoprim 1 60 MG Oral Tablet [Bactrim] Bactrim DS 800-160 MG Bactrim DS 800-160 MG 08/10/2020 12:00:00 AM EST 1.0 {table t} active Bactrim DS 800-160 MG eCW1 ( [facility]) Sulfamethoxazole 800 MG / Trimethoprim 1 60 MG Oral Tablet [Bactrim] Bactrim DS 800-160 MG Bactrim DS 800-160 MG 08/10/2020 12:00:00 AM EST 1.0 {table t} active Bactrim DS 800-160 MG eCW1 ( [facility]) Sulfamethoxazole 800 MG / Trimethoprim 1 60 MG Oral Tablet [Bactrim] Bactrim DS 800-160 MG Bactrim DS 800-160 MG 08/10/2020 12:00:00 AM EST 1.0 {table t} active Bactrim DS 800-160 MG eCW1 ( [facility]) Sulfamethoxazole 800 MG / Trimethoprim 1 60 MG Oral Tablet [Bactrim] Bactrim DS 800-160 MG Bactrim DS 800-160 MG 08/10/2020 12:00:00 AM EST 1.0 {table t} active Bactrim DS 800-160 MG eCW1 ( [facility]) Acetaminophen 325 MG / Hydrocodone Hill trate 10 MG Oral Tablet Hydrocodone- Acetaminophen 10-325 MG Hydrocodone-Acetaminophen 10-325 MG 08/01/2020 12:00:0 0 AM EST 1.0 {tablet_as_needed} active Hydrocodone-Acetaminophen 10- 325 MG eCW1 ([facility]) Acetaminophen 325 MG / Hydrocodone Hill trate 10 MG Oral Tablet Hydrocodone- Acetaminophen 10-325 MG Hydrocodone-Acetaminophen 10-325 MG 08/01/2020 12:00:0 0 AM EST 1.0 {tablet_as_needed} active Hydrocodone-Acetaminophen 10- 325 MG eCW1 ([facility]) Acetaminophen 325 MG / Hydrocodone Bitartrate [...] {tablet_as_needed} active Hydrocodone-Acetaminophen 10- 325 MG eCW1 ([facility]) Acetaminophen 325 MG / Hydrocodone Hill trate 10 MG Oral Tablet Hydrocodone- Acetaminophen 10-325 MG Hydrocodone-Acetaminophen 10-325 MG 08/01/2020 12:00:0 0 AM EST 1.0 {tablet_as_needed} active Hydrocodone-Acetaminophen 10- 325 MG eCW1 ([facility]) Acetaminophen 325 MG / Hydrocodone Hill trate 10 MG Oral Tablet Hydrocodone- Acetaminophen 10-325 MG Hydrocodone-Acetaminophen 10-325 MG 08/01/2020 12:00:0 0 AM EST 1.0 {tablet_as_needed} active Hydrocodone-Acetaminophen 10- 325 MG eCW1 ([facility]) 500 mg 07/26/2020 12:00:00 AM EST tablet 14 TAKE ONE TABLET BY MOUTH TWICE A DAY FOR 7 DAYS TAKE ONE TABLET BY MOUTH TWICE A DAY FOR 7 DAYS SOLD: 07/26/2020 [employer] Cephalexin 500 MG Oral Capsule CEPHALEXIN 07/26/2020 12:00:00 AM EST capsule 14 TAKE ONE CAPSULE BY MOUTH TWICE A DAY TAKE ONE CAPSULE BY [facility] TWICE A DAY SOLD: 07/26/2020 [facility] famciclovir 500 MG Oral Tablet Famciclovir 500 MG Famciclovi r 500 MG 07/25/2020 12:00:00 AM EST 1.0 {tablet} suspended Famciclovir 500 MG eCW1 ([facility]) famciclovir 500 MG Oral Tablet Famciclovir 500 MG Famciclovi r 500 MG 07/25/2020 12:00:00 AM EST 1.0 {tablet} suspended Famciclovir 500 MG eCW1 ([facility]) famciclovir 500 MG Oral Tablet Famciclovir 500 MG Famciclovi r 500 MG 07/25/2020 12:00:00 AM EST 1.0 {tablet} suspended Famciclovir 500 MG eCW1 ([facility]) famciclovir 500 MG Oral Tablet Famciclovir 500 MG Famciclovi r 500 MG 07/25/2020 12:00:00 AM EST 1.0 {tablet} suspended Famciclovir 500 MG eCW1 ([facility]) famciclovir 500 MG Oral Tablet Famciclovir 500 MG Famciclovi r 500 MG 07/25/2020 12:00:00 AM EST 1.0 {tablet} suspended Famciclovir 500 MG eCW1 ([facility]) famciclovir 500 MG Oral Tablet Famciclovir 500 MG Famciclovi r 500 MG 07/25/2020 12:00:00 AM EST 1.0 {tablet} suspended Famciclovir 500 MG eCW1 ([facility]) famciclovir 500 MG Oral Tablet Famciclovir 500 MG Famciclovi r 500 MG 07/25/2020 12:00:00 AM EST 1.0 {tablet} active Fa mciclovir 500 MG eCW1 ([facility]) famciclovir 500 MG Oral Tablet Famciclovir 500 MG Famciclovi r 500 MG 07/25/2020 12:00:00 AM EST 1.0 {tablet} suspended Famciclovir 500 MG eCW1 ([facility]) famciclovir 500 MG Oral Tablet Famciclovir 500 MG Famciclovi r 500 MG 07/25/2020 12:00:00 AM EST 1.0 {tablet} suspended Famciclovir 500 MG eCW1 ([facility]) famciclovir 500 MG Oral Tablet Famciclovir 500 MG Famciclovi r 500 MG 07/25/2020 12:00:00 AM EST 1.0 {tablet} active Fa mciclovir 500 MG eCW1 ([facility]) famciclovir 500 MG Oral Tablet Famciclovir 500 MG Famciclovi r 500 MG 07/25/2020 12:00:00 AM EST 1.0 {tablet} suspended Famciclovir 500 MG eCW1 ([facility]) famciclovir 500 MG Oral Tablet Famciclovir 500 MG Famciclovi r 500 MG 07/25/2020 12:00:00 AM EST 1.0 {tablet} active Fa mciclovir 500 MG eCW1 ([facility]) famciclovir 500 MG Oral Tablet Famciclovir 500 MG Famciclovi r 500 MG 07/25/2020 12:00:00 AM EST 1.0 {tablet} suspended Famciclovir 500 MG eCW1 ([facility]) famciclovir 500 MG Oral Tablet Famciclovir 500 MG Famciclovi r 500 MG 07/25/2020 12:00:00 AM EST 1.0 {tablet} suspended Famciclovir 500 MG eCW1 ([facility]) famciclovir 500 MG Oral Tablet Famciclovir 500 MG Famciclovi r 500 MG 07/25/2020 12:00:00 AM EST 1.0 {tablet} suspended Famciclovir 500 MG eCW1 ([facility]) famciclovir 500 MG Oral Tablet Famciclovir 500 MG Famciclovi r 500 MG 07/25/2020 12:00:00 AM EST 1.0 {tablet} suspended eCW1 ([facility]) famciclovir 500 MG Oral Tablet Famciclovir 500 MG Famciclovi r 500 MG 07/25/2020 12:00:00 AM EST 1.0 {tablet} suspended Famciclovir 500 MG eCW1 ([facility]) 10-325 mg 06/30/2020 12:00:00 AM EST tablet 120 TAKE ONE TABLET BY MOUTH EVERY 6 HOURS MAXIMUM DAILY DOSE = FOUR TABLETS TAKE ONE TABLET BY MOUTH EVERY 6 HOURS MAXIMUM DAILY DOSE = FOUR TABLETS SOLD: 07/04/2020 [employer] Acetaminophen 325 MG / Hydrocodone Hill trate 10 MG Oral Tablet Hydrocodone- Acetaminophen 10-325 MG Hydrocodone-Acetaminophen 10-325 MG 06/30/2020 12:00:0 0 AM EST 1.0 {tablet_as_needed} active Hydrocodone-Acetaminophen 10- 325 MG eCW1 ([facility]) Acetaminophen 325 MG / Hydrocodone Hill trate 10 MG Oral Tablet Hydrocodone- Acetaminophen 10-325 MG Hydrocodone-Acetaminophen 10-325 MG 06/30/2020 12:00:0 0 AM EST 1.0 {tablet_as_needed} active Hydrocodone-Acetaminophen 10- 325 MG eCW1 ([facility]) Acetaminophen 325 MG / Hydrocodone Hill trate 10 MG Oral Tablet Hydrocodone- Acetaminophen 10-325 MG Hydrocodone-Acetaminophen 10-325 MG 06/30/2020 12:00:0 0 AM EST 1.0 {tablet_as_needed} active Hydrocodone-Acetaminophen 10- 325 MG eCW1 ([facility]) Budesonide 3 MG Delayed Release Oral Capsule Budesonide 06/21/2020 12:00:00 AM EST ORAL completed MEDENT ([facility] ) Budesonide 3 MG Delayed Release Oral Capsule Budesonide 06/21/2020 12:00:00 AM EST ORAL active MEDENT ([facility] ) 500 mg 05/30/2020 12:00:00 AM [...] {tablet_as_needed} active Hydrocodone-Acetaminophen 10- 325 MG eCW1 ([facility]) 0.12 % 05/30/2020 12:00:00 AM EST [...] {tablet_as_needed} active Hydrocodone-Acetaminophen 10- 325 MG eCW1 ([facility]) 10-325 mg 05/02/2020 12:00:00 AM EST tablet 120 TAKE ONE TABLET BY MOUTH EVERY 6 HOURS MAXIMUM DAILY DOSE = FOUR TABLETS TAKE ONE TABLET BY MOUTH EVERY 6 HOURS MAXIMUM DAILY DOSE = FOUR TABLETS SOLD: 05/05/2020 [employer] Morphine Sulfate 15 MG Extended Release Oral Tablet [MS Cont in] MS Contin 04/20/2020 12:00:00 AM EST ORAL active MEDENT ([facility]) 5-325 mg 04/20/2020 12:00:00 [...] 04/19/2020 12:00:00 AM EST ORAL active MEDENT ([facility] ) 10-325 mg 04/02/2020 12:00:00 AM EDT tablet 120 TAKE ONE TABLET BY MOUTH EVERY 6 HOURS MAXIMUM DAILY DOSE = 4 TAKE ONE TABLET BY MOUTH EVERY 6 HOURS MAXIMUM DAILY DOSE = 4 SOLD: 04/03/2020 [facility] Acetaminophen 325 MG / Hydrocodone Hill trate 10 MG Oral Tablet Hydrocodone- Acetaminophen 10-325 MG Hydrocodone-Acetaminophen 10-325 MG 03/29/2020 12:00:0 0 AM EDT 1.0 {tablet_as_needed} active Hydrocodone-Acetaminophen 10- 325 MG eCW1 ([facility]) Acetaminophen 325 MG / Hydrocodone Hill trate 10 MG Oral Tablet Hydrocodone- Acetaminophen 10-325 MG Hydrocodone-Acetaminophen 10-325 MG 03/29/2020 12:00:0 0 AM EDT 1.0 {tablet_as_needed} active Hydrocodone-Acetaminophen 10- 325 MG eCW1 ([facility]) 10-325 mg 03/02/2020 12:00:00 AM EDT [...] type / Coverage type Policy ID Covered republican ID Covered republican's relationship to delgado Policy [place]gado Plan Information Medicare [place] Primary [id number] Self i/[facility] (pr) Commercial [id number] Family Dependent MEDICARE A [id number] Self [id number] A fl3ur [id number] Self [id number] MEDICARE [id number] [facility] [id number] [facility] [id number] [address] [facility] [id number] ANSI-Medicare Part B [id number] ANSI-Commercial [id number] ANSI-Medicare Part B [id number] ANSI-Medicare Part B [id number] ANSI-Commercial [id number] ANSI-Commercial [id number] ANSI-Medicare Part B [id number] ANSI-Medicare Part B [id number] ANSI-Commercial [id number] ANSI-Medicare Part B [id number] ANSI-Commercial [id number] ANSI-Medicare Part B [id number] ANSI-Commercial [id number] ANSI-Medicare Part B [id number] ANSI-Commercial [id number] [facility] [id number] SP [id number] [address] [facility] [id number] SP [id number] 564 [facility] INSURANCE [id number] SP [id number] ANSI-Medicare Part B [id number] ANSI-Commercial [id number] ANSI-Medicare Part B [id number] ANSI-Commercial [id number] ANSI-Medicare Part B [id number] ANSI-Commercial [id number]-8831-u098-3d4k6519954e d5s685ur-rpmg-1089-n346-3o6z1636219l ANSI-Medicare Part B 6b0g7959-i26b-8736-4h70-b6m4231z1571 1f6o2802-y30h-9253-5t15-h9e1227t0825 ANSI-Commercial 4z5na308-h3nf-2dfj-215c-070ji7v59l8s 3y7ht374-l7oy-1htv-940c-014kv2z74v5y ANSI-Medicare Part B 499429l3-7mdn-474g-ovsn-54no05d4bh87 383785e4-1oux-917s-wlxa-04vw41p2ny76 ANSI-Commercial 8s44l657-843u-0377-t7r0-t0li80p9k470 9r17a677-182a-2648-d7b5-i4bg74w1r764 ANSI-Commercial k878h3q6-6scj-9o90-51b2-j4ih638u660w a008v7e3-7rxb-9a74-93e1-l2pg752g801c ANSI-Medicare Part B 702l4x10-0684-3g05-097w-5bnz8i210l44 531j5m98-4122-3z21-780f-0ioa9u808m00 ANSI-Medicare Part B 2s991z7t-9gn2-5955-7912-9e97878e55mg 4d995x3a-3tb5-4925-6725-0g66899s76op ANSI-Commercial 886k8823-w96o-222x-t137-59701d35x8jo 477p8671-r01q-398y-y649-17320e91w7kp ANSI-Commercial r53aw2wx-3965-7069-du64-mk3w520km62d u00fd3xm-0546-4850-rd35-bk3f491mi57x ANSI-Medicare Part B 4k369ijy-7[id number] 2c388rfv-1716-5571-53a2-7342c6260403 ANSI-Medicare Part B 9fg1175t-z97o-6me4-742a-l59975v44e22 5hc0767u-k95x-2zd9-381o-s50622f81c29 ANSI-Commercial 2l457r11-4883-3l7i-bn68-4p6z62x61w9x 7g039l23-5931-2s8s-zv42-5j6k11n68p6m ANSI-Commercial a1114l3s-z336-41s5-2dk8-wr2y9xe95z16 z3473t1g-a382-15n1-5yy1-lz8g8vw17z71 ANSI-Medicare Part B [id number]-yx60-0791-2c01-eal04x2194i0 k8f44107-ni46-9672-4y84-pkr72o6741x9 ANSI-Medicare Part B 9z0f27v6-49h0-5ov9-922s-bdz6s20520ux 9q7z34s4-43u1-6sg6-149x-avv2m79162ls ANSI-Commercial 3i8w97y3-z5mq-5924-l2c4-a93739h0531i 6z6y83e1-m2vj-8326-s7w3-x22522c7505t ANSI-Commercial hy758225-44w1-9603-z399-w595581y56sc dd367957-99q0-0674-d769-c373162c48jt ANSI-Medicare Part B [id number] ANSI-Commercial [id number] ANSI-Medicare Part B [id number] ANSI-Medicare Part B [id number] ANSI-Commercial [id number] ANSI-Medicare Part B [id number] ANSI-Commercial [id number] ANSI-Medicare Part B [id number] ANSI-Commercial [id number] ANSI-Commercial [id number] ANSI-Medicare Part B [id number] [facility] HEALTH INSURANCE [id number] ANSI-Medicare Part B [id number] ANSI-Commercial [id number] ANSI-Medicare Part B [id number] ANSI-Commercial [id number] ANSI-Medicare Part B [id number] ANSI-Commercial [id number] ANSI-Commercial [id number] ANSI-Medicare Part B [id number] ANSI-Medicare Part B [id number] ANSI-Commercial [id number] ANSI-Medicare Part B [id number] ANSI-Commercial [id number] MEDICARE [id number] SP [id number] A [facility] Part B [id number] Self [id number] Medicare Natl Gov't Servi Medicare Primary [id number] Self [id number] MEDICARE C [id number] S [id number] A [place] [employer] O [id number] P [id number] MEDICARE [id number] SP [id number] A MEDICARE C [id number] S [id number] A [facility] [id number] SP [id number] MEDICARE [id number] SP [id number] [facility] [id number] [facility] [id number] [facility] O [id number] S [id number] MEDICARE C [id number] S [id number] ANSI-Commercial [id number] Problems, Conditions, and Diagnoses Code Display Name Description Problem Type Effective Dates Data Source(s) N20.0 Kidney stone Kidney stone Problem 09/25/2020 12:00:00 A M EDT eCW1 ([facility]) N40.1 Benign prostatic hypertrophy with outflo w obstruction BPH loc w urin obs/LUTS Problem 09/25/2020 12:00:00 AM EDT eCW1 ([facility]) N20.0 Kidney stone Kidney stone on left side Problem 08/08/19 12:00:00 AM EST eCW1 ([facility]) N20.0 [id number] Renal stone Problem 07/25/2020 12:00:[address] eCW1 ([facility]) Z00.00 [id number] Medicare annual wellness visit, initial P roblem 05/24/2020 12:00:00 AM EST eCW1 ([facility]) Surgeries/Procedures Procedure Description Date Indications Data Source(s) OFFICE OUTPATIENT VISIT 25 MINUTES 01/01/2021 12:00:00 AM EDT MEDENT ([facility], ) OFFICE OUTPATIENT VISIT 10 MINUTES 11/02/2020 12:00:00 AM EDT MED[facility] ([facility], ) Medication: Lidocaine HCl 2% Jelly 5mL Intravesically 09/25/2020 12:00:00 AM EDT eCW1 (Formerly [facility], 1928–1983) TOBACCO USE ASSESSED 09/25/2020 12:00:00 AM EDT eCW1 ([facility]) OFFICE OUTPATIENT VISIT 15 MINUTES 07/24/2020 12:00:00 AM EST MEDENT ([facility], ) SUTURE QUADRICEPS/HAMSTRING RUPTURE PRIMARY 04/21/2020 12:00:00 AM EST MEDENT ([facility], ) X-Ray Shoulder Complete 03/28/2020 12:00:00 AM EDT MEDENT ([facility], ) RADEX SHOULDER COMPLETE MINIMUM 2 VIEWS 03/28/2020 12: 00:00 AM EDT MEDENT ([facility]) RADIOLOGIC EXAMINATION KNEE 1/2 VIEWS 03/16/2020 12:00 :00 AM EDT MEDENT ([facility], ) RADIOLOGIC EXAMINATION KNEE 1/2 VIEWS 03/16/2020 12:00 :00 AM EDT MEDENT ([facility]) Physical Therapy Eval - Low Complexity 03/08/2020 12:0 0:00 AM EDT MEDENT ([facility]) Results ID Date Data Source [id number] 09/03/2020 11:00:00 AM EDT [facility] Name Value Range Interpretation Code Description Data Brooke rce(s) Supporting Document(s) SARS coronavirus 2 RNA Not Detected [facility] [place] This lab was ordered by [facility] and reported by [facility]. ID Date Data Source URINE CULTURE 08/08/2020 12:00:00 AM EST eCW1 ([facility]) Name Value Range Interpretation Code Description Data Brooke rce(s) Supporting Document(s) URINE CULTURE eCW1 ([facility]) ID Date Data Source UA URINALYSIS 08/08/2020 12:00:00 AM EST eCW1 ([facility]) Name Value Range Interpretation Code Description Data Brooke rce(s) Supporting Document(s) UA URINALYSIS eCW1 ([facility]) ID Date Data Source [id number] 04/17/2020 12:00:00 PM EST [facility] Name Value Range Interpretation Code Description Data Brooke rce(s) Supporting Document(s) SARS coronavirus 2 RNA [facility] This lab was ordered by [facility] and reported by [facility]. ID Date Data Source [id number] 04/17/2020 10:33:00 AM EST MEDENT ([facility], ) Name Value Range Interpretation Code Description Data Brooke rce(s) Supporting Document(s) Laboratory test finding (navigational concept) Laboratory test result MEDENT ([facility], ) ID Date Data Source [id number] 04/12/2020 12:00:00 AM EDT [facility] ology Imaging Roby Miner MD Patient Name: TRES VALDES [facility] Date of : 1960Suite Date of Exam: 04/12/2020[address] [id number]#: Fax: [id number] EXAM: MRI KNEE LEFT WITHOUT [...] from its patellar attachment. There is patchy [id number] seen throughout the proximal patellar tendon withoutsignificant [...] Other findings as described above.Accredited by the [employer] in MR.Kay Fatima, RUBEN/Makenzie you for referring TRES VALDES to our office. Electronically Signed - KAY FATIMA DO 04/12/20 14:37 Name Value Range Interpretation Code Description Data Brooke rce(s) Supporting Document(s) Procedure Social History Code Duration Value Status Description Data Source(s ) Smoking 09/25/2020 12:00:00 AM EDT Former Smoker completed Former Smoker eCW1 ([facility]) Smoking 09/25/2020 12:00:00 AM EDT Former Smoker completed Former Smoker eCW1 ([facility]) Smoking 09/25/2020 12:00:00 AM EDT Former Smoker completed Former Smoker eCW1 ([facility]) Smoking 09/25/2020 12:00:00 AM EDT Former Smoker completed Former Smoker eCW1 ([facility]) Smoking 09/25/2020 12:00:00 AM EDT Former Smoker completed Former Smoker eCW1 ([facility]) Smoking 09/25/2020 12:00:00 AM EDT Former Smoker completed Former Smoker eCW1 ([facility]) Smoking 09/25/2020 12:00:00 AM EDT Former Smoker completed Former Smoker eCW1 ([facility]) Smoking 09/25/2020 12:00:00 AM EDT Former Smoker completed Former Smoker eCW1 ([facility]) Smoking 09/25/2020 12:00:00 AM EDT Former Smoker completed Former Smoker eCW1 ([facility]) Smoking 09/25/2020 12:00:00 AM EDT Former Smoker completed Former Smoker eCW1 ([facility]) Smoking 09/25/2020 12:00:00 AM EDT Former Smoker completed Former Smoker eCW1 ([facility]) Smoking 08/08/2020 12:00:00 AM EST Former Smoker completed Former Smoker eCW1 ([facility]) Smoking 08/08/2020 12:00:00 AM EST Former Smoker completed Former Smoker eCW1 ([facility]) Smoking 08/08/2020 12:00:00 AM EST Former Smoker completed Former Smoker eCW1 ([facility]) Smoking 07/25/2020 12:00:00 AM EST Former Smoker completed Former Smoker eCW1 ([facility]) Smoking 07/25/2020 12:00:00 AM EST Former Smoker completed Former Smoker eCW1 ([facility]) Smoking 07/25/2020 12:00:00 AM EST Former Smoker completed Former Smoker eCW1 ([facility]) Smoking 05/24/2020 12:00:00 AM EST Former Smoker completed Former Smoker eCW1 ([facility]) Smoking 05/24/2020 12:00:00 AM EST Former Smoker completed Former Smoker eCW1 ([facility]) Smoking 05/24/2020 12:00:00 AM EST Former Smoker completed Former Smoker eCW1 ([facility]) Smoking 05/24/2020 12:00:00 AM EST Former Smoker completed Former Smoker eCW1 ([facility]) Vital Signs ID Date Data Source UNK Name Value Range Interpretation Code Description Data Source(s) Systolic blood pressure 122 mm[Hg] 122 mm[Hg] [facility] Diastolic blood pressure 78 mm[Hg] 78 mm[Hg] [facility] ([facility]) Body height 73 [in_i] 73 [in_i] [facility] ([facility]) 6'1" Body weight 209.00 [lb_av] 209.00 [facility]_av[facility] Body mass index (BMI) [Ratio] 27.6 kg/m2 27.6 k g/m2 [facility] ([facility]) [place] body weight 184 [lb_av] 184 [lb_av] [facility] T ([facility]) Body weight 94.802 kg 94.802 kg [facility] ([facility]) Body surface area Derived from formula 2.19 m2 2.19 m2 [facility] ([facility]) Systolic blood pressure 140 mm[Hg] 140 mm[Hg] [facility] ([facility]) Diastolic blood pressure 86 mm[Hg] 86 mm[Hg] [facility] ([facility]) Heart rate 96 /min 96 /min [facility] ([facility]) Oxygen saturation in Arterial blood by Pulse oximetry 95 % 95 % [facility] ([facility]) Respiratory rate 16 /min 16 /min [facility] ( [facility]) Body temperature 99.3 [degF] 99.3 [degF] [facility] ([facility]) Body height 73 [in_i] 73 [in_i] [facility] ([facility]) 6'1" Body weight 214.50 [lb_av] 214.50 [lb_av] [facility] T ([facility]) Body mass index (BMI) [Ratio] 28.3 kg/m2 28.3 k g/m2 [facility] ([facility]) [place] body weight 184 [lb_av] 184 [lb_av] [facility] T ([facility]) Body weight 97.297 kg 97.297 kg [facility] ([facility]) Body surface area Derived from formula 2.22 m2 2.22 m2 [facility] ([facility]) Oxygen saturation in Arterial blood by Pulse oximetry 95 % 95 % [facility] ([facility]) Respiratory rate 16 /min 16 /min [facility] ( [facility]) Body temperature 99.3 [degF] 99.3 [degF] [facility] ([facility]) Body height 73 [in_i] 73 [in_i] [facility] ([facility]) 6'1" Body weight 214.50 [lb_av] 214.50 [lb_av] [facility] T ([facility]) Body mass index (BMI) [Ratio] 28.3 kg/m2 28.3 k g/m2 [facility] ([facility]) [place] body weight 184 [lb_av] 184 [lb_av] [facility] T ([facility]) Body weight 97.297 kg 97.297 kg [facility] ([facility]) Body surface area Derived from formula 2.22 m2 2.22 m2 [facility] Body weight 220 [lb_av] 220 [lb_av] eCW1 ([facility]) Body height 72 [in_i] 72 [in_i] eCW1 ([facility]) Body mass index (BMI) [Ratio] 29.83 kg/m2 29.83 kg/m2 eCW1 ([facility]) Heart rate 70 /min 70 /min eCW1 ([facility]) Respiratory rate 18 /min 18 /min eCW1 ([facility]) Systolic blood pressure 134 mm[Hg] 134 mm[Hg] e CW1 ([facility]) Diastolic blood pressure 90 mm[Hg] 90 mm[Hg] eCW1 ([facility]) Body weight 218 [lb_av] 218 [lb_av] eCW1 ([facility]) Body height 72 [in_i] 72 [in_i] eCW1 ([facility]) Body mass index (BMI) [Ratio] 29.56 kg/m2 29.56 kg/m2 eCW1 ([facility]) Respiratory rate 18 /min 18 /min eCW1 ([facility]) Heart rate 76 /min 76 /min eCW1 ([facility]) Systolic blood pressure 136 mm[Hg] 136 mm[Hg] e CW1 ([facility]) Diastolic blood pressure 80 mm[Hg] 80 mm[Hg] eCW1 ([facility]) Body height 72 [in_i] 72 [in_i] eCW1 ([facility]) Body weight 224 [lb_av] 224 [lb_av] eCW1 ([facility]) Body mass index (BMI) [Ratio] 30.38 kg/m2 30.38 kg/m2 eCW1 ([facility]) Heart rate 82 /min 82 /min eCW1 ([facility]) Respiratory rate 18 /min 18 /min eCW1 ([facility]) Body temperature 97.5 [degF] 97.5 [degF] eCW1 ( [facility]) Systolic blood pressure 136 mm[Hg] 136 mm[Hg] e CW1 ([facility]) Diastolic blood pressure 74 mm[Hg] 74 mm[Hg] eCW1 ([facility]) Body temperature 99.4 [degF] 99.4 [degF] MEDENT ([facility], ) Body weight 224 [lb_av] 224 [lb_av] eCW1 ([facility]) Body height 72 [in_i] 72 [in_i] eCW1 ([facility]) Body mass index (BMI) [Ratio] 30.38 kg/m2 30.38 kg/m2 eCW1 ([facility]) Heart rate 82 /min 82 /min eCW1 ([facility]) Respiratory rate 18 /min 18 /min eCW1 ([facility]) Body temperature 97.0 [degF] 97.0 [degF] eCW1 ( [facility]) Systolic blood pressure 132 mm[Hg] 132 mm[Hg] e CW1 ([facility]) Diastolic blood pressure 74 mm[Hg] 74 mm[Hg] eCW1 ([facility]) Body temperature 97.8 [degF] 97.8 [degF] MEDENT ([facility], ) Body weight 222.00 [lb_av] 222.00 [lb_av] MEDEN T ([facility], ) Body mass index (BMI) [Ratio] 29.3 kg/m2 29.3 k g/m2 [facility] ([facility], ) [place] body weight 184 [lb_av] 184 [lb_av] MEDEN T ([facility], ) Body weight 100.699 kg 100.699 kg [facility] ([facility], ) Body surface area Derived from formula 2.25 m2 2.25 m2 [facility] Systolic blood pressure 120 mm[Hg] 120 mm[Hg] M EDENT ([facility], ) Diastolic blood pressure 78 mm[Hg] 78 mm[Hg] MED[facility] ([facility], ) Body height 73 [in_i] 73 [in_i] [facility] 6'1" Patient Treatment Plan of Care Planned Activity Planned Date Details Description Data Source (s) Acetaminophen 325 MG / Hydrocodone Bitartrate 10 MG Or al Tablet 03/30/2021 12:00:00 AM EDT eCW1 ([facility]) Acetaminophen 325 MG / Hydrocodone Bitartrate 10 MG Or al Tablet 02/06/2021 12:00:00 AM EDT eCW1 ([facility]) Acetaminophen 325 MG / Hydrocodone Bitartrate 10 MG Or al Tablet 02/06/2021 12:00:00 AM EDT eCW1 ([facility]) Acetaminophen 325 MG / Hydrocodone Bitartrate 10 MG Or al Tablet 01/05/2021 12:00:00 AM EDT eCW1 ([facility]) Acetaminophen 325 MG / Hydrocodone Bitartrate 10 MG Or al Tablet 12/06/2020 12:00:00 AM EDT eCW1 ([facility]) Acetaminophen 325 MG / Hydrocodone Bitartrate 10 MG Or al Tablet 12/06/2020 12:00:00 AM EDT eCW1 ([facility]) Acetaminophen 325 MG / Hydrocodone Bitartrate 10 MG Or al Tablet 11/06/2020 12:00:00 AM EDT eCW1 ([facility]) Acetaminophen 325 MG / Hydrocodone Bitartrate 10 MG Or al Tablet 10/05/2020 12:00:00 AM EDT eCW1 ([facility]) Acetaminophen 325 MG / Hydrocodone Bitartrate 10 MG Or al Tablet 09/05/2020 12:00:00 AM EDT eCW1 ([facility]) Sulfamethoxazole 800 MG / Trimethoprim 160 MG Oral Tab let [Bactrim] 08/10/2020 12:00:00 AM EST eCW1 ([facility]) Sulfamethoxazole 800 MG / Trimethoprim 160 MG Oral Tab let [Bactrim] 08/10/2020 12:00:00 AM EST eCW1 ([facility]) Sulfamethoxazole 800 MG / Trimethoprim 160 MG Oral Tab let [Bactrim] 08/10/2020 12:00:00 AM EST eCW1 ([facility]) Acetaminophen 325 MG / Hydrocodone Bitartrate 10 MG Or al Tablet 08/01/2020 12:00:00 AM EST eCW1 ([facility]) Acetaminophen 325 MG / Hydrocodone Bitartrate 10 MG Or al Tablet 08/01/2020 12:00:00 AM EST eCW1 ([facility]) Acetaminophen 325 MG / Hydrocodone Bitartrate 10 MG Or al Tablet 08/01/2020 12:00:00 AM EST eCW1 ([facility]) famciclovir 500 MG Oral Tablet 07/25/2020 12:00:00 AM EST eCW1 ([facility]) famciclovir 500 MG Oral Tablet 07/25/2020 12:00:00 AM EST eCW1 ([facility]) famciclovir 500 MG Oral Tablet 07/25/2020 12:00:00 AM EST eCW1 ([facility]) Acetaminophen 325 MG / Hydrocodone Bitartrate 10 MG Or al Tablet 06/30/2020 12:00:00 AM EST eCW1 ([facility]) Acetaminophen 325 MG / Hydrocodone Bitartrate 10 MG Or al Tablet 06/30/2020 12:00:00 AM EST eCW1 ([facility]) Acetaminophen 325 MG / Hydrocodone Bitartrate 10 MG Or al Tablet 06/30/2020 12:00:00 AM EST eCW1 ([facility]) Acetaminophen 325 MG / Hydrocodone Bitartrate 10 MG Or al Tablet 05/30/2020 12:00:00 AM EST eCW1 ([facility]) Acetaminophen 325 MG / Hydrocodone Bitartrate 10 MG Or al Tablet 05/02/2020 12:00:00 AM EST eCW1 ([facility]) Acetaminophen 325 MG / Hydrocodone Bitartrate 10 MG Or al Tablet 03/29/2020 12:00:00 AM EDT eCW1 ([facility]) Acetaminophen 325 MG / Hydrocodone Bitartrate 10 MG Or al Tablet 03/29/2020 12:00:00 AM EDT eCW1 ([facility])
[2021-04-24] MEDS ORDERED: D5W/0.9% SODIUM CHLORIDE 1,000 ML IV SCH (08:15)
[2021-04-24] MEDS ORDERED: PIPERACILLIN/TAZOBACTAM SOD 4.5 GM in D5W MINI-BAG PLUS 50 ML IV ONE (08:25)
--- NOTE | 2021-04-24 08:44 | REP ---
INDICATION: dog bite. COMPARISON: 08/28/2020. TECHNIQUE: Single portable AP view of the chest was performed. FINDINGS: There is no acute infiltrate or pulmonary edema. Lungs are clear. The heart is not significantly enlarged. The mediastinal silhouette is unremarkable. The visualized osseous structures are intact. IMPRESSION: No acute pulmonary disease. <Electronically signed by Mo Acosta > 04/24/21 0870
[2021-04-24] MEDS: GABAPENTIN 400MG CAP PO SCH ×2 (09:00→21:05)
[2021-04-24] MEDS: DULoxetine 30MG CAPSULE (CYMBALTA) PO SCH ×2 (09:00→21:07)
[2021-04-24] MEDS: OMEPRAZOLE 20 MG CAP PO SCH ×2 (09:00→21:06)
[2021-04-24] MEDS ORDERED: LIDOCAINE 2% 100MG/5ML SDV (FOR ANES.) As Ordered ONE (09:05)
[2021-04-24] MEDS ORDERED: dexameTHASONE 4 MG/ML 1ML VIAL (J1100 PER 1MG) As Ordered ONE (09:05)
[2021-04-24] MEDS ORDERED: ROCURONIUM BROMIDE 50 MG/5 ML VIAL As Ordered ONE ×2 (09:05→17:17)
[2021-04-24] MEDS ORDERED: fentaNYL 250 MCG/5 ML INJECTION (J3010) As Ordered ONE (09:05)
[2021-04-24] MEDS ORDERED: MIDAZOLAM INJ 2MG/2ML VIAL (J2250 PER 1MG) As Ordered ONE (09:05)
[2021-04-24] MEDS ORDERED: propofoL 200 MG/20 ML VIAL As Ordered ONE (09:05)
[2021-04-24] MEDS ORDERED: ONDANSETRON 4MG/2ML VIAL As Ordered ONE (09:05)
[2021-04-24 09:17] LABS: BASO # 0.1 10^3/uL (0.0-0.2); BASO % 0.5 % (0.0-1.0); EOS # 0.3 10^3/uL (0.0-0.5); EOS % 2.4 % (0.0-3.0); HEMATOCRIT 41.2 % (42.0-52.0); HEMOGLOBIN 13.7 g/dl (13.5-17.5); LYMPH # 2.4 10^3/uL (1.5-5.0); LYMPH % 21.2 % (24.0-44.0); MEAN CORPUSCULAR HEMOGLOBIN 30.3 pg (27.0-33.0); MEAN CORPUSCULAR HGB CONC 33.3 g/dl (32.0-36.5); MEAN CORPUSCULAR VOLUME 91.2 fl (80.0-96.0); MONO # 0.8 10^3/uL (0.0-0.8); MONO % 7.2 % (2.0-8.0); NEUTROPHILS # 7.8 10^3/uL (1.5-8.5); NEUTROPHILS % 68.1 % (36.0-66.0); PLATELET COUNT, AUTOMATED 219 10^3/uL (150-450); RED BLOOD COUNT 4.52 10^6/uL (4.30-6.10); WHITE BLOOD COUNT 11.5 10^3/uL (4.0-10.0)
--- NOTE | 2021-04-24 09:25 | REPVR ---
PROCEDURE INFORMATION: Exam: CT Maxillofacial Without Contrast Exam date and time: 04/24/2021 8:50 AM Age: 60 years old Clinical indication: Injury or trauma; Other: Dog bite; Blunt trauma (contusions or hematomas) and laceration; Lip/oral cavity; Upper; Not specified; Additional info: Dog bite RO foreign body TECHNIQUE: Imaging protocol: Computed tomography images of the face without contrast. Radiation optimization: All CT scans at this facility use at least one of these dose optimization techniques: automated exposure control; mA and/or kV adjustment per patient size (includes targeted exams where dose is matched to clinical indication); or iterative reconstruction. COMPARISON: No relevant prior studies available. FINDINGS: Orbital cavity: Orbits are normal. Globes are unremarkable. 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 Stenosis of the spinal canal neural foramina at several levels. Paranasal sinuses: Retention cyst the right maxillary sinus. Soft tissues: Extensive laceration of the upper lip. IMPRESSION: Extensive laceration of the upper lip. No acute fractures. Electronically signed by: Hill Reynolds On 04/24/2021 09:24:28 AM
[2021-04-24] MEDS ORDERED: [UNRECOGNIZED DRUG - CODE] SL (09:35)
[2021-04-24] MEDS ORDERED: C-101TAB PO (09:35)
[2021-04-24 09:38] LABS: BLOOD UREA NITROGEN 23 MG/DL (7-18); CALCIUM LEVEL 8.8 MG/DL (8.5-10.1); CARBON DIOXIDE LEVEL 29 MEQ/L (21-32); CHLORIDE LEVEL 109 MEQ/L (98-107); CREATININE FOR GFR 0.75 MG/DL (0.70-1.30); GLOMERULAR FILTRATION RATE > 60.0 (>56); GLUCOSE, FASTING 102 MG/DL (70-100); POTASSIUM SERUM 3.9 MEQ/L (3.5-5.1); SODIUM LEVEL 142 MEQ/L (136-145)
[2021-04-24] MEDS ORDERED: HOME MED LIST COMPLETE! XX SCH (09:40)
[2021-04-24 09:55] LABS: RSV AMPLIFICATION NEGATIVE (NEGATIVE)
[2021-04-24] MEDS ORDERED: ALBUTEROL 90 MCG/ACT 8GM HFA INHALER INH PRN (10:20)
[2021-04-24] MEDS ORDERED: ONDANSETRON 4 MG TAB PO PRN (10:20)
[2021-04-24] MEDS ORDERED: ACETAMINOPHEN TAB 650MG DOSE (2X325MG) PO PRN (10:20)
--- OUTSIDE RECORDS SUMMARY | 2021-04-24 10:32 | CCD ---
Author Author [facility] Organization [facility] Address Unknown Phone Unavailable Care Team Providers Care Mortgage Processing Manager Name Role Phone MILAGROS BOWERS MD Unavailable [...] is protected by Article 27-F of the [facility] Public Health law. If you continue you may have access to information: Regarding HIV / AIDS; Provided by facilities licensed or operated by the [facility] Office of Mental Health; or Provided by the [facility] Office for People With Developmental Disabilities. If such information is present, then the following [facility] mandated warning applies: This [...] law may result in a fine or nursing home sentence or both. A general authorization for the release of medical or other information is NOT sufficient authorization for further disc losure. Family History Family Member Name Family Member Gender Family Member Status Date o f Status Description Data Source(s) Unknown Unknown Problem MEDENT ([facility]) Unknown Female Problem MEDENT ([facility]) Unknown Female Problem MEDENT ([facility]) Encounters Encounter Providers Location Date Indications Data Source(s ) Unknown [address] [facility] [address] 03/30/2021 12:00:00 AM EDT [facility] Unknown [address] [facility] [place] [address] 02/09/2021 12:00:00 AM EDT [facility]) Unknown [address] [facility] [place] [address] 02/06/2021 12:00:00 AM EDT eCW1 ([facility]) Unknown [address] [facility] [place] [address] 01/05/2021 12:00:00 AM EDT eCW1 ([facility]) Outpatient Attender: MILAGROS Siegel/Phan/[place]/Dallin garces 01/01/2021 01:00:00 PM EDT MEDENT ([facility]) [place] [address] [facility] [address] 12/26/2020 12:00:00 AM EDT eCW1 [facility] Unknown [address] [facility] [place] [address] 12/06/2020 12:00:00 AM EDT eCW1 ([facility]) Unknown [address] [facility] [place] [address] 11/06/2020 12:00:00 AM EDT eCW1 [facility]) Outpatient Attender: Roby Siegel/Phan/[place]/Re indl 11/02/2020 02:45:00 PM EDT MEDENT ([facility]) Unknown [address] [facility] [address] 10/05/2020 12:00:00 AM EDT eCW1 ([facility]) Unknown [address] [facility] [place] [address] 09/25/2020 12:00:00 AM EDT eCW1 ([facility]) (Cysto1) Urology [address] [place] [address] 09/25/2020 12:00:00 AM EDT eCW1 ([facility]) Unknown [address] [facility] [place] [address] 09/25/2020 12:00:00 AM EDT eCW1 ([facility]) Unknown [address] [facility] [place] [address] 09/04/2020 12:00:00 AM EDT eCW1 ([facility]) Unknown [address] [facility] [place] [address] 08/10/2020 12:00:00 AM EST eCW1 ([facility]) Outpatient [address] [facility] Y [address] 08/08/2020 12:00:00 AM EST eCW1 ([facility]) Unknown [address] [facility] [place] [address] 08/01/2020 12:00:00 AM EST eCW1 ([facility]) Unknown [address] [facility] [place] [address] 07/31/2020 12:00:00 AM EST eCW1 ([facility]) Outpatient [address] [facility] Y [address] 07/25/2020 12:00:00 AM EST eCW1 ([facility]) Outpatient Attender: Roby Siegel/Phan/[place]/Re indl 07/24/2020 10:30:00 AM EST MEDENT ([facility] Unknown [address] [facility] [address] 07/24/2020 12:00:00 AM EST eCW1 [facility] Unknown [address] [facility] [place] [address] 06/30/2020 12:00:00 AM EST eCW1 ([facility]) Office Visit Attender: Roby Siegel/[place]/Re indl 05/31/2020 09:10:00 AM EST MEDENT ([facility] Unknown [address] [facility] [place] [address] 05/30/2020 12:00:00 AM EST eCW1 ([facility]) Office Visit, Est Pt., Level 3 PC [address] [place] [address] 05/24/2020 12:00:00 AM EST eCW1 ([facility]) Office Visit Attender: Roby Siegel/Phan/[place]/Re indl 05/03/2020 10:10:00 AM EST MEDENT ([facility]) Unknown [address] [facility] [place] [address] 05/01/2020 12:00:00 AM EST eCW1 ([facility] Unknown [address] [facility] [address] 05/01/2020 12:00:00 AM EST eCW1 ([facility]) Outpatient Attender: Roby Siegel/Phan/[place]/Re indl 04/14/2020 08:40:00 AM EDT MEDENT ([facility]) Outpatient Attender: Roby Siegel/Phan/[place]/Re indl 03/28/2020 01:50:00 PM EDT MEDENT ([facility] Unknown [address] [facility] [place] [address] 03/28/2020 12:00:00 AM EDT eCW1 ([facility]) Outpatient Attender: Roby Siegel/Phan/[place]/Re indl 03/23/2020 01:40:00 PM EDT MEDENT ([facility], ) Office Visit Attender: Roby Plascencia/[place]/Re indl 03/16/2020 09:50:00 AM EDT MEDENT ([facility], ) Outpatient Attender: MILAGROS Siegel/Phan/[place]/Rein dl 03/07/2020 10:15:00 AM EDT MEDENT ([facility]) Office Visit Attender: Roby Siegel/Phan/[place]/Re indl 02/24/2020 09:50:00 AM EDT MEDENT ([facility]) Medications Medication Brand Name Start [...] MAXIMUM DAILY DOSE = 4 SOLD: 04/04/2021 [facility] Acetaminophen 325 MG / Hydrocodone Hill trate 10 MG Oral Tablet HYDROcodone- Acetaminophen 10-325 MG HYDROcodone-Acetaminophen 10-325 MG 03/30/2021 12:00:0 0 AM EDT active HYDROcodone-Aceta minophen 10-325 MG eCW1 ([facility]) Acetaminophen 325 MG / Hydrocodone Bitartrate 10 MG Or al Tablet 10-325 mg HYDROCODONE/ACETAMINOPHEN 03/03/2021 12:00:00 AM EDT tablet 120 TAKE ONE TABLET BY MOUTH EVERY 6 HOURS NEEDED MAXIMUM DAILY DOSE = 4 TAKE ONE TABLET BY MOUTH EVERY 6 HOURS NEEDED MAXIMUM DAILY DOSE = 4 SOLD: 03/06/2021 [facility] 60 ACTUAT Fluticasone propionate 0.25 MG [...] {tablet_as_needed} active HYDROcodone-Acetaminophen 10- 325 MG eCW1 ([facility]) Acetaminophen 325 MG / Hydrocodone Hill trate 10 MG Oral Tablet HYDROcodone- Acetaminophen 10-325 MG HYDROcodone-Acetaminophen 10-325 MG 02/06/2021 12:00:0 0 AM EDT 1.0 {tablet_as_needed} active HYDROcodone-Acetaminophen 10- 325 MG eCW1 ([facility]) Acetaminophen 325 MG / Hydrocodone Bitartrate 10 [...] {tablet_as_needed} active HYDROcodone-Acetaminophen 10- 325 MG eCW1 ([facility]) Acetaminophen 325 MG / Hydrocodone Bitartrate 10 [...] {tablet_as_needed} active HYDROcodone-Acetaminophen 10- 325 MG eCW1 ([facility]) Acetaminophen 325 MG / Hydrocodone Hill trate 10 MG Oral Tablet HYDROcodone- Acetaminophen 10-325 MG HYDROcodone-Acetaminophen 10-325 MG 12/06/2020 12:00:0 0 AM EDT 1.0 {tablet_as_needed} active HYDROcodone-Acetaminophen 10- 325 MG eCW1 ([facility]) Acetaminophen 325 MG / Hydrocodone Hill trate 10 MG Oral Tablet Hydrocodone- Acetaminophen 10-325 MG Hydrocodone-Acetaminophen 10-325 MG 11/06/2020 12:00:0 0 AM EDT 1.0 {tablet_as_needed} active eCW1 ([facility]) Acetaminophen 325 MG / Hydrocodone Bitartrate 10 [...] {tablet_as_needed} active Hydrocodone-Acetaminophen 10- 325 MG eCW1 ([facility]) Acetaminophen 325 MG / Hydrocodone Bitartrate 10 [...] {tablet_as_needed} active Hydrocodone-Acetaminophen 10- 325 MG eCW1 ([facility]) 10-325 mg 09/05/2020 12:00:00 AM EDT tablet 120 TAKE ONE TABLET BY MOUTH EVERY 6 HOURS MAXIMUM DAILY DOSE = 4 TAKE ONE TABLET BY MOUTH EVERY 6 HOURS MAXIMUM DAILY DOSE = 4 SOLD: 09/06/2020 [facility] Acetaminophen 325 MG / Hydrocodone Hill trate 10 MG Oral Tablet Hydrocodone- Acetaminophen 10-325 MG Hydrocodone-Acetaminophen 10-325 MG 09/05/2020 12:00:0 0 AM EDT 1.0 {tablet_as_needed} active Hydrocodone-Acetaminophen 10- 325 MG eCW1 ([facility]) Acetaminophen 325 MG / Hydrocodone Hill trate 10 MG Oral Tablet Hydrocodone- Acetaminophen 10-325 MG Hydrocodone-Acetaminophen 10-325 MG 09/05/2020 12:00:0 0 AM EDT 1.0 {tablet_as_needed} active Hydrocodone-Acetaminophen 10- 325 MG eCW1 ([facility]) Acetaminophen 325 MG / Hydrocodone Hill trate 10 MG Oral Tablet Hydrocodone- Acetaminophen 10-325 MG Hydrocodone-Acetaminophen 10-325 MG 09/05/2020 12:00:0 0 AM EDT 1.0 {tablet_as_needed} active Hydrocodone-Acetaminophen 10- 325 MG eCW1 ([facility]) Sulfamethoxazole 800 MG / Trimethoprim 1 60 MG Oral Tablet [Bactrim] Bactrim DS 800-160 MG Bactrim DS 800-160 MG 08/10/2020 12:00:00 AM EST 1.0 {table t} active Bactrim DS 800-160 MG eCW1 ( [facility]) Sulfamethoxazole 800 MG / Trimethoprim 1 60 MG Oral Tablet [Bactrim] Bactrim DS 800-160 MG Bactrim DS 800-160 MG 08/10/2020 12:00:00 AM EST 1.0 {table t} active Bactrim DS 800-160 MG eCW1 ( [facility]) Sulfamethoxazole 800 MG / Trimethoprim 1 60 MG Oral Tablet [Bactrim] Bactrim DS 800-160 MG Bactrim DS 800-160 MG 08/10/2020 12:00:00 AM EST 1.0 {table t} active Bactrim DS 800-160 MG eCW1 ( [facility]) Sulfamethoxazole 800 MG / Trimethoprim 1 60 MG Oral Tablet [Bactrim] Bactrim DS 800-160 MG Bactrim DS 800-160 MG 08/10/2020 12:00:00 AM EST 1.0 {table t} active Bactrim DS 800-160 MG eCW1 ( [facility]) Sulfamethoxazole 800 MG / Trimethoprim 1 60 MG Oral Tablet [Bactrim] Bactrim DS 800-160 MG Bactrim DS 800-160 MG 08/10/2020 12:00:00 AM EST 1.0 {table t} active Bactrim DS 800-160 MG eCW1 ( [facility]) Sulfamethoxazole 800 MG / Trimethoprim 1 60 MG Oral Tablet [Bactrim] Bactrim DS 800-160 MG Bactrim DS 800-160 MG 08/10/2020 12:00:00 AM EST 1.0 {table t} active Bactrim DS 800-160 MG eCW1 ( [facility]) Sulfamethoxazole 800 MG / Trimethoprim 1 60 MG Oral Tablet [Bactrim] Bactrim DS 800-160 MG Bactrim DS 800-160 MG 08/10/2020 12:00:00 AM EST 1.0 {table t} active Bactrim DS 800-160 MG eCW1 ( [facility]) Sulfamethoxazole 800 MG / Trimethoprim 1 60 MG Oral Tablet [Bactrim] Bactrim DS 800-160 MG Bactrim DS 800-160 MG 08/10/2020 12:00:00 AM EST 1.0 {table t} active eCW1 ([facility]) Sulfamethoxazole 800 MG / Trimethoprim 1 60 MG Oral Tablet [Bactrim] Bactrim DS 800-160 MG Bactrim DS 800-160 MG 08/10/2020 12:00:00 AM EST 1.0 {table t} active Bactrim DS 800-160 MG eCW1 ( [facility]) 800-160 mg 08/10/2020 12:00:00 AM EST tablet [...] active Bactrim DS 800-160 MG eCW1 ( [facility]) Sulfamethoxazole 800 MG / Trimethoprim 1 60 MG Oral Tablet [Bactrim] Bactrim DS 800-160 MG Bactrim DS 800-160 MG 08/10/2020 12:00:00 AM EST 1.0 {table t} active Bactrim DS 800-160 MG eCW1 ( [facility]) Sulfamethoxazole 800 MG / Trimethoprim 1 60 MG Oral Tablet [Bactrim] Bactrim DS 800-160 MG Bactrim DS 800-160 MG 08/10/2020 12:00:00 AM EST 1.0 {table t} active Bactrim DS 800-160 MG eCW1 ( [facility]) Sulfamethoxazole 800 MG / Trimethoprim 1 60 MG Oral Tablet [Bactrim] Bactrim DS 800-160 MG Bactrim DS 800-160 MG 08/10/2020 12:00:00 AM EST 1.0 {table t} active Bactrim DS 800-160 MG eCW1 ( [facility]) Sulfamethoxazole 800 MG / Trimethoprim 1 60 MG Oral Tablet [Bactrim] Bactrim DS 800-160 MG Bactrim DS 800-160 MG 08/10/2020 12:00:00 AM EST 1.0 {table t} active Bactrim DS 800-160 MG eCW1 ( [facility]) Acetaminophen 325 MG / Hydrocodone Hill trate 10 MG Oral Tablet Hydrocodone- Acetaminophen 10-325 MG Hydrocodone-Acetaminophen 10-325 MG 08/01/2020 12:00:0 0 AM EST 1.0 {tablet_as_needed} active Hydrocodone-Acetaminophen 10- 325 MG eCW1 ([facility]) Acetaminophen 325 MG / Hydrocodone Hill trate 10 MG Oral Tablet Hydrocodone- Acetaminophen 10-325 MG Hydrocodone-Acetaminophen 10-325 MG 08/01/2020 12:00:0 0 AM EST 1.0 {tablet_as_needed} active Hydrocodone-Acetaminophen 10- 325 MG eCW1 ([facility]) Acetaminophen 325 MG / Hydrocodone Bitartrate 10 [...] {tablet_as_needed} active Hydrocodone-Acetaminophen 10- 325 MG eCW1 ([facility]) Acetaminophen 325 MG / Hydrocodone Hill trate 10 MG Oral Tablet Hydrocodone- Acetaminophen 10-325 MG Hydrocodone-Acetaminophen 10-325 MG 08/01/2020 12:00:0 0 AM EST 1.0 {tablet_as_needed} active Hydrocodone-Acetaminophen 10- 325 MG eCW1 ([facility]) Acetaminophen 325 MG / Hydrocodone Hill trate 10 MG Oral Tablet Hydrocodone- Acetaminophen 10-325 MG Hydrocodone-Acetaminophen 10-325 MG 08/01/2020 12:00:0 0 AM EST 1.0 {tablet_as_needed} active Hydrocodone-Acetaminophen 10- 325 MG eCW1 ([facility]) 500 mg 07/26/2020 12:00:00 AM EST tablet 14 TAKE ONE TABLET BY MOUTH TWICE A DAY FOR 7 DAYS TAKE ONE TABLET BY MOUTH TWICE A DAY FOR 7 DAYS SOLD: 07/26/2020 [facility] Cephalexin 500 MG Oral Capsule CEPHALEXIN 07/26/2020 12:00:00 AM EST capsule 14 TAKE ONE CAPSULE BY MOUTH TWICE A DAY TAKE ONE CAPSULE BY [facility] TWICE A DAY SOLD: 07/26/2020 [facility] famciclovir 500 MG Oral Tablet Famciclovir 500 MG Famciclovi r 500 MG 07/25/2020 12:00:00 AM EST 1.0 {tablet} suspended Famciclovir 500 MG eCW1 ([facility]) famciclovir 500 MG Oral Tablet Famciclovir 500 MG Famciclovi r 500 MG 07/25/2020 12:00:00 AM EST 1.0 {tablet} suspended Famciclovir 500 MG eCW1 ([facility]) famciclovir 500 MG Oral Tablet Famciclovir 500 MG Famciclovi r 500 MG 07/25/2020 12:00:00 AM EST 1.0 {tablet} suspended Famciclovir 500 MG eCW1 ([facility]) famciclovir 500 MG Oral Tablet Famciclovir 500 MG Famciclovi r 500 MG 07/25/2020 12:00:00 AM EST 1.0 {tablet} suspended Famciclovir 500 MG eCW1 ([facility]) famciclovir 500 MG Oral Tablet Famciclovir 500 MG Famciclovi r 500 MG 07/25/2020 12:00:00 AM EST 1.0 {tablet} suspended Famciclovir 500 MG eCW1 ([facility]) famciclovir 500 MG Oral Tablet Famciclovir 500 MG Famciclovi r 500 MG 07/25/2020 12:00:00 AM EST 1.0 {tablet} suspended Famciclovir 500 MG eCW1 ([facility]) famciclovir 500 MG Oral Tablet Famciclovir 500 MG Famciclovi r 500 MG 07/25/2020 12:00:00 AM EST 1.0 {tablet} active Fa mciclovir 500 MG eCW1 ([facility]) famciclovir 500 MG Oral Tablet Famciclovir 500 MG Famciclovi r 500 MG 07/25/2020 12:00:00 AM EST 1.0 {tablet} suspended Famciclovir 500 MG eCW1 ([facility]) famciclovir 500 MG Oral Tablet Famciclovir 500 MG Famciclovi r 500 MG 07/25/2020 12:00:00 AM EST 1.0 {tablet} suspended Famciclovir 500 MG eCW1 ([facility]) famciclovir 500 MG Oral Tablet Famciclovir 500 MG Famciclovi r 500 MG 07/25/2020 12:00:00 AM EST 1.0 {tablet} active Fa mciclovir 500 MG eCW1 ([facility]) famciclovir 500 MG Oral Tablet Famciclovir 500 MG Famciclovi r 500 MG 07/25/2020 12:00:00 AM EST 1.0 {tablet} suspended Famciclovir 500 MG eCW1 ([facility]) famciclovir 500 MG Oral Tablet Famciclovir 500 MG Famciclovi r 500 MG 07/25/2020 12:00:00 AM EST 1.0 {tablet} active Fa mciclovir 500 MG eCW1 ([facility]) famciclovir 500 MG Oral Tablet Famciclovir 500 MG Famciclovi r 500 MG 07/25/2020 12:00:00 AM EST 1.0 {tablet} suspended Famciclovir 500 MG eCW1 ([facility]) famciclovir 500 MG Oral Tablet Famciclovir 500 MG Famciclovi r 500 MG 07/25/2020 12:00:00 AM EST 1.0 {tablet} suspended Famciclovir 500 MG eCW1 ([facility]) famciclovir 500 MG Oral Tablet Famciclovir 500 MG Famciclovi r 500 MG 07/25/2020 12:00:00 AM EST 1.0 {tablet} suspended Famciclovir 500 MG eCW1 ([facility]) famciclovir 500 MG Oral Tablet Famciclovir 500 MG Famciclovi r 500 MG 07/25/2020 12:00:00 AM EST 1.0 {tablet} suspended eCW1 ([facility]) famciclovir 500 MG Oral Tablet Famciclovir 500 MG Famciclovi r 500 MG 07/25/2020 12:00:00 AM EST 1.0 {tablet} suspended Famciclovir 500 MG eCW1 ([facility]) 10-325 mg 06/30/2020 12:00:00 AM EST tablet 120 TAKE ONE TABLET BY MOUTH EVERY 6 HOURS MAXIMUM DAILY DOSE = FOUR TABLETS TAKE ONE TABLET BY MOUTH EVERY 6 HOURS MAXIMUM DAILY DOSE = FOUR TABLETS SOLD: 07/04/2020 [facility] Acetaminophen 325 MG / Hydrocodone Hill trate 10 MG Oral Tablet Hydrocodone- Acetaminophen 10-325 MG Hydrocodone-Acetaminophen 10-325 MG 06/30/2020 12:00:0 0 AM EST 1.0 {tablet_as_needed} active Hydrocodone-Acetaminophen 10- 325 MG eCW1 ([facility]) Acetaminophen 325 MG / Hydrocodone Hill trate 10 MG Oral Tablet Hydrocodone- Acetaminophen 10-325 MG Hydrocodone-Acetaminophen 10-325 MG 06/30/2020 12:00:0 0 AM EST 1.0 {tablet_as_needed} active Hydrocodone-Acetaminophen 10- 325 MG eCW1 ([facility]) Acetaminophen 325 MG / Hydrocodone Hill trate 10 MG Oral Tablet Hydrocodone- Acetaminophen 10-325 MG Hydrocodone-Acetaminophen 10-325 MG 06/30/2020 12:00:0 0 AM EST 1.0 {tablet_as_needed} active Hydrocodone-Acetaminophen 10- 325 MG eCW1 ([facility]) Budesonide 3 MG Delayed Release Oral Capsule Budesonide 06/21/2020 12:00:00 AM EST ORAL completed MEDENT ([facility], ) Budesonide 3 MG Delayed Release Oral Capsule Budesonide 06/21/2020 12:00:00 AM EST ORAL active MEDENT ([facility], ) 500 mg 05/30/2020 12:00:00 AM EST [...] {tablet_as_needed} active Hydrocodone-Acetaminophen 10- 325 MG eCW1 ([facility]) 0.12 % 05/30/2020 12:00:00 AM EST mouthwash [...] {tablet_as_needed} active Hydrocodone-Acetaminophen 10- 325 MG eCW1 ([facility]) 10-325 mg 05/02/2020 12:00:00 AM EST tablet 120 TAKE ONE TABLET BY MOUTH EVERY 6 HOURS MAXIMUM DAILY DOSE = FOUR TABLETS TAKE ONE TABLET BY MOUTH EVERY 6 HOURS MAXIMUM DAILY DOSE = FOUR TABLETS SOLD: 05/05/2020 [facility] Morphine Sulfate 15 MG Extended Release Oral Tablet [MS Cont in] MS Contin 04/20/2020 12:00:00 AM EST ORAL active MEDENT ([facility]) 5-325 mg 04/20/2020 12:00:00 [...] 04/19/2020 12:00:00 AM EST ORAL active MEDENT ([facility], ) 10-325 mg 04/02/2020 12:00:00 AM EDT tablet 120 TAKE ONE TABLET BY MOUTH EVERY 6 HOURS MAXIMUM DAILY DOSE = 4 TAKE ONE TABLET BY MOUTH EVERY 6 HOURS MAXIMUM DAILY DOSE = 4 SOLD: 04/03/2020 [facility] Acetaminophen 325 MG / Hydrocodone Hill trate 10 MG Oral Tablet Hydrocodone- Acetaminophen 10-325 MG Hydrocodone-Acetaminophen 10-325 MG 03/29/2020 12:00:0 0 AM EDT 1.0 {tablet_as_needed} active Hydrocodone-Acetaminophen 10- 325 MG eCW1 ([facility]) Acetaminophen 325 MG / Hydrocodone Hill trate 10 MG Oral Tablet Hydrocodone- Acetaminophen 10-325 MG Hydrocodone-Acetaminophen 10-325 MG 03/29/2020 12:00:0 0 AM EDT 1.0 {tablet_as_needed} active Hydrocodone-Acetaminophen 10- 325 MG eCW1 ([facility]) 10-325 mg 03/02/2020 12:00:00 AM EDT tablet [...] type / Coverage type Policy ID Covered libertarian ID Covered libertarian's relationship to delgado Policy Delgado Plan Information Medicare [place] Primary [id number] Self i/[facility] (pr) Commercial [id number] Family Dependent MEDICARE A [id number] Self [id number] A Drink [place] [id number] Self [id number] MEDICARE [id number] V71 [facility] [id number] [facility] [id number] 564 [facility] [id number] ANSI-Medicare Part B [id number] ANSI-Commercial [id number] ANSI-Medicare Part B [id number] ANSI-Medicare Part B [id number] ANSI-Commercial [id number] ANSI-Commercial [id number] ANSI-Medicare Part B [id number] ANSI-Medicare Part B [id number] ANSI-Commercial [id number] ANSI-Medicare Part B [id number] ANSI-Commercial [id number] ANSI-Medicare Part B [id number] ANSI-Commercial [id number] ANSI-Medicare Part B [id number] ANSI-Commercial [id number] [facility] [id number] SP [id number] [address] [facility] [id number] SP [id number] 564 [facility] INSURANCE [id number] SP [id number] ANSI-Medicare Part B [id number] ANSI-Commercial [id number] ANSI-Medicare Part B [id number] ANSI-Commercial [id number] ANSI-Medicare Part B [id number] ANSI-Commercial x0j916ur-efvu-7207-o141-4u3m5751963j s6p909kg-kear-9423-u492-3g4i3453352i ANSI-Medicare Part B 0k6k9244-x85y-2078-5x91-h7q0457m8778 5k4i1848-a54b-2044-4y49-w2c7250v3900 ANSI-Commercial 7e3do347-j9hi-9otp-335e-355fy5u98i6i 4n6ns126-i1ci-8lgm-143p-271pr6w28i4d ANSI-Medicare Part B 686356t8-1uyv-174a-gkyp-72qj45m0uh06 868645p5-7ofz-084t-tpyk-83kg23z7uv91 ANSI-Commercial 0h26o009-189b-8790-w4y1-a8ao04z4o285 8m54x624-666k-2932-v9z5-e1cl68i5m593 ANSI-Commercial q601m9r6-3ujy-1q90-11z7-n8ir960y417y i989f0v7-8gjz-3i27-17d6-j2tz702q599y ANSI-Medicare Part B 309g0p07-5776-9b75-614j-0cvv4y568d69 282t5k45-4223-9y05-608t-7scx5u672p94 ANSI-Medicare Part B 3y143y4s-6xz6-8386-4961-7m30742v61tt 5e585b2u-1kz0-6440-6826-3c21710c85eq ANSI-Commercial 318j9841-u21r-763r-h693-37419z85k0ks 824o3672-x06i-341o-g896-96511a62x0ze ANSI-Commercial g45pd1uz-6110-3524-cl87-dg2l401ai26h i58wb1as-5300-7051-nc74-hj5n939pm95z ANSI-Medicare Part B 0g852fps-1443-9421-90e1-4189v6230496 0f846fcj-4056-2498-89k2-6180r7440917 ANSI-Medicare Part B 5ld3506v-g16t-4pb6-299j-g11669g03u94 3su0607h-k98s-1qo5-902t-b54326x48e32 ANSI-Commercial 4b904i98-6150-9c6n-cu33-9w9i65t24e5h 3w983x50-1093-9z6k-et77-6z7p55p07n4q ANSI-Commercial z8966q6d-a300-84j6-8pj7-vf8e2st94f79 l4470p9y-m453-96r4-5vt8-iq0x6yg45z35 ANSI-Medicare Part B u7v48094-nl70-9064-0y40-csi07k1018r3 l9g02252-cb80-1520-4b07-fjt76y3871j7 ANSI-Medicare Part B 4w7b59d4-22k1-2vz8-889s-zkh2f32785py 5f0w91h3-74e9-7qb7-036o-dzk6n21138mj ANSI-Commercial 7a5t83s1-x6qs-9766-p6y4-f05805j3030n 6m7y35q3-l6mb-3800-l8u3-a85556p2322o ANSI-Commercial sb471809-43s6-7504-z137-r614119b98dw eu578999-61u6-2494-d644-z526867b46qk ANSI-Medicare Part B 85891752-l553-780d-180m-46e9ltj0q699 40427225-c443-869i-765p-35x8lhd8s675 ANSI-Commercial 2g4u4288-7cnv-417g-494m-zt482uesf27x 5t0v4696-6wfy-739f-617e-ah565fspu96g ANSI-Medicare Part B 6p834751-n2h4-191q-0606-jmwy34pk370q 0k593082-e5w8-826m-9248-kpfo50tu740k ANSI-Medicare Part B w159e635-4321-0w48-0t5k-y34f00262dm1 m908e042-0359-3j06-2b7k-d92c45046qh5 ANSI-Commercial o4w4b483-8w12-85s9-2kzw-sz6q9jy60j7r g2z5j107-2t05-20x6-6xkw-oz4i7up74f3e ANSI-Medicare Part B [id number]-47zy-4sdl262i9l87 61363582-0475-872c-50fz-7iow964y5r36 ANSI-Commercial 72640292-78n9-0s8s-9i52-f18345l5pl26 [id number] ANSI-Medicare Part B [id number] ANSI-Commercial [id number] ANSI-Commercial [id number] ANSI-Medicare Part B [id number] [facility] INSURANCE [id number] ANSI-Medicare Part B [id number] ANSI-Commercial [id number] ANSI-Medicare Part B [id number] ANSI-Commercial [id number] ANSI-Medicare Part B [id number] ANSI-Commercial [id number] ANSI-Commercial [id number] ANSI-Medicare Part B [id number] ANSI-Medicare Part B [id number] ANSI-Commercial [id number] ANSI-Medicare Part B [id number] ANSI-Commercial [id number] MEDICARE [id number] SP [id number] A [facility] Part B [id number] Self [id number] Medicare Natl Gov't Servi Medicare Primary [id number] Self [id number] MEDICARE C [id number] S [id number] A [place] [employer] O [id number] P [id number] MEDICARE [id number] SP [id number] A MEDICARE C [id number] S [id number] A [facility] [id number] SP [id number] MEDICARE [id number] SP [id number] [facility] [id number] [facility] [id number] [id number] [facility] O [id number] S [id number] MEDICARE C [id number] S [id number] [id number] ANSI-Commercial [id number] Problems, Conditions, and Diagnoses Code Display Name Description Problem Type Effective Dates Data Source(s) N20.0 Kidney stone Kidney stone Problem 09/25/2020 12:00:00 A M EDT eCW1 ([facility]) N40.1 Benign prostatic hypertrophy with outflo w obstruction BPH loc w urin obs/LUTS Problem 09/25/2020 12:00:00 AM EDT eCW1 ([facility]) N20.0 Kidney stone Kidney stone on left side Problem 08/08/19 12:00:00 AM EST eCW1 ([facility]) N20.0 [id number] Renal stone Problem 07/25/2020 12:00:[address] eCW1 ([facility]) Z00.00 [id number] Medicare annual wellness visit, initial P roblem 05/24/2020 12:00:00 AM EST eCW1 ([facility]) Surgeries/Procedures Procedure Description Date Indications Data Source(s) OFFICE OUTPATIENT VISIT 25 MINUTES 01/01/2021 12:00:00 AM EDT MEDENT ([facility], ) OFFICE OUTPATIENT VISIT 10 MINUTES 11/02/2020 12:00:00 AM EDT MEDENT ([facility], ) Medication: Lidocaine HCl 2% Jelly 5mL Intravesically 09/25/2020 12:00:00 AM EDT eCW1 ([facility]) TOBACCO USE ASSESSED 09/25/2020 12:00:00 AM EDT eCW1 ([facility]) OFFICE OUTPATIENT VISIT 15 MINUTES 07/24/2020 12:00:00 AM EST MEDENT ([facility], ) SUTURE QUADRICEPS/HAMSTRING RUPTURE PRIMARY 04/21/2020 12:00:00 AM EST MEDENT ([facility], ) X-Ray Shoulder Complete 03/28/2020 12:00:00 AM EDT MEDENT ([facility], ) RADEX SHOULDER COMPLETE MINIMUM 2 VIEWS 03/28/2020 12: 00:00 AM EDT MEDENT ([facility]) RADIOLOGIC EXAMINATION KNEE 1/2 VIEWS 03/16/2020 12:00 :00 AM EDT MEDENT ([facility], ) RADIOLOGIC EXAMINATION KNEE 1/2 VIEWS 03/16/2020 12:00 :00 AM EDT MEDENT ([facility]) Physical Therapy Eval - Low Complexity 03/08/2020 12:0 0:00 AM EDT MEDENT ([facility]) Results ID Date Data Source [id number] 09/03/2020 11:00:00 AM EDT [facility] Name Value Range Interpretation Code Description Data Brooke rce(s) Supporting Document(s) SARS coronavirus 2 RNA Not Detected [facility] [place] This lab was ordered by [facility] and reported by [facility]. ID Date Data Source URINE CULTURE 08/08/2020 12:00:00 AM EST eCW1 ([facility]) Name Value Range Interpretation Code Description Data Brooke rce(s) Supporting Document(s) URINE CULTURE eCW1 ([facility]) ID Date Data Source UA URINALYSIS 08/08/2020 12:00:00 AM EST eCW1 ([facility]) Name Value Range Interpretation Code Description Data Brooke rce(s) Supporting Document(s) UA URINALYSIS eCW1 ([facility]) ID Date Data Source [id number] 04/17/2020 12:00:00 PM EST [facility] Name Value Range Interpretation Code Description Data Brooke rce(s) Supporting Document(s) SARS coronavirus 2 RNA [facility] This lab was ordered by [facility] and reported by [facility]. ID Date Data Source [id number] 04/17/2020 10:33:00 AM EST MEDENT ([facility], ) Name Value Range Interpretation Code Description Data Brooke rce(s) Supporting Document(s) Laboratory test finding (navigational concept) Laboratory test result MEDENT ([facility], ) ID Date Data Source [id number] 04/12/2020 12:00:00 AM EDT [facility] ology Imaging Roby Miner MD Patient Name: TRES VALDES [facility] Date of : 1960Suite Date of Exam: 04/12/2020[place] [id number]#: Fax: [id number] EXAM: MRI KNEE LEFT WITHOUT [...] from its patellar attachment. There is patchy [id number] seen throughout the proximal patellar tendon withoutsignificant [...] Other findings as described above.Accredited by the [employer] in MR.Kay Fatima, RUBEN/Makenzie you for referring TRES VALDES to our office. Electronically Signed - KAY FATIMA DO 04/12/20 14:37 Name Value Range Interpretation Code Description Data Brooke rce(s) Supporting Document(s) Procedure Social History Code Duration Value Status Description Data Source(s ) Smoking 09/25/2020 12:00:00 AM EDT Former Smoker completed Former Smoker eCW1 ([facility]) Smoking 09/25/2020 12:00:00 AM EDT Former Smoker completed Former Smoker eCW1 ([facility]) Smoking 09/25/2020 12:00:00 AM EDT Former Smoker completed Former Smoker eCW1 ([facility]) Smoking 09/25/2020 12:00:00 AM EDT Former Smoker completed Former Smoker eCW1 ([facility]) Smoking 09/25/2020 12:00:00 AM EDT Former Smoker completed Former Smoker eCW1 ([facility]) Smoking 09/25/2020 12:00:00 AM EDT Former Smoker completed Former Smoker eCW1 ([facility]) Smoking 09/25/2020 12:00:00 AM EDT Former Smoker completed Former Smoker eCW1 ([facility]) Smoking 09/25/2020 12:00:00 AM EDT Former Smoker completed Former Smoker eCW1 ([facility]) Smoking 09/25/2020 12:00:00 AM EDT Former Smoker completed Former Smoker eCW1 ([facility]) Smoking 09/25/2020 12:00:00 AM EDT Former Smoker completed Former Smoker eCW1 ([facility]) Smoking 09/25/2020 12:00:00 AM EDT Former Smoker completed Former Smoker eCW1 ([facility]) Smoking 08/08/2020 12:00:00 AM EST Former Smoker completed Former Smoker eCW1 ([facility]) Smoking 08/08/2020 12:00:00 AM EST Former Smoker completed Former Smoker eCW1 ([facility]) Smoking 08/08/2020 12:00:00 AM EST Former Smoker completed Former Smoker eCW1 ([facility]) Smoking 07/25/2020 12:00:00 AM EST Former Smoker completed Former Smoker eCW1 ([facility]) Smoking 07/25/2020 12:00:00 AM EST Former Smoker completed Former Smoker eCW1 ([facility]) Smoking 07/25/2020 12:00:00 AM EST Former Smoker completed Former Smoker eCW1 ([facility]) Smoking 05/24/2020 12:00:00 AM EST Former Smoker completed Former Smoker eCW1 ([facility]) Smoking 05/24/2020 12:00:00 AM EST Former Smoker completed Former Smoker eCW1 ([facility]) Smoking 05/24/2020 12:00:00 AM EST Former Smoker completed Former Smoker eCW1 ([facility]) Smoking 05/24/2020 12:00:00 AM EST Former Smoker completed Former Smoker eCW1 ([facility]) Vital Signs ID Date Data Source UNK Name Value Range Interpretation Code Description Data Source(s) Systolic blood pressure 122 mm[Hg] 122 mm[Hg] M DUARTE ([facility]) Diastolic blood pressure 78 mm[Hg] 78 mm[Hg] [facility] ([facility]) Body height 73 [in_i] 73 [in_i] [facility] ([facility]) 6'1" [place] body weight 184 [lb_av] 184 [lb_av] MEDEN T ([facility]) Body weight 94.802 kg 94.802 kg [facility] ([facility]) Body surface area Derived from formula 2.19 m2 2.19 m2 [facility] ([facility]) Body weight 209.00 [lb_av] 209.00 [lb_av] MEDEN T ([facility]) Body mass index (BMI) [Ratio] 27.6 kg/m2 27.6 k g/m2 [facility] ([facility]) Oxygen saturation in Arterial blood by Pulse oximetry 95 % 95 % [facility] ([facility]) Respiratory rate 16 /min 16 /min [facility] ( [facility]) Body temperature 99.3 [degF] 99.3 [degF] [facility] ([facility]) Body height 73 [in_i] 73 [in_i] [facility] ([facility]) 6'1" Body weight 214.50 [lb_av] 214.50 [lb_av] MEDEN T ([facility]) Body mass index (BMI) [Ratio] 28.3 kg/m2 28.3 k g/m2 [facility] ([facility]) [place] body weight 184 [lb_av] 184 [lb_av] MEDEN T ([facility]) Body weight 97.297 kg 97.297 kg [facility] ([facility]) Body surface area Derived from formula 2.22 m2 2.22 m2 [facility] ([facility]) Oxygen saturation in Arterial blood by Pulse oximetry 95 % 95 % [facility] ([facility]) Systolic blood pressure 140 mm[Hg] 140 mm[facility]Hg] [facility] Diastolic blood pressure 86 mm[Hg] 86 mm[Hg] [facility] ([facility]) Heart rate 96 /min 96 /min [facility] ([facility]) Body temperature 99.3 [degF] 99.3 [degF] [facility] ([facility]) Body height 73 [in_i] 73 [in_i] [facility] ([facility]) 6'1" Body weight 214.50 [lb_av] 214.50 [lb_av] MEDEN T ([facility]) Body mass index (BMI) [Ratio] 28.3 kg/m2 28.3 k g/m2 [facility] ([facility]) [place] body weight 184 [lb_av] 184 [lb_av] MEDEN T ([facility]) Body weight 97.297 kg 97.297 kg [facility] ([facility]) Body surface area Derived from formula 2.22 m2 2.22 m2 MEDENT ([facility], ) Respiratory rate 16 /min 16 /min MEDENT ( [facility], ) Diastolic blood pressure 90 mm[Hg] 90 mm[Hg] eCW1 ([facility]) Body weight 220 [lb_av] 220 [lb_av] eCW1 ([facility]) Body height 72 [in_i] 72 [in_i] eCW1 ([facility]) Body mass index (BMI) [Ratio] 29.83 kg/m2 29.83 kg/m2 eCW1 ([facility]) Heart rate 70 /min 70 /min eCW1 ([facility]) Respiratory rate 18 /min 18 /min eCW1 ([facility]) Systolic blood pressure 134 mm[Hg] 134 mm[Hg] e CW1 ([facility]) Body height 72 [in_i] 72 [in_i] eCW1 ([facility]) Body mass index (BMI) [Ratio] 29.56 kg/m2 29.56 kg/m2 eCW1 ([facility]) Respiratory rate 18 /min 18 /min eCW1 ([facility]) Body weight 218 [lb_av] 218 [lb_av] eCW1 ([facility]) Heart rate 76 /min 76 /min eCW1 ([facility]) Systolic blood pressure 136 mm[Hg] 136 mm[Hg] e CW1 ([facility]) Diastolic blood pressure 80 mm[Hg] 80 mm[Hg] eCW1 ([facility]) Body height 72 [in_i] 72 [in_i] eCW1 ([facility]) Body weight 224 [lb_av] 224 [lb_av] eCW1 ([facility]) Body mass index (BMI) [Ratio] 30.38 kg/m2 30.38 kg/m2 eCW1 ([facility]) Heart rate 82 /min 82 /min eCW1 ([facility]) Respiratory rate 18 /min 18 /min eCW1 ([facility]) Body temperature 97.5 [degF] 97.5 [degF] eCW1 ( [facility]) Systolic blood pressure 136 mm[Hg] 136 mm[Hg] e CW1 ([facility]) Diastolic blood pressure 74 mm[Hg] 74 mm[Hg] eCW1 ([facility]) Body temperature 99.4 [degF] 99.4 [degF] MEDENT ([facility], ) Body weight 224 [lb_av] 224 [lb_av] eCW1 ([facility]) Body height 72 [in_i] 72 [in_i] eCW1 ([facility]) Body mass index (BMI) [Ratio] 30.38 kg/m2 30.38 kg/m2 eCW1 ([facility]) Heart rate 82 /min 82 /min eCW1 ([facility]) Respiratory rate 18 /min 18 /min eCW1 ([facility]) Body temperature 97.0 [degF] 97.0 [degF] eCW1 ( [facility]) Systolic blood pressure 132 mm[Hg] 132 mm[Hg] e CW1 ([facility]) Diastolic blood pressure 74 mm[Hg] 74 mm[Hg] eCW1 ([facility]) Body temperature 97.8 [degF] 97.8 [degF] MEDENT ([facility], ) Body weight 222.00 [lb_av] 222.00 [lb_av] MEDEN T ([facility], ) Body mass index (BMI) [Ratio] 29.3 kg/m2 29.3 k g/m2 MEDENT ([facility], ) Body weight 100.699 kg 100.699 [facility] [place] body weight 184 [lb_av] 184 [lb_av] MEDEN T ([facility], ) Body surface area Derived from formula 2.25 m2 2.25 m2 [facility] Systolic blood pressure 120 mm[Hg] 120 mm[Hg] M EDENT ([facility], ) Diastolic blood pressure 78 mm[Hg] 78 mm[Hg] MEDENT ([facility], ) Body height 73 [in_i] 73 [in_i] [facility] 6'1" Patient Treatment Plan of Care Planned Activity Planned Date Details Description Data Source (s) Acetaminophen 325 MG / Hydrocodone Bitartrate 10 MG Or al Tablet 03/30/2021 12:00:00 AM EDT eCW1 ([facility]) Acetaminophen 325 MG / Hydrocodone Bitartrate 10 MG Or al Tablet 02/06/2021 12:00:00 AM EDT eCW1 ([facility]) Acetaminophen 325 MG / Hydrocodone Bitartrate 10 MG Or al Tablet 02/06/2021 12:00:00 AM EDT eCW1 ([facility]) Acetaminophen 325 MG / Hydrocodone Bitartrate 10 MG Or al Tablet 01/05/2021 12:00:00 AM EDT eCW1 ([facility]) Acetaminophen 325 MG / Hydrocodone Bitartrate 10 MG Or al Tablet 12/06/2020 12:00:00 AM EDT eCW1 ([facility]) Acetaminophen 325 MG / Hydrocodone Bitartrate 10 MG Or al Tablet 12/06/2020 12:00:00 AM EDT eCW1 ([facility]) Acetaminophen 325 MG / Hydrocodone Bitartrate 10 MG Or al Tablet 11/06/2020 12:00:00 AM EDT eCW1 ([facility]) Acetaminophen 325 MG / Hydrocodone Bitartrate 10 MG Or al Tablet 10/05/2020 12:00:00 AM EDT eCW1 ([facility]) Acetaminophen 325 MG / Hydrocodone Bitartrate 10 MG Or al Tablet 09/05/2020 12:00:00 AM EDT eCW1 ([facility]) Sulfamethoxazole 800 MG / Trimethoprim 160 MG Oral Tab let [Bactrim] 08/10/2020 12:00:00 AM EST eCW1 ([facility]) Sulfamethoxazole 800 MG / Trimethoprim 160 MG Oral Tab let [Bactrim] 08/10/2020 12:00:00 AM EST eCW1 ([facility]) Sulfamethoxazole 800 MG / Trimethoprim 160 MG Oral Tab let [Bactrim] 08/10/2020 12:00:00 AM EST eCW1 ([facility]) Acetaminophen 325 MG / Hydrocodone Bitartrate 10 MG Or al Tablet 08/01/2020 12:00:00 AM EST eCW1 ([facility]) Acetaminophen 325 MG / Hydrocodone Bitartrate 10 MG Or al Tablet 08/01/2020 12:00:00 AM EST eCW1 ([facility]) Acetaminophen 325 MG / Hydrocodone Bitartrate 10 MG Or al Tablet 08/01/2020 12:00:00 AM EST eCW1 ([facility]) famciclovir 500 MG Oral Tablet 07/25/2020 12:00:00 AM EST eCW1 ([facility]) famciclovir 500 MG Oral Tablet 07/25/2020 12:00:00 AM EST eCW1 ([facility]) famciclovir 500 MG Oral Tablet 07/25/2020 12:00:00 AM EST eCW1 ([facility]) Acetaminophen 325 MG / Hydrocodone Bitartrate 10 MG Or al Tablet 06/30/2020 12:00:00 AM EST eCW1 ([facility]) Acetaminophen 325 MG / Hydrocodone Bitartrate 10 MG Or al Tablet 06/30/2020 12:00:00 AM EST eCW1 ([facility]) Acetaminophen 325 MG / Hydrocodone Bitartrate 10 MG Or al Tablet 06/30/2020 12:00:00 AM EST eCW1 ([facility]) Acetaminophen 325 MG / Hydrocodone Bitartrate 10 MG Or al Tablet 05/30/2020 12:00:00 AM EST eCW1 ([facility]) Acetaminophen 325 MG / Hydrocodone Bitartrate 10 MG Or al Tablet 05/02/2020 12:00:00 AM EST eCW1 ([facility]) Acetaminophen 325 MG / Hydrocodone Bitartrate 10 MG Or al Tablet 03/29/2020 12:00:00 AM EDT eCW1 ([facility]) Acetaminophen 325 MG / Hydrocodone Bitartrate 10 MG Or al Tablet 03/29/2020 12:00:00 AM EDT eCW1 ([facility])
[2021-04-24] MEDS ORDERED: POVIDONE-IODINE 5% OPHTH PREP SOL 30ML As Ordered ONE (11:07)
--- NOTE | 2021-04-24 11:48 | CR.PDOC ---
Plastic Surgery Consultation Date of Consultation 04/24/21 History and Physical CONSULT REPORT FOR: Emergency room REASON FOR CONSULTATION: Dog bite to the face HISTORY OF PRESENT ILLNESS: This is a 60-year-old male who presented to emergen cy room today status post dog bite to the face that happened today. Patient was bitten by [employer] which is his dog. Dog has all its shots. He has complete laceration on the right upper lip all the way to the to the base of the nose. There is also multiple superficial abrasions and scratches on the right cheek right nose and left cheek. No active bleeding currently. Patient states he has full sensation of the face. He has normal motion of right and left cheeks. PAST MEDICAL HISTORY: Chronic back pain, hypercholesteremia, PAST SURGICAL HISTORY: INCLUDES: 2 surgeries left leg, carpal tunnel left wrist, wrist fusion left wrist. PREVIOUS ANESTHESIA REACTIONS: Denies ALLERGIES: Please see below. FAMILY HISTORY: . HOME MEDICATIONS: Please see below. REVIEW OF SYSTEMS: GENERAL: Denies chills, reports weight gain,. HEENT: Denies blurred vision and double vision. Denies ear symptoms. Denies hoarseness. NECK: Denies any neck pain]. CARDIOVASCULAR: Denies chest pain and palpitations. MUSCULOSKELETAL: Denies arthralgias, back pain and thrombophlebitis. SKIN: Denies rash.Laceration Right upper lip. NEUROLOGIC: Denies headache, stroke and transient ischemic attack. PSYCHIATRIC: Denies anxiety and depression. ENDOCRINE: Denies thyroid disease. HEMATOLOGY/ONCOLOGY: Denies bleeding or clotting disorder. HEART: Denies any chest pains, palpitations, paroxysmal dyspnea, orthopnea. PULMONARY: Denies chronic cough, dyspnea and wheezing. GASTROINTESTINAL: Denies rectal bleeding, family history of colon cancer, constipation, diarrhea, dysphagia, heartburn and jaundice. GENITOURINARY: Denies dysuria, frequency, hematuria and nocturia. ENDOCRINE: Denies polydipsia, polyphagia, polyuria, heat or cold intolerance. INFECTIOUS: Denies any recent upper respiratory tract infection, UTI, need for use of antibiotics. NUTRITION: Reports good appetite. PHYSICAL EXAMINATION: VITALS SIGNS: Please see below. GENERAL APPEARANCE:Patient seen, laying in bed, awake, alert, and oriented. Comfortable, in no acute distress. SKIN: Warm and moist. HEENT: Normocephalic, atraumatic. [place] palpebral conjunctiva, anicteric sclerae. Lips and mucosa appear moist. Complete laceration full thickness Right upper lip to the nose. NECK: Supple, no thyromegaly. No obvious jugular venous distention. LUNGS: Clear to auscultation bilaterally. No wheezing appreciated. HEART: No chest wall abnormalities. Regular rate and rhythm with no murmurs appreciated. EXTREMITIES: Extremities have no deformities. No edema identified. No calf tenderness. LABORATORY DATA: Please see below. IMPRESSION: Dog bite to the face. PLANS: IV antibiotics started in ER Tetanus - ER OR for exploration facial lacerations and repair of divided structures. Risks, benefits and alternatives discussed with patient in details. He is ready to proceed. . Vital Signs Vital Signs Date Time Temp Pulse Resp B/P (MAP) Pulse Ox O2 Delivery O2 Flow Rate FiO2 04/24/21 09:17 18 04/24/21 08:30 147/93 (111) 04/24/21 07:20 98.8 69 97 Room Air Laboratory Data Labs 24H Laboratory Tests 2 04/24/21 08:59: Anion Gap 4L, Glomerular Filtration Rate > 60.0, Calcium Level 8.8 04/24/21 09:07: Immature Granulocyte % (Auto) 0.6, Neutrophils (%) (Auto) 68.1H, Lymphocytes (%) (Auto) 21.2L, Monocytes (%) (Auto) 7.2, Eosinophils (%) (Auto) 2.4, Basophils (%) (Auto) 0.5, Neutrophils # (Auto) 7.8, Lymphocytes # (Auto) 2.4, Monocytes # (Auto) 0.8, Eosinophils # (Auto) 0.3, Basophils # (Auto) 0.1, Nucleated Red Blood Cells % (auto) 0.0, Coronavirus (COVID-19)(PCR) NEGATIVE, Influenza Type A (RT-PCR) NEGATIVE, Influenza Type B (RT-PCR) NEGATIVE, Respiratory Syncytial Virus (PCR) NEGATIVE CBC/BMP Laboratory Tests 04/24/21 08:59 04/24/21 09:07 Home Medications Scheduled Ascorbic Acid (C-1000) 1,000 Mg Tablet.er, 1,000 MG PO QHS, (Reported) Budesonide (Budesonide EC) 3 Mg Capdr...er, 9 MG PO DAILY, (Reported) Cholecalciferol (Vitamin D3) (Vitamin D3) 1,000 Unit Tablet, 1,000 UNITS PO QHS, (Reported) Cyanocobalamin (Vitamin B-12) (Vitamin B-12) 5,000 Mcg Tab.subl, 5,000 MCG SL QHS, (Reported) Duloxetine Hcl (Cymbalta) 60 Mg Capsule.dr, 60 MG PO BID, (Reported) Finasteride (Finasteride) 5 Mg Tab, 5 MG PO DAILY, (Reported) Gabapentin (Gabapentin) 800 Mg Tab, 1,600 MG PO BID, (Reported) Hydrocodone/Acetaminophen (Hydrocodone-Acetamin 10-325 mg) 1 Tab Tab, 1 TAB PO QID, (Reported) Meloxicam (Meloxicam) 15 Mg Tab, 15 MG PO QHS, (Reported) Montelukast Sodium (Montelukast Sodium) 10 Mg Tablet, 10 MG PO QHS, (Reported) Omeprazole (Omeprazole) 40 Mg Cap, 40 MG PO BID, (Reported) Salmeterol/Fluticasone (Advair 250-50 Diskus) 1 Each Blst.w.dev, 1 PUFF INH BID, (Reported) Simvastatin (Simvastatin) 40 Mg Tab, 40 MG PO QHS, (Reported) Tamsulosin HCl (Flomax) 0.4 Mg Capsule, 0.8 MG PO QHS, (Reported) once daily 1/2 hour following the same meal each day Scheduled PRN Albuterol Sulfate (Ventolin Hfa) 108 Mcg/Act Aer, 2 PUFFS INH Q6H PRN for SOB/WHEEZING, (Reported) Dicyclomine HCl (Dicyclomine HCl) 20 Mg Tablet, 20 MG PO QHS PRN for CRAMPS, (Reported) Ondansetron HCl (Ondansetron HCl) 8 Mg Tab, 8 MG PO TID PRN for NAUSEA OR VOMITING, (Reported) Pseudoephedrine HCl (Sudafed) 30 Mg Tablet, 30 MG PO Q6H PRN for CONGESTION, (Reported) Sildenafil Citrate (Viagra) 100 Mg Tab, 100 MG PO ASDIRECTED PRN for ERECTILE DYSFUNCTION, (Reported) Allergies Coded Allergies: No Known Allergies (Unverified , 09/01/20) KATHARINA MONTENEGRO DO Apr 24, 2021 11:48
[2021-04-24] MEDS: AMPICILLIN SOD/SULBACTAM SOD 3 GM in D5W MINI-BAG PLUS 100 ML IV SCH ×3 (12:00→23:57)
[2021-04-24] MEDS ORDERED: LIDOCAINE 2% W/EPINEPHRINE 20ML VIAL **PRES FREE As Ordered ONE (12:08)
[2021-04-24] MEDS ORDERED: ePHEDrine SULFATE 25 MG/5 ML(5MG/ML) SYRINGE As Ordered ONE (12:36)
[2021-04-24] MEDS ORDERED: ceFAZolin 1GM VIAL (J0690 PER 500MG) As Ordered ONE (12:41)
[2021-04-24] MEDS ORDERED: BACITRACIN OINTMENT 30GM TUBE As Ordered ONE (12:43)
[2021-04-24] MEDS ORDERED: ACETAMINOPHEN 1000MG 100ML IV BTL (OFIRMEV) (J0131 PER 10MG) As Ordered ONE (13:01)
[2021-04-24] MEDS ORDERED: SUGAMMADEX SODIUM 500 MG/5 ML VIAL (BRIDION) As Ordered ONE ×2 (13:01→17:33)
[2021-04-24] MEDS ORDERED: METOCLOPRAMIDE INJ 10MG/2ML VIAL (J2765 PER 1) As Ordered ONE (13:08)
[2021-04-24] MEDS ORDERED: ALBUTEROL 6.7GM INHALER **FOR ANES. CART/OMNICELL ONLY As Ordered ONE (13:12)
[2021-04-24] MEDS ORDERED: PHENYLephrine 500MCG 5ML (100MCG/ML) SYRINGE As Ordered ONE (13:15)
[2021-04-24] MEDS ORDERED: HYDROmorphone HCL 2 MG/ML 1ML VIAL As Ordered ONE (13:35)
--- NOTE | 2021-04-24 13:45 | HPEPDOC ---
[facility] Medical History & Physical Date of Admission Apr 24, 2021 Date of Service: Apr 24, 2021 Attending Physician: SAADIA BLUM MD History and Physical CHIEF COMPLAINT: Dog bite HISTORY OF PRESENT ILLNESS: 60 yo M with a history of microscopic colitis on budesonide and follows with Dr. Gardner, chronic back and neck pain, GERD and asthma who presented to the ED after his 2y old dog had a seizure and bit him in the face in the midst of its confusion? He sustained several lacerations with one very large one that is macerated, bleeding and top lip is swollen and dangling. Plastic surgery was consulted from the ED and recommended admission to medicine, IV antibiotics and will take to OR shortly. His ROS is otherwise grossly negative except for chronic back pain and the new facial pain since the bite. No fever, chills, SOB, palpations, chest pain, LOC. PAST MEDICAL HISTORY: microscopic colitis on budesonide and follows with Dr. Gardner, chronic back and neck pain, GERD and asthma PAST SURGICAL HISTORY: L carpal tunnel surgery L knee TKA EGD/[place] SOCIAL HISTORY: Tobacco use: prior smoker, quit >5y ago ETOH: No Illicit drug use: No FAMILY HISTORY: Father: Pancreatic cancer Mother: Ovarian cancer ALLERGIES: Please see below. REVIEW OF SYSTEMS: 10point ROS was completed and otherwise negative except as noted in the HPI. HOME MEDICATIONS: Please see below. PHYSICAL EXAMINATION: VITAL SIGNS: see below GENERAL APPEARANCE: NAD, bandaging across top lip HEENT: NCAT, EOMI, swollen lower face, with bandaging across top lip with some blood. CARDIOVASCULAR: RRRm, no m/r/g LUNGS: CTAB ABDOMEN: Normoactive sounds, soft, NTND MUSCULOSKELETAL: 5/5 strength and tone throughout EXTREMITIES: WWP, no edema, 2+ DP pulses NEUROLOGICAL: nonfocal examination, did not test CN 5-12 given lacerations and bandaging PSYCHIATRIC: AOx3 LABORATORY DATA: See below. IMAGING: Maxillofacial CT: Orbital cavity: Orbits are normal. Globes are unremarkable. 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 Stenosis of the spinal canal neural foramina at several levels. Paranasal sinuses: Retention cyst the right maxillary sinus. Soft tissues: Extensive laceration of the upper lip. IMPRESSION: Extensive laceration of the upper lip. No acute fractures. CXR: There is no acute infiltrate or pulmonary edema. Lungs are clear. The heart is not significantly enlarged. The mediastinal silhouette is unremarkable. The visualized osseous structures are intact. IMPRESSION: No acute pulmonary disease. MICROBIOLOGY: Please see below. ASSESSMENT: 60 yo M with a history of microscopic colitis on budesonide and follows with Dr. Gardner, chronic back and neck pain, GERD and asthma who presented to the ED after a dog bite with several lacerations with one very large one that is macerated, bleeding with top lip swollen pending surgery by plastics. PLAN: Dog bite with severe facial laceration at top lip: -Pending going to the OR, plastics consulted -On empiric unasyn -Morphine PRN for pain -NPO -D5NS at 50cc/hr while NPO -s/p Tdap in ED BPH: -continue home finasteride and tamsulosin Chronic back and neck pain: -will plan to continue home norco, gabapentin but for now giving IV morphine PRN for pain while NPO for surgery Asthma: -continue home advair, montelukast and PRN albuterol Microscopic colitis: -will continue home budesonide, dicyclomine, ondansetron PRN GERD: -continue home BID omeprazole HLD: continue simvastatin DVT ppx: lovenox 40mg daily Vital Signs Vital Signs Date Time Temp Pulse Resp B/P (MAP) Pulse Ox O2 Delivery O2 Flow Rate FiO2 04/24/21 09:17 18 04/24/21 08:30 147/93 (111) 04/24/21 07:20 98.8 69 97 Room Air Laboratory Data Labs 24H Laboratory Tests 2 04/24/21 08:59: Anion Gap 4L, Glomerular Filtration Rate > 60.0, Calcium Level 8.8 04/24/21 09:07: Immature Granulocyte % (Auto) 0.6, Neutrophils (%) (Auto) 68.1H, Lymphocytes (%) (Auto) 21.2L, Monocytes (%) (Auto) 7.2, Eosinophils (%) (Auto) 2.4, Basophils (%) (Auto) 0.5, Neutrophils # (Auto) 7.8, Lymphocytes # (Auto) 2.4, Monocytes # (Auto) 0.8, Eosinophils # (Auto) 0.3, Basophils # (Auto) 0.1, Nucleated Red Blood Cells % (auto) 0.0, Coronavirus (COVID-19)(PCR) NEGATIVE, Influenza Type A (RT-PCR) NEGATIVE, Influenza Type B (RT-PCR) NEGATIVE, Respiratory Syncytial Virus (PCR) NEGATIVE CBC/BMP Laboratory Tests 04/24/21 08:59 04/24/21 09:07 Home Medications Scheduled Ascorbic Acid (C-1000) 1,000 Mg Tablet.er, 1,000 MG PO QHS Budesonide (Budesonide EC) 3 Mg Capdr...er, 9 MG PO DAILY Cholecalciferol (Vitamin D3) (Vitamin D3) 1,000 Unit Tablet, 1,000 UNITS PO QHS Cyanocobalamin (Vitamin B-12) (Vitamin B-12) 5,000 Mcg Tab.subl, 5,000 MCG SL QHS Duloxetine Hcl (Cymbalta) 60 Mg Capsule.dr, 60 MG PO BID Finasteride (Finasteride) 5 Mg Tab, 5 MG PO DAILY Gabapentin (Gabapentin) 800 Mg Tab, 1,600 MG PO BID Hydrocodone/Acetaminophen (Hydrocodone-Acetamin 10-325 mg) 1 Tab Tab, 1 TAB PO QID Meloxicam (Meloxicam) 15 Mg Tab, 15 MG PO QHS Montelukast Sodium (Montelukast Sodium) 10 Mg Tablet, 10 MG PO QHS Omeprazole (Omeprazole) 40 Mg Cap, 40 MG PO BID Salmeterol/Fluticasone (Advair 250-50 Diskus) 1 Each Blst.w.dev, 1 PUFF INH BID Simvastatin (Simvastatin) 40 Mg Tab, 40 MG PO QHS Tamsulosin HCl (Flomax) 0.4 Mg Capsule, 0.8 MG PO QHS once daily 1/2 hour following the same meal each day Scheduled PRN Albuterol Sulfate (Ventolin Hfa) 108 Mcg/Act Aer, 2 PUFFS INH Q6H PRN for SOB/WHEEZING Dicyclomine HCl (Dicyclomine HCl) 20 Mg Tablet, 20 MG PO QHS PRN for CRAMPS Ondansetron HCl (Ondansetron HCl) 8 Mg Tab, 8 MG PO TID PRN for NAUSEA OR VOMITING Pseudoephedrine HCl (Sudafed) 30 Mg Tablet, 30 MG PO Q6H PRN for CONGESTION Sildenafil Citrate (Viagra) 100 Mg Tab, 100 MG PO ASDIRECTED PRN for ERECTILE DYSFUNCTION Allergies Coded Allergies: No Known Allergies (Unverified , 09/01/20) A-FIB/CHADSVASC A-FIB History Current/History of A-Fib/PAF?: No Current PO Anticoag Therapy: No Age/Risk Factor Scoring CHADSVASC: CHADSVASC Response (Comments) Value Age Risk Factor Age < 65 years old 0 Gender Risk Factor Male 0 Hx of CHF No 0 Hx of HTN No 0 Hx of Stroke/TIA/or VTE No 0 Hx of Diabetes No 0 Hx of Vascular Disease No 0 Total 0 Treatment Treatment ordered: NONE Reason Anticoagulant not given: Not indicated/[id number] SAADIA BLUM MD Apr 24, 2021 13:45
--- NOTE | 2021-04-24 14:15 | ROOPDOC ---
[facility] Report Of Operation Report of Operation DATE OF PROCEDURE: 04/24/21 PREOPERATIVE DIAGNOSIS: Dog bite laceration to the face and lip. POSTOPERATIVE DIAGNOSIS: Same PROCEDURE: Exploration lacerations face and lip with repair of divided structures. SURGEON: Dr Montenegro ANESTHESIA: General ESTIMATED BLOOD LOSS: 1 cc FINDINGS: Multiple laceration face and upper lip. Upper gum 2 cm, Right lip full thickness 4.5cm on the right and 2 cm on the left. Right nose avulsion 1 cm. Left cheek 5 cm full thickness SPECIMENS: debrided tissue COMPLICATIONS: none REPLACED: none DRAINS: none POSTOPERATIVE CONDITION: stable DESCRIPTION OF PROCEDURE: This is a 60-year-old male who sustained dog bite lacerations today from his own dog. Patient was seen and evaluated and found to have extensive laceration throughout his face and his upper lip. Patient is scheduled for urgent surgical exploration of the facial and lip lacerations and repair divided structures in operating room. Risk, benefits, and alternatives of the procedure discussed with patient in detail and he is ready to proceed. After obtaining informed consent in the holding area he was brought into the operating room, placed in supine position, and general anesthesia was induced. Patient started on antibiotic in emergency room, additional 1 g of Ancef was given preop. We started our procedure by washing out the lacerations on left cheek right nose and upper lip. We identified several full thickness lacerations which are as follows: Right lateral nostril avulsion laceration 1 cm in diameter, upper lip right side full-thickness laceration with partial avulsion length 4.5 cm including complete laceration of the muscle layer starting at the lip inferior border extending to the nose superior. Left lip full-thickness laceration through the mucous part into the muscle layer 2 cm in length. Longitudinal laceration on the gum on the right upper side full-thickness 2 cm. Left cheek area of multiple lacerations totaling area 4.5 x 4.5 cm with full-thickness longitudinally oriented laceration through full-thickness muscle. Mucous layer internally is intact. We have started systematically washing out all the lacerations with normal saline and gentamicin irrigation. Then each laceration was repaired in layers starting by the muscle layer using 4-0 Vicryl sutures interrupted fashion followed by 4-0 Chromic Gut sutures for mucous layer. Both sides of the lip and gum were repaired in the fashion. Nose avulsion was cleaned and will be expected to heal as a secondary intention. Left cheek multiple lacerations were initially repaired with muscle layer 4-0 Vicryl sutures followed by multiple interrupted dermal 5-0 plain gut sutures. Bacitracin was applied to all lacerations. Patient extubated in operating room without any difficulties and transferred to recovery room in stable condition KATHARINA MONTENEGRO DO Apr 24, 2021 14:15
[2021-04-24] MEDS ORDERED: ONDANSETRON 4MG/2ML VIAL IV PRN (14:50)
[2021-04-24] MEDS ORDERED: fentaNYL 100 MCG/2 ML INJECTION (J3010) IV PRN (14:50)
[2021-04-24] MEDS ORDERED: LR 1,000 ML IV SCH (14:50)
[2021-04-24] MEDS ORDERED: oxyCODONE 5MG TAB PO PRN (14:50)
[2021-04-24 15:30] VITALS: BP 135/80
[2021-04-24 16:00] VITALS: BP 136/78
[2021-04-24 17:00] VITALS: BP 136/78
[2021-04-24] MEDS ORDERED: KETOROLAC 60MG 2ML VIAL As Ordered ONE (17:54)
[2021-04-24 18:00] VITALS: BP 146/88
[2021-04-24] MEDS: BUDESONIDE EC 3 MG CAP (ENTOCORT EC) PO SCH (18:08)
[2021-04-24] MEDS: ENOXAPARIN 40MG/0.4ML SYRINGE (J1650 PER 10MG) SC SCH (18:08)
[2021-04-24] MEDS: FINASTERIDE 5 MG TAB PO SCH (18:08)
[2021-04-24 19:00] VITALS: BP 144/88
--- NOTE | 2021-04-24 19:29 | ECGEPIP ---
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
[2021-04-24 20:00] VITALS: BP 149/84
[2021-04-24] MEDS ORDERED: ASCORBIC ACID 500 MG TAB PO SCH (21:00)
[2021-04-24] MEDS ORDERED: DICYCLOMINE 10 MG CAP PO PRN (21:00)
[2021-04-24] MEDS ORDERED: MELOXICAM (MOBIC) 7.5 MG TAB PO SCH (21:00)
[2021-04-24] MEDS ORDERED: SIMVASTATIN 40 MG TAB PO SCH (21:00)
[2021-04-24] MEDS ORDERED: TAMSULOSIN 0.4 MG CAP PO SCH (21:00)
[2021-04-24] MEDS ORDERED: MONTELUKAST 10 MG TAB PO SCH (21:00)
[2021-04-24] MEDS ORDERED: CYANOCOBALAMIN 500 MCG TAB PO SCH (21:00)
[2021-04-24] MEDS ORDERED: VITAMIN D 1,000 INTERNATIONAL UNITS TABLET PO SCH (21:00)
[2021-04-24] MEDS: NORCO, ANEXSIA 5/325MG TABLET (HYDROcodone/ACETAMINOPHEN) PO PRN (21:06)
[2021-04-25] MEDS: AMPICILLIN SOD/SULBACTAM SOD 3 GM in D5W MINI-BAG PLUS 100 ML IV SCH (05:41)
[2021-04-25] MEDS: NORCO, ANEXSIA 5/325MG TABLET (HYDROcodone/ACETAMINOPHEN) PO PRN (05:41)
[2021-04-25 06:15] VITALS: BP 153/88
[2021-04-25 06:44] LABS: HEMATOCRIT 40.1 % (42.0-52.0); HEMOGLOBIN 13.4 g/dl (13.5-17.5); MEAN CORPUSCULAR HEMOGLOBIN 30.2 pg (27.0-33.0); MEAN CORPUSCULAR HGB CONC 33.4 g/dl (32.0-36.5); MEAN CORPUSCULAR VOLUME 90.3 fl (80.0-96.0); PLATELET COUNT, AUTOMATED 222 10^3/uL (150-450); RED BLOOD COUNT 4.44 10^6/uL (4.30-6.10)
[2021-04-25 06:58] LABS: BLOOD UREA NITROGEN 13 MG/DL (7-18); CALCIUM LEVEL 8.9 MG/DL (8.5-10.1); CARBON DIOXIDE LEVEL 28 MEQ/L (21-32); CHLORIDE LEVEL 108 MEQ/L (98-107); CREATININE FOR GFR 0.86 MG/DL (0.70-1.30); GLOMERULAR FILTRATION RATE > 60.0 (>56); GLUCOSE, FASTING 128 MG/DL (70-100); MAGNESIUM LEVEL 2.1 MG/DL (1.8-2.4); POTASSIUM SERUM 3.6 MEQ/L (3.5-5.1); SODIUM LEVEL 143 MEQ/L (136-145)
[2021-04-25] MEDS: ADVAIR HFA 115/21MCG INHALER INH SCH (07:43)
[2021-04-25] MEDS ORDERED: AUGM875T28 PO (08:39)
[2021-04-25] MEDS: ENOXAPARIN 40MG/0.4ML SYRINGE (J1650 PER 10MG) SC SCH (09:00)
[2021-04-25] MEDS: OMEPRAZOLE 20 MG CAP PO SCH (09:00)
[2021-04-25] MEDS: BUDESONIDE EC 3 MG CAP (ENTOCORT EC) PO SCH (09:00)
[2021-04-25] MEDS: DULoxetine 30MG CAPSULE (CYMBALTA) PO SCH (09:00)
[2021-04-25] MEDS: FINASTERIDE 5 MG TAB PO SCH (09:00)
[2021-04-25] MEDS: GABAPENTIN 400MG CAP PO SCH (09:00)
--- NOTE | 2021-04-25 10:20 | IPNPDOC ---
Subjective General Date Seen: Apr 25, 2021 Subject Chief Complaint/History The patient is a 60-year-old male admitted with a reason for visit of Dog Bite Of Face. Patient s/p exploration and repair of facial dog bite lacerations. POD 1. Doing well. Pain controlled. Current Medications Current Medications Current Medications Medications (Trade) Dose Ordered Sig/Radha Route PRN Reason Start Time Stop Time Status Last Admin Dose Admin Acetaminophen (Tylenol Tab) 650 mg Q4H PRN PO MILD PAIN or TEMP > 101 04/24/21 10:20 04/24/21 19:31 Acetaminophen/ Hydrocodone Bitart ([place], Anexsia 5/325) 2 tab Q6HP PRN PO SEVERE PAIN (PS 8-10) 04/24/21 19:45 04/25/21 05:41 Albuterol Sulfate (Proventil, Ventolin Hfa) 2 puff Q6H PRN INH SOB/WHEEZING 04/24/21 10:20 Ampicillin Sodium/ Sulbactam Sodium 3 gm/Dextrose 100 ml @ 200 mls/hr Q6H IV 04/24/21 12:00 04/25/21 05:41 Ascorbic Acid (Vitamin C) 1,000 mg QHS PO 04/24/21 21:00 04/24/21 21:07 Budesonide (Entocort Ec) 9 mg DAILY PO 04/24/21 09:00 Cyanocobalamin (Vitamin B12) 5,000 mcg QHS PO 04/24/21 21:00 04/24/21 23:02 Dextrose/Sodium Chloride 1,000 ml @ 50 mls/hr Q20H IV 04/24/21 08:15 04/24/21 21:17 DC 04/24/21 09:10 Dicyclomine HCl (Bentyl) 20 mg QHS PRN PO CRAMPS 04/24/21 21:00 Duloxetine HCl (Cymbalta) 60 mg BID PO 04/24/21 09:00 04/24/21 21:07 Enoxaparin Sodium (Lovenox) 40 mg DAILY SC 04/24/21 09:00 04/24/21 18:08 Fentanyl Citrate (Sublimaze) 25 mcg Q5MP PRN IV PAIN LEVEL 8-10 04/24/21 14:50 04/24/21 16:50 DC Finasteride (Proscar) 5 mg DAILY PO 04/24/21 09:00 04/24/21 18:08 Gabapentin (Neurontin) 1,600 mg BID PO 04/24/21 09:00 04/24/21 21:05 Home Med (Home Med List Complete!) ASDIRECTED XX 04/24/21 09:40 04/24/21 09:47 DC Lactated Ringer's 1,000 ml @ 80 mls/hr [id number] IV 04/24/21 14:50 04/24/21 16:50 DC Meloxicam (Mobic) 15 mg QHS PO 04/24/21 21:00 04/24/21 23:03 Montelukast Sodium (Singulair) 10 mg QHS PO 04/24/21 21:00 04/24/21 21:07 Omeprazole (PriLOSEC) 40 mg BID PO 04/24/21 09:00 04/24/21 21:06 Ondansetron HCl (ZOFRAN INJection) 4 mg Q4HP PRN IV NAUSEA OR VOMITING 04/24/21 14:50 04/24/21 16:50 DC Ondansetron HCl (Zofran) 8 mg TID PRN PO NAUSEA OR VOMITING 04/24/21 10:20 04/24/21 23:04 Oxycodone HCl (Roxicodone, Oxyir) 5 mg ASDIRECTED PRN PO PAIN LEVEL 1-4 04/24/21 14:50 04/24/21 16:50 DC 04/24/21 14:56 Salmeterol Xinafoate/ Fluticasone (Advair Hfa 115/ ) 2 PUFFS RBID INH 04/24/21 08:00 04/25/21 07:43 Simvastatin (Zocor) 40 mg QHS PO 04/24/21 21:00 04/24/21 21:05 Tamsulosin HCl (Flomax) 0.8 mg QHS PO 04/24/21 21:00 04/24/21 21:07 Vitamin D (Vitamin D) 1,000 units QHS PO 04/24/21 21:00 04/24/21 21:05 Allergies Coded Allergies: No Known Allergies (Unverified , 09/01/20) Objective Physical Examination Examination GENERAL APPEARANCE:Patient seen, laying in bed, awake, alert, and oriented. Comfortable, in no acute distress. SKIN: Warm and moist. Face swollen post trauma. Improving. No active bleeding. No expanding hematoma. Absorbable sutures in place. HEENT: Normocephalic, atraumatic. [place] palpebral conjunctiva, anicteric sclerae. Lips and mucosa appear moist. NECK: Supple, no thyromegaly. No obvious jugular venous distention. LUNGS: Clear to auscultation bilaterally. No wheezing appreciated. HEART: No chest wall abnormalities. Regular rate and rhythm with no murmurs appreciated. EXTREMITIES: No edema identified. No calf tenderness. Vital Signs Vital Signs Date Time Temp Pulse Resp B/P (MAP) Pulse Ox O2 Delivery O2 Flow Rate FiO2 04/25/21 06:20 18 04/25/21 06:15 98.5 65 153/88 (109) 96 Room Air I&Os I&O- Last 24 Hours up to 6 AM 04/25/21 06:00 Intake Total 3040 ml Output Total 701 ml Balance 2339 ml Laboratory Data Labs 24H Laboratory Tests 2 04/25/21 06:31: Nucleated Red Blood Cells % (auto) 0.0, Anion Gap 7L, Glomerular Filtration Rate > 60.0, Calcium Level 8.9, Magnesium Level 2.1 CBC/BMP Laboratory Tests 04/25/21 06:31 Impression S/p dog bite to the face. Stable for discharge. Instruction given to patient. Do not drink very hot or very cold fluids. Soft diet for 7 days. Apply bacitracin to all incisions twice a day. May wash face with tap water. Continue with Augmentin for 10 days total. Follow-up in plastic surgery next week Plan / VTE VTE Prophylaxis Ordered?: Yes KATHARINA MONTENEGRO DO Apr 25, 2021 10:20
--- NOTE | 2021-04-25 13:18 | DS.PDOC ---
Discharge Summary General Date of Admission Apr 24, 2021 at 10:17 Date of Discharge 04/25/2021 Attending Physician: SAADIA BLUM MD Discharge Summary PROCEDURES PERFORMED DURING STAY: Exploration lacerations face and lip with repair of divided structures by Dr. Muniz on 04/24/2021 ADMITTING DIAGNOSES: Dog bite with lacerations to face and lip DISCHARGE DIAGNOSES: Dog bite with lacerations to face and lip Microscopic colitis Chronic back and neck pain GERD Asthma COMPLICATIONS/CHIEF COMPLAINT: Dog Bite Of Face. HISTORY OF PRESENT ILLNESS: 60 yo M with a history of microscopic colitis on budesonide and follows with Dr. Gardner, chronic back and neck pain, GERD and asthma who presented to the ED after his 2y old dog had a seizure and bit him in the face in the midst of its post ictal confusion? He sustained several lacerations with one very large one that was macerated, bleeding and top lip was swollen and dangling. Plastic surgery was consulted from the ED and recommended admission to medicine, IV antibiotics and surgical exploration lacerations face and lip with repair of divided structures. His ROS was otherwise grossly negative except for chronic back pain and the new facial pain since the bite. HOSPITAL COURSE: he was started on unasyn and had debridement and lacerations repaired on 04/24/2021. He otherwise did well postop and he is now being discharged home to complete 10d of augmentin with outpatient follow up with plastics and PCP within 1 week. DISCHARGE MEDICATIONS: Please see below. ALLERGIES: Please see below. PHYSICAL EXAMINATION ON DISCHARGE: VITAL SIGNS: Please see below. GENERAL APPEARANCE: NAD, bandaging across top lip HEENT: NCAT, EOMI, s/p stitching of lacerations with dressing in place CARDIOVASCULAR: RRRm, no m/r/g LUNGS: CTAB ABDOMEN: Normoactive sounds, soft, NTND MUSCULOSKELETAL: 5/5 strength and tone throughout EXTREMITIES: WWP, no edema, 2+ DP pulses NEUROLOGICAL: nonfocal examination, did not test CN 5-12 PSYCHIATRIC: AOx3 LABORATORY DATA: Please see below. IMAGING: Maxillofacial CT: Orbital cavity: Orbits are normal. Globes are unremarkable. 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 Stenosis of the spinal canal neural foramina at several levels. Paranasal sinuses: Retention cyst the right maxillary sinus. Soft tissues: Extensive laceration of the upper lip. IMPRESSION: Extensive laceration of the upper lip. No acute fractures. CXR: There is no acute infiltrate or pulmonary edema. Lungs are clear. The heart is not significantly enlarged. The mediastinal silhouette is unremarkable. The visualized osseous structures are intact. IMPRESSION: No acute pulmonary disease. PROGNOSIS: Excellent ACTIVITY: As tolerated DIET: As tolerated DISCHARGE PLAN: Home with augmentin, PCP and plastics within 7d DISPOSITION: Home with augmentin, PCP and plastics within 7d DISCHARGE INSTRUCTIONS: Home with augmentin, PCP and plastics within 7d ITEMS TO FOLLOWUP ON ON OUTPATIENT: Dog bite lacerations DISCHARGE CONDITION: Stable TIME SPENT ON DISCHARGE: 45 minutes. Vital Signs/I&Os Vital Signs Date Time Temp Pulse Resp B/P (MAP) Pulse Ox O2 Delivery O2 Flow Rate FiO2 04/25/21 06:20 18 04/25/21 06:15 98.5 65 153/88 (109) 96 Room Air I&O- Last 24 Hours up to 6 AM 04/25/21 06:00 Intake Total 3040 ml Output Total 701 ml Balance 2339 ml Laboratory Data Labs 24H Laboratory Tests 2 04/24/21 08:59: Anion Gap 4L, Glomerular Filtration Rate > 60.0, Calcium Level 8.8 04/24/21 09:07: Immature Granulocyte % (Auto) 0.6, Neutrophils (%) (Auto) 68.1H, Lymphocytes (%) (Auto) 21.2L, Monocytes (%) (Auto) 7.2, Eosinophils (%) (Auto) 2.4, Basophils (%) (Auto) 0.5, Neutrophils # (Auto) 7.8, Lymphocytes # (Auto) 2.4, Monocytes # (Auto) 0.8, Eosinophils # (Auto) 0.3, Basophils # (Auto) 0.1, Nucleated Red Blood Cells % (auto) 0.0, Coronavirus (COVID-19)(PCR) NEGATIVE, Influenza Type A (RT-PCR) NEGATIVE, Influenza Type B (RT-PCR) NEGATIVE, Respiratory Syncytial Virus (PCR) NEGATIVE 04/25/21 06:31: Anion Gap 7L, Glomerular Filtration Rate > 60.0, Calcium Level 8.9, Nucleated Red Blood Cells % (auto) 0.0, Magnesium Level 2.1 CBC/BMP Laboratory Tests 04/24/21 08:59 04/24/21 09:07 04/25/21 06:31 Discharge Medications Scheduled Amoxicillin/Potassium Clav (Augmentin 875-125 Tablet) 1 Each Tablet, 1 TAB PO BID Ascorbic Acid (C-1000) 1,000 Mg Tablet.er, 1,000 MG PO QHS, (Reported) Budesonide (Budesonide EC) 3 Mg Capdr...er, 9 MG PO DAILY, (Reported) Cholecalciferol (Vitamin D3) (Vitamin D3) 1,000 Unit Tablet, 1,000 UNITS PO QHS, (Reported) Cyanocobalamin (Vitamin B-12) (Vitamin B-12) 5,000 Mcg Tab.subl, 5,000 MCG SL QHS, (Reported) Duloxetine Hcl (Cymbalta) 60 Mg Capsule.dr, 60 MG PO BID, (Reported) Finasteride (Finasteride) 5 Mg Tab, 5 MG PO DAILY, (Reported) Gabapentin (Gabapentin) 800 Mg Tab, 1,600 MG PO BID, (Reported) Hydrocodone/Acetaminophen (Hydrocodone-Acetamin 10-325 mg) 1 Tab Tab, 1 TAB PO QID, (Reported) Meloxicam (Meloxicam) 15 Mg Tab, 15 MG PO QHS, (Reported) Montelukast Sodium (Montelukast Sodium) 10 Mg Tablet, 10 MG PO QHS, (Reported) Omeprazole (Omeprazole) 40 Mg Cap, 40 MG PO BID, (Reported) Salmeterol/Fluticasone (Advair 250-50 Diskus) 1 Each Blst.w.dev, 1 PUFF INH BID, (Reported) Simvastatin (Simvastatin) 40 Mg Tab, 40 MG PO QHS, (Reported) Tamsulosin HCl (Flomax) 0.4 Mg Capsule, 0.8 MG PO QHS, (Reported) once daily 1/2 hour following the same meal each day Scheduled PRN Albuterol Sulfate (Ventolin Hfa) 108 Mcg/Act Aer, 2 PUFFS INH Q6H PRN for SOB/WHEEZING, (Reported) Dicyclomine HCl (Dicyclomine HCl) 20 Mg Tablet, 20 MG PO QHS PRN for CRAMPS, (Reported) Ondansetron HCl (Ondansetron HCl) 8 Mg Tab, 8 MG PO TID PRN for NAUSEA OR VOMITING, (Reported) Pseudoephedrine HCl (Sudafed) 30 Mg Tablet, 30 MG PO Q6H PRN for CONGESTION, (Reported) Sildenafil Citrate (Viagra) 100 Mg Tab, 100 MG PO ASDIRECTED PRN for ERECTILE DYSFUNCTION, (Reported) Allergies Coded Allergies: No Known Allergies (Unverified , 09/01/20) SAADIA BLUM MD Apr 25, 2021 08:38
== END 2021-04-25 10:00 | disposition home or self-care (01) ==
LOC: M ED 07:20 → M ED INP 10:17 → ENRESERV 10:35 → M MSPAV 15:30
PROVIDERS: ADMIT Internal Medicine; ATTEND Internal Medicine
DX: S01.85XA Open bite of other part of head, initial encounter (principal); W54.0XXA Bitten by dog, initial encounter; Y92.89 Other specified places as the place of occurrence of the external cause; Y93.9 Activity, unspecified; Y99.9 Unspecified external cause status; F17.218 Nicotine dependence, cigarettes, with other nicotine-induced disorders; J45.909 Unspecified asthma, uncomplicated; M54.2 Cervicalgia; M54.50 Low back pain, unspecified; K21.9 Gastro-esophageal reflux disease without esophagitis; Z79.899 Other long term (current) drug therapy
CPT/HCPCS: 12013; 13152; 36415; 70486; 71045; 80048; 83735; 85025; 85027; 87631; 88304; 90471; 90715; 93005; 94640; 96365; 96366; 96375; 99284; G0378; J0131; J0690; J1100; J1170; J1650; J2250; J2270; J2370; J2405; J2765; J3010

== ENCOUNTER → 2021-08-06 | Outpatient (CLI) | payer MEDICARE, OTHER ==
[~2021-08-06] MED LIST changes: +AUGM875T28 PO; +C-101TAB PO; -MONT10TA10; -MONT10TA10 PO; +MONT10TA97; +MONT10TA97 PO; +ONDA-84 PO; -ONDA8TAB10 PO; +[UNRECOGNIZED DRUG - CODE] SL
== END ==
LOC: M SOG 15:25
PROVIDERS: ATTEND Orthopaedic Surgery Sports Medicine
DX: M85.68 Other cyst of bone, other site (principal); M25.551 Pain in right hip

== ENCOUNTER → 2021-08-20 | Outpatient (CLI) | payer MEDICARE, OTHER ==
[~2021-08-20] MED LIST changes: -D31000TA2 PO; +ISOVUE-300 61% 50ML VIAL As Ordered ONE; +LIDOCAINE 1% MDV 20ML VIAL As Ordered ONE; +VITA100093 PO; +methylPREDNISolone SUSP 40MG/ML 1ML VIAL (DEPO MEDROL) As Ordered ONE
== END ==
LOC: M RADPRO 13:06
PROVIDERS: ATTEND Orthopaedic Surgery Sports Medicine
DX: M16.11 Unilateral primary osteoarthritis, right hip (principal)
CPT/HCPCS: 20610; 77002; J1030; Q9967

== ENCOUNTER → 2022-09-04 | Outpatient (CLI) | payer MEDICARE ==
[~2022-09-04] MED LIST changes: +GASTROGRAFIN SOLUTION 30ML As Ordered ONE; -ISOVUE-300 61% 50ML VIAL As Ordered ONE; +ISOVUE-370 76% 100ML VIAL As Ordered ONE; -LIDOCAINE 1% MDV 20ML VIAL As Ordered ONE; -methylPREDNISolone SUSP 40MG/ML 1ML VIAL (DEPO MEDROL) As Ordered ONE
== END ==
LOC: M RAD 09:28
PROVIDERS: ATTEND Internal Medicine Gastroenterology
DX: R19.7 Diarrhea, unspecified (principal); R63.4 Abnormal weight loss; K52.3 Indeterminate colitis
CPT/HCPCS: 74177; Q9963; Q9967

== ENCOUNTER → 2022-09-13 | Outpatient (REF) | payer MEDICARE, OTHER ==
[~2022-09-13] MED LIST changes: +CLAR10CA3 PO; -GASTROGRAFIN SOLUTION 30ML As Ordered ONE; -ISOVUE-370 76% 100ML VIAL As Ordered ONE; +SILD20TA11 PO
== END ==
LOC: M LAB REF 13:48
PROVIDERS: ATTEND Internal Medicine Gastroenterology
DX: K52.839 Microscopic colitis, unspecified (principal)

== ENCOUNTER → 2022-09-17 | Outpatient (CLI) | payer MEDICARE ==
[2022-09-17 15:29] LABS: BASO # 0.1 10^3/uL (0.0-0.2); BASO % 0.8 % (0.0-1.0); EOS # 0.3 10^3/uL (0.0-0.5); EOS % 3.6 % (0.0-3.0); HEMATOCRIT 41.9 % (42.0-52.0); HEMOGLOBIN 13.9 g/dl (13.5-17.5); LYMPH # 1.8 10^3/uL (1.5-5.0); LYMPH % 20.8 % (24.0-44.0); MEAN CORPUSCULAR HEMOGLOBIN 30.3 pg (27.0-33.0); MEAN CORPUSCULAR HGB CONC 33.2 g/dl (32.0-36.5); MEAN CORPUSCULAR VOLUME 91.3 fl (80.0-96.0); MONO # 0.7 10^3/uL (0.0-0.8); MONO % 7.7 % (2.0-8.0); NEUTROPHILS # 5.6 10^3/uL (1.5-8.5); NEUTROPHILS % 66.5 % (36.0-66.0); PLATELET COUNT, AUTOMATED 222 10^3/uL (150-450); RED BLOOD COUNT 4.59 10^6/uL (4.30-6.10); WHITE BLOOD COUNT 8.4 10^3/uL (4.0-10.0)
[2022-09-17 16:38] LABS: IMMUNOGLOBULIN A 184.6 MG/DL (40-350)
[2022-09-17 16:40] LABS: FREE T4 1.06 NG/DL (0.89-1.76)
[2022-09-17 17:17] LABS: ERYTHROCYTE SEDIMENTATION RATE 9 mm/hr (0-20)
[2022-09-17 17:26] LABS: ALBUMIN 3.5 G/DL (3.2-5.2); ALKALINE PHOSPHATASE 61 U/L (46-116); ALT/SGPT 10 U/L (7.0-40); AST/SGOT 11 U/L (<34); BILIRUBIN,TOTAL 0.3 MG/DL (0.3-1.2); BLOOD UREA NITROGEN 14 MG/DL (9-23); CALCIUM LEVEL 8.6 MG/DL (8.3-10.6); CARBON DIOXIDE LEVEL 30 MMOL/L (20-31); CHLORIDE LEVEL 106 MMOL/L (98-107); CREATININE FOR GFR 0.87 MG/DL (0.70-1.30); GLOMERULAR FILTRATION RATE > 60.0 (>49); GLUCOSE, FASTING 93 MG/DL (74-106); POTASSIUM SERUM 4.5 MMOL/L (3.5-5.1); SODIUM LEVEL 140 MMOL/L (136-145); THYROID STIMULATING HORMONE 1.151 uIU/ML (0.55-4.78); TOTAL PROTEIN 6.2 G/DL (5.7-8.2)
== END ==
LOC: M LAB 14:47
PROVIDERS: ATTEND Internal Medicine Gastroenterology
DX: K86.81 Exocrine pancreatic insufficiency (principal); R63.4 Abnormal weight loss

== ENCOUNTER 2022-10-01 10:39 | Day surgery (SDC) | payer MEDICARE ==
[~2022-10-01] VITALS: Ht 185.4 cm; Wt 88.5 kg
[2022-10-01] MEDS ORDERED: LIDOCAINE 2% 100MG/5ML SDV (FOR ANES.) As Ordered ONE (12:00)
[2022-10-01] MEDS ORDERED: propofoL 200 MG/20 ML VIAL As Ordered ONE (12:00)
[2022-10-01] MEDS ORDERED: fentaNYL 100 MCG/2 ML INJECTION As Ordered ONE (12:01)
[2022-10-01 13:10] VITALS: BP 133/83
== END 2022-10-01 13:14 | disposition home or self-care (01) ==
LOC: M OPP 10:39
PROVIDERS: ATTEND Internal Medicine Gastroenterology
DX: K63.89 Other specified diseases of intestine (principal); K52.839 Microscopic colitis, unspecified; K64.8 Other hemorrhoids; K52.9 Noninfective gastroenteritis and colitis, unspecified; D12.5 Benign neoplasm of sigmoid colon; R63.4 Abnormal weight loss; R10.9 Unspecified abdominal pain; K22.89 Other specified disease of esophagus
CPT/HCPCS: 43239; 45380; 45385; 88305; J3010

== ENCOUNTER 2022-10-14 10:43 | Emergency (ER) | payer MEDICARE ==
[~2022-10-14] VITALS: Ht 182.9 cm; Wt 90.9 kg
[2022-10-14] MEDS ORDERED: LIDOCAINE 5% (LIDODERM) PATCH TD ONE (11:30)
[2022-10-14] MEDS ORDERED: diazePAM 5MG TABLET PO ONE (11:30)
[2022-10-14] MEDS ORDERED: methocarbamoL 750 MG TAB PO ONE (11:30)
[2022-10-14] MEDS ORDERED: MORPHINE 4 MG/ML 1ML VIAL IV ONE (12:35)
[2022-10-14] MEDS ORDERED: KETOROLAC 30 MG/ML 1ML VIAL IV ONE (13:35)
[2022-10-14] MEDS ORDERED: HYDROMORPHONE HCL 0.5 MG/ 0.5 ML SYRINGE IV ONE (15:00)
[2022-10-14] MEDS ORDERED: diazePAM 10MG/2ML SYRINGE IV ONE (15:05)
[2022-10-14] MEDS ORDERED: ONDANSETRON 4MG 2ML VIAL IV ONE (16:25)
[2022-10-14 20:58] VITALS: BP 161/85
== END 2022-10-14 21:16 | disposition home or self-care (01) ==
LOC: M ED 10:43
DX: M54.32 Sciatica, left side (principal); F41.9 Anxiety disorder, unspecified; E78.5 Hyperlipidemia, unspecified; J45.909 Unspecified asthma, uncomplicated; K21.9 Gastro-esophageal reflux disease without esophagitis; K58.9 Irritable bowel syndrome, unspecified; Z87.442 Personal history of urinary calculi; Z79.52 Long term (current) use of systemic steroids; Z79.891 Long term (current) use of opiate analgesic; Z79.83 Long term (current) use of bisphosphonates; Z79.899 Other long term (current) drug therapy
CPT/HCPCS: 72148; 93971; 96372; 96374; 96375; 99284; J1100; J1170; J1885; J2405; J3360

== ENCOUNTER → 2022-10-17 | Outpatient (CLI) | payer MEDICARE | LOC: M SOG 09:15 | PROVIDERS: ATTEND Orthopaedic Surgery | DX: M25.531 Pain in right wrist (principal); M47.9 Spondylosis, unspecified ==

== ENCOUNTER → 2022-11-21 | Outpatient (CLI) | payer OTHER ==
[2022-11-21 17:45] LABS: BLOOD UREA NITROGEN 23 MG/DL (9-23); CREATININE FOR GFR 0.83 MG/DL (0.70-1.30); GLOMERULAR FILTRATION RATE > 60.0 (>49)
== END ==
LOC: M WUC 13:25
PROVIDERS: ATTEND Internal Medicine Gastroenterology
DX: K86.81 Exocrine pancreatic insufficiency (principal); E80.29 Other porphyria

== ENCOUNTER → 2022-11-22 | Outpatient (CLI) | payer OTHER ==
[~2022-11-22] MED LIST changes: +PROHANCE 279.3MG/ML 15ML VIAL ONE; +PROHANCE 279.3MG/ML 5ML VIAL ONE
== END ==
LOC: M PLAIMG 10:53
PROVIDERS: ATTEND Internal Medicine Gastroenterology
DX: K86.81 Exocrine pancreatic insufficiency (principal)
CPT/HCPCS: 74183; A9576

== ENCOUNTER → 2023-01-08 | Outpatient (REF) | payer MEDICARE ==
[~2023-01-08] MED LIST changes: +DICY-61; -DICY10CA13; -PROHANCE 279.3MG/ML 15ML VIAL ONE; -PROHANCE 279.3MG/ML 5ML VIAL ONE
[2023-01-08 16:28] LABS: HEMATOCRIT 40.8 % (42.0-52.0); HEMOGLOBIN 13.4 g/dl (13.5-17.5); MEAN CORPUSCULAR HGB CONC 32.8 g/dl (32.0-36.5); MEAN CORPUSCULAR VOLUME 91.5 fl (80.0-96.0); PLATELET COUNT, AUTOMATED 254 10^3/uL (150-450); RED BLOOD COUNT 4.46 10^6/uL (4.30-6.10); WHITE BLOOD COUNT 10.1 10^3/uL (4.0-10.0)
[2023-01-08 17:01] LABS: HEMOGLOBIN A1c 5.6 % (4.0-6.0)
[2023-01-08 17:02] LABS: FREE T4 1.09 NG/DL (0.89-1.76); THYROID STIMULATING HORMONE 1.356 uIU/ML (0.55-4.78)
[2023-01-08 17:03] LABS: FOLATE 10.24 NG/ML (>5.4)
[2023-01-08 17:04] LABS: ALBUMIN 3.7 G/DL (3.2-5.2); ALKALINE PHOSPHATASE 62 U/L (46-116); ALT/SGPT 11 U/L (7.0-40); AST/SGOT 9 U/L (<34); BILIRUBIN,TOTAL 0.3 MG/DL (0.3-1.2); BLOOD UREA NITROGEN 22 MG/DL (9-23); CALCIUM LEVEL 9.1 MG/DL (8.3-10.6); CARBON DIOXIDE LEVEL 27 MMOL/L (20-31); CHLORIDE LEVEL 106 MMOL/L (98-107); CHOLESTEROL LEVEL 179 MG/DL (<200); CHOLESTEROL RISK RATIO 2.48 (<5); CREATININE FOR GFR 1.04 MG/DL (0.70-1.30); GLOMERULAR FILTRATION RATE > 60.0 (>49); GLUCOSE, FASTING 104 MG/DL (74-106); LDL CHOLESTEROL 90.2 MG/DL (<100); POTASSIUM SERUM 4.5 MMOL/L (3.5-5.1); SODIUM LEVEL 140 MMOL/L (136-145); TOTAL PROTEIN 6.5 G/DL (5.7-8.2); TRIGLYCERIDES LEVEL 84 MG/DL (<150)
[2023-01-08 17:07] LABS: VITAMIN B12 LEVEL > 2000 PG/ML (211-911)
== END ==
LOC: M SFHCADAM 13:47
PROVIDERS: ATTEND Family Medicine
DX: E78.2 Mixed hyperlipidemia (principal); D51.9 Vitamin B12 deficiency anemia, unspecified; F32.9 Major depressive disorder, single episode, unspecified; Z12.5 Encounter for screening for malignant neoplasm of prostate; Z13.1 Encounter for screening for diabetes mellitus; G89.21 Chronic pain due to trauma; Z79.891 Long term (current) use of opiate analgesic
CPT/HCPCS: 80053; 80061; 80307; 82607; 82746; 83036; 84439; 84443; 85027; G0103

== ENCOUNTER → 2023-01-08 | Outpatient (REF) | payer MEDICARE | LOC: M LABDRWAD 16:30 | PROVIDERS: ATTEND Internal Medicine Gastroenterology | DX: E80.20 Unspecified porphyria (principal) ==

== ENCOUNTER → 2023-02-08 | Outpatient (CLI) | payer MEDICARE ==
[2023-02-08 14:23] LABS: CA19-9 TUMOR MARKER,CARBOHYDRA 38.5 U/ML (<35.0)
== END ==
LOC: M LAB 13:10
PROVIDERS: ATTEND Internal Medicine Gastroenterology
DX: K86.89 Other specified diseases of pancreas (principal)

== ENCOUNTER → 2023-09-26 | Outpatient (CLI) | payer MEDICARE ==
[~2023-09-26] MED LIST changes: -PSEU30TA86 PO; +PSEU30TA87 PO
== END ==
LOC: M PLARAD 13:12
PROVIDERS: ATTEND Internal Medicine Gastroenterology
DX: D37.8 Neoplasm of uncertain behavior of other specified digestive organs (principal); K86.81 Exocrine pancreatic insufficiency

== ENCOUNTER 2023-12-08 09:20 | Day surgery (SDC) | payer MEDICARE ==
[~2023-12-08] VITALS: Ht 185.4 cm; Wt 88.0 kg
[~2023-12-08 09:20] MED LIST changes: +ALBU8.5H INH; +BUDE3CAP5 PO; +CREO3600 PO; +NS 1,000 ML IV ONE
[2023-12-08] MEDS ORDERED: propofoL 200 MG/20 ML VIAL As Ordered ONE (10:31)
[2023-12-08 10:53] VITALS: TEMP 98.8
[2023-12-08 11:15] VITALS: BP 135/90; O2SAT 97
== END 2023-12-08 11:22 | disposition home or self-care (01) ==
LOC: M OPP 09:20
PROVIDERS: ATTEND Internal Medicine Gastroenterology
DX: K29.40 Chronic atrophic gastritis without bleeding (principal); K22.89 Other specified disease of esophagus; R12 Heartburn; Z79.1 Long term (current) use of non-steroidal anti-inflammatories (NSAID); Z79.52 Long term (current) use of systemic steroids; Z79.891 Long term (current) use of opiate analgesic; Z79.899 Other long term (current) drug therapy

== ENCOUNTER 2024-04-24 13:32 | Emergency (ER) | payer OTHER ==
[~2024-04-24] VITALS: Ht 185.4 cm; Wt 87.8 kg
[~2024-04-24 13:32] MED LIST changes: +GABA-1635 PO; -GABA800T4 PO; -NS 1,000 ML IV ONE; -VITA500C19 PO; +VITA500C22 PO
[2024-04-24 13:35] VITALS: O2SAT 96
[2024-04-24] MEDS: BOOSTRIX VACCINE (TETANUS/DIPHTH/ACEL. PERTUSSIS) 0.5ML SYR IM.IMMUN ONE (14:45)
[2024-04-24] MEDS: LIDOCAINE 2% MDV 20ML VIAL SC ONE (14:46)
[2024-04-24] MEDS ORDERED: CEPH500C PO (15:50)
[2024-04-24] MEDS ORDERED: BACI500O8 TOP (15:53)
[2024-04-24] MEDS: CEPHALEXIN 500 MG CAP PO ONE (15:57)
[2024-04-24 16:01] VITALS: BP 123/89; TEMP 97.2
== END 2024-04-24 16:04 | disposition home or self-care (01) ==
LOC: M ED 13:32
DX: S61.012A Laceration without foreign body of left thumb without damage to nail, initial encounter (principal); W27.8XXA Contact with other nonpowered hand tool, initial encounter; Z23 Encounter for immunization; Y92.009 Unspecified place in unspecified non-institutional (private) residence as the place of occurrence of the external cause; Y93.89 Activity, other specified; Y99.9 Unspecified external cause status; Z79.52 Long term (current) use of systemic steroids; Z79.83 Long term (current) use of bisphosphonates; Z79.899 Other long term (current) drug therapy; Z79.2 Long term (current) use of antibiotics

== ENCOUNTER → 2024-07-08 | Outpatient (REF) | payer OTHER ==
[~2024-07-08] MED LIST changes: -ADV250INH INH; +ADVA1AER9 INH; +BACI500O8 TOP
[2024-07-08 18:33] LABS: HEMATOCRIT 41.5 % (42.0-52.0); HEMOGLOBIN 13.7 g/dl (13.5-17.5); MEAN CORPUSCULAR HEMOGLOBIN 29.4 pg (27.0-33.0); MEAN CORPUSCULAR VOLUME 89.1 fl (80.0-96.0); PLATELET COUNT, AUTOMATED 341 10^3/uL (150-450); RED BLOOD COUNT 4.66 10^6/uL (4.30-6.10); WHITE BLOOD COUNT 10.6 10^3/uL (4.0-10.0)
[2024-07-08 18:35] LABS: ALBUMIN 3.6 G/DL (3.2-5.2); ALKALINE PHOSPHATASE 74 U/L (40-129); ALT/SGPT 16 U/L (7.0-40); AST/SGOT 13 U/L (<34); BILIRUBIN,TOTAL 0.3 MG/DL (0.3-1.2); BLOOD UREA NITROGEN 19 MG/DL (9-23); CALCIUM LEVEL 9.3 MG/DL (8.3-10.6); CARBON DIOXIDE LEVEL 27 MMOL/L (20-31); CHLORIDE LEVEL 109 MMOL/L (98-107); CHOLESTEROL LEVEL 199 MG/DL (<200); CHOLESTEROL RISK RATIO 2.51 (<5); CREATININE FOR GFR 0.91 MG/DL (0.70-1.30); GLOMERULAR FILTRATION RATE > 60.0 (>49); GLUCOSE, FASTING 94 MG/DL (74-106); POTASSIUM SERUM 4.2 MMOL/L (3.5-5.1); PSA SCREENING 0.18 NG/ML (< 4.00); SODIUM LEVEL 142 MMOL/L (136-145); TOTAL PROTEIN 6.8 G/DL (5.7-8.2); TRIGLYCERIDES LEVEL 110 MG/DL (<150)
[2024-07-08 18:39] LABS: THYROID STIMULATING HORMONE 3.695 uIU/ML (0.55-4.78)
[2024-07-08 18:42] LABS: FREE T4 1.18 NG/DL (0.89-1.76)
[2024-07-08 18:45] LABS: VITAMIN B12 LEVEL > 2000 PG/ML (211-911)
[2024-07-08 18:51] LABS: HEMOGLOBIN A1c 5.5 % (4.0-6.0)
== END ==
LOC: M SFHCADAM 11:35
PROVIDERS: ATTEND Family Medicine
DX: E78.2 Mixed hyperlipidemia (principal); D51.9 Vitamin B12 deficiency anemia, unspecified; K40.90 Unilateral inguinal hernia, without obstruction or gangrene, not specified as recurrent; Z13.1 Encounter for screening for diabetes mellitus; Z12.5 Encounter for screening for malignant neoplasm of prostate
CPT/HCPCS: 80053; 80061; 82607; 83036; 84439; 84443; 85027; G0103

== ENCOUNTER → 2024-08-18 | Outpatient (CLI) | payer OTHER | LOC: M SOG 07:53 | PROVIDERS: ATTEND Orthopaedic Surgery | DX: M25.561 Pain in right knee (principal); M25.562 Pain in left knee ==

== ENCOUNTER → 2024-08-31 | Outpatient (CLI) | payer OTHER ==
[~2024-08-31] MED LIST changes: +PROHANCE 279.3MG/ML 15ML VIAL ONE; +PROHANCE 279.3MG/ML 5ML VIAL ONE
== END ==
LOC: M PLAIMG 13:59
PROVIDERS: ATTEND Internal Medicine Gastroenterology
DX: D37.8 Neoplasm of uncertain behavior of other specified digestive organs (principal)
CPT/HCPCS: 74183; A9576

== ENCOUNTER 2024-09-14 22:30 | Emergency (ER) | payer OTHER ==
[~2024-09-14] VITALS: Ht 185.4 cm; Wt 87.3 kg
[~2024-09-14 22:30] MED LIST changes: -PROHANCE 279.3MG/ML 15ML VIAL ONE; -PROHANCE 279.3MG/ML 5ML VIAL ONE
[2024-09-14 22:52] LABS: BASO # 0.1 10^3/uL (0.0-0.2); BASO % 0.5 % (0.0-1.0); EOS # 0.2 10^3/uL (0.0-0.5); EOS % 2.1 % (0.0-3.0); HEMATOCRIT 39.9 % (42.0-52.0); HEMOGLOBIN 13.3 g/dl (13.5-17.5); LYMPH # 2.7 10^3/uL (1.5-5.0); LYMPH % 23.4 % (24.0-44.0); MEAN CORPUSCULAR HEMOGLOBIN 29.1 pg (27.0-33.0); MEAN CORPUSCULAR HGB CONC 33.3 g/dl (32.0-36.5); MEAN CORPUSCULAR VOLUME 87.3 fl (80.0-96.0); MONO # 0.7 10^3/uL (0.0-0.8); MONO % 6.1 % (2.0-8.0); NEUTROPHILS # 7.7 10^3/uL (1.5-8.5); NEUTROPHILS % 67.3 % (36.0-66.0); PLATELET COUNT, AUTOMATED 328 10^3/uL (150-450); RED BLOOD COUNT 4.57 10^6/uL (4.30-6.10); WHITE BLOOD COUNT 11.5 10^3/uL (4.0-10.0)
[2024-09-14 23:20] LABS: LIPASE 28 U/L (12-53)
[2024-09-14 23:21] LABS: KETONE, URINE AUTO RFX TRACE mg/dL (NEGATIVE); MUCUS, URINE RFX SMALL (NEGATIVE); NITRITE, URINE AUTO RFX NEGATIVE (NEGATIVE); RBC, URINE AUTO RFX 12 /HPF (0-3); SQUAM EPITHELIAL CELL UR AURFX 1 /HPF (0-6); WBC, URINE AUTO RFX 2 /HPF (0-3)
[2024-09-14 23:22] LABS: ALBUMIN 3.6 G/DL (3.2-5.2); ALKALINE PHOSPHATASE 69 U/L (40-129); ALT/SGPT 9 U/L (7.0-40); AST/SGOT 10 U/L (<34); BILIRUBIN,DIRECT < 0.1 MG/DL (<0.4); BILIRUBIN,TOTAL 0.2 MG/DL (0.3-1.2); BLOOD UREA NITROGEN 17 MG/DL (9-23); CALCIUM LEVEL 9.1 MG/DL (8.3-10.6); CARBON DIOXIDE LEVEL 27 MMOL/L (20-31); CHLORIDE LEVEL 106 MMOL/L (98-107); CREATININE FOR GFR 0.92 MG/DL (0.70-1.30); GLOMERULAR FILTRATION RATE > 60.0 (>49); GLUCOSE, FASTING 122 MG/DL (74-106); POTASSIUM SERUM 4.4 MMOL/L (3.5-5.1); SODIUM LEVEL 141 MMOL/L (136-145); TOTAL PROTEIN 6.9 G/DL (5.7-8.2)
[2024-09-14 23:32] LABS: LEUKOCYTE ESTERASE UR AUTO RFX TRACE (NEGATIVE)
[2024-09-14] MEDS: NS 500 ML IV ONE (23:55)
[2024-09-15] MEDS: ONDANSETRON 4MG 2ML VIAL IV ONE
[2024-09-15] MEDS: KETOROLAC 30 MG/ML 1ML VIAL IV ONE (00:09)
[2024-09-15] MEDS ORDERED: TRAM50TA2 PO (02:37)
[2024-09-15 02:58] VITALS: BP 141/86; TEMP 97.4; O2SAT 96
[2024-09-15] MEDS: traMADol 50 MG TAB (HOME DOSE PACK) PO ONE (03:01)
[2024-09-16] MEDS ORDERED: KETO10TAB PO (18:32)
== END 2024-09-15 03:16 | disposition home or self-care (01) ==
LOC: M ED 22:30
DX: R10.9 Unspecified abdominal pain (principal); N20.0 Calculus of kidney; K59.00 Constipation, unspecified; K21.9 Gastro-esophageal reflux disease without esophagitis; K58.9 Irritable bowel syndrome, unspecified; N40.0 Benign prostatic hyperplasia without lower urinary tract symptoms; Z87.442 Personal history of urinary calculi; Z79.52 Long term (current) use of systemic steroids; Z79.83 Long term (current) use of bisphosphonates; Z79.899 Other long term (current) drug therapy; Z79.2 Long term (current) use of antibiotics
CPT/HCPCS: 74176; 80048; 80076; 81001; 83690; 85025; 87086; 96361; 96374; 96375; 99284; J1885; J2405

== ENCOUNTER 2024-09-16 13:09 | Emergency (ER) | payer OTHER ==
[~2024-09-16] VITALS: Ht 185.4 cm; Wt 87.3 kg
[~2024-09-16 13:09] MED LIST changes: +TRAM50TA2 PO
[2024-09-16 13:52] LABS: BASO # 0.1 10^3/uL (0.0-0.2); BASO % 0.7 % (0.0-1.0); EOS # 0.3 10^3/uL (0.0-0.5); EOS % 2.1 % (0.0-3.0); HEMATOCRIT 36.9 % (42.0-52.0); HEMOGLOBIN 12.3 g/dl (13.5-17.5); LYMPH # 2.1 10^3/uL (1.5-5.0); MEAN CORPUSCULAR HEMOGLOBIN 29.4 pg (27.0-33.0); MEAN CORPUSCULAR HGB CONC 33.3 g/dl (32.0-36.5); MEAN CORPUSCULAR VOLUME 88.1 fl (80.0-96.0); MONO # 0.9 10^3/uL (0.0-0.8); MONO % 7.3 % (2.0-8.0); NEUTROPHILS # 9.5 10^3/uL (1.5-8.5); NEUTROPHILS % 73.3 % (36.0-66.0); PLATELET COUNT, AUTOMATED 295 10^3/uL (150-450); RED BLOOD COUNT 4.19 10^6/uL (4.30-6.10); WHITE BLOOD COUNT 12.9 10^3/uL (4.0-10.0)
[2024-09-16 14:09] LABS: LIPASE 19 U/L (12-53)
[2024-09-16 14:12] LABS: ALBUMIN 3.6 G/DL (3.2-5.2); ALKALINE PHOSPHATASE 68 U/L (40-129); ALT/SGPT 10 U/L (7.0-40); AST/SGOT 10 U/L (<34); BILIRUBIN,DIRECT 0.1 MG/DL (<0.4); BILIRUBIN,TOTAL 0.4 MG/DL (0.3-1.2); BLOOD UREA NITROGEN 15 MG/DL (9-23); CALCIUM LEVEL 8.8 MG/DL (8.3-10.6); CARBON DIOXIDE LEVEL 27 MMOL/L (20-31); CHLORIDE LEVEL 103 MMOL/L (98-107); CREATININE FOR GFR 0.85 MG/DL (0.70-1.30); GLOMERULAR FILTRATION RATE > 60.0 (>49); GLUCOSE, FASTING 127 MG/DL (74-106); SODIUM LEVEL 137 MMOL/L (136-145); TOTAL PROTEIN 6.7 G/DL (5.7-8.2)
[2024-09-16] MEDS ORDERED: KETOROLAC 30 MG/ML 1ML VIAL As Ordered ONE (14:28)
[2024-09-16] MEDS: KETOROLAC 30 MG/ML 1ML VIAL IM ONE (14:37)
[2024-09-16 17:00] LABS: KETONE, URINE AUTO RFX NEGATIVE (NEGATIVE); LEUKOCYTE ESTERASE UR AUTO RFX TRACE (NEGATIVE); MUCUS, URINE RFX SMALL (NEGATIVE); NITRITE, URINE AUTO RFX NEGATIVE (NEGATIVE); RBC, URINE AUTO RFX 2 /HPF (0-3); SQUAM EPITHELIAL CELL UR AURFX 0 /HPF (0-6); WBC, URINE AUTO RFX 1 /HPF (0-3)
[2024-09-16] MEDS ORDERED: KETO10TAB PO (18:32)
[2024-09-16 18:42] VITALS: BP 128/85; TEMP 97; O2SAT 97
== END 2024-09-16 18:43 | disposition home or self-care (01) ==
LOC: M ED 13:09
DX: K80.20 Calculus of gallbladder without cholecystitis without obstruction (principal); J45.909 Unspecified asthma, uncomplicated; K21.9 Gastro-esophageal reflux disease without esophagitis; K57.30 Diverticulosis of large intestine without perforation or abscess without bleeding; N40.0 Benign prostatic hyperplasia without lower urinary tract symptoms; M54.50 Low back pain, unspecified; F41.9 Anxiety disorder, unspecified; Z87.442 Personal history of urinary calculi; Z79.52 Long term (current) use of systemic steroids; Z79.83 Long term (current) use of bisphosphonates; Z79.899 Other long term (current) drug therapy; Z79.1 Long term (current) use of non-steroidal anti-inflammatories (NSAID)
CPT/HCPCS: 71045; 76705; 80048; 80076; 81001; 83690; 85025; 87086; 96372; 99284; J1885

== ENCOUNTER → 2025-05-10 | Outpatient (CLI) | payer OTHER ==
[~2025-05-10] MED LIST changes: -FLOM0.4C39 PO; +KETO10TAB PO; -SILD20TA11 PO; +SILD20TA64 PO; +TAMS-18 PO
== END ==
LOC: M SOG 07:39
PROVIDERS: ATTEND Orthopaedic Surgery
DX: M25.551 Pain in right hip (principal)